=== PATIENT | female | born 1960 | race Caucasian/White ===

== ENCOUNTER 2016-06-27 16:48 | Emergency (ER) | payer MEDICAID ==
[2016-06-27 18:25] VITALS: BP 161/95
--- NOTE | 2016-06-27 20:13 | EDM.PDOC ---
ED HPI Trauma - General Chief Complaint: Lower Extremity Injury/Pain Stated Complaint: ANKLE/FEET EDEMA Time Seen by Provider: 06/27/16 20:03 Source: Reports: Patient History Limitations: Reports: No limitations - History of Present Illness INITIAL COMMENTS - FREE TEXT/NARRATIVE: And this lady comes to the emergency department today complaining of her ankles and feet swelling for one day. She says this has never happened before and she is worried about what's happening. She denies any shortness of breath. There is no history of heart or kidney disease. She says she's taking a lot of medications but no diuretics. She's not complaining of any kind of chest pain or palpitations. She has a local primary care provider Allergies/ADRs: Allergies bupropion HCl [From Wellbutrin] Allergy (Verified 06/27/16 18:11) Tremors cortisone [Cortisone] Allergy (Verified 06/27/16 18:11) Itching duloxetine HCl [From Cymbalta] Allergy (Verified 06/27/16 18:11) Hallucinations escitalopram [From Lexapro] Allergy (Verified 06/27/16 18:11) Cannot Remember CANNOT TAKE GENERIC LEXAPRO, BUT CAN TAKE REAL LEXAPRO fluoxetine HCl [From Prozac] Allergy (Verified 06/27/16 18:11) Cannot Remember Influenza Virus Vaccines Allergy (Verified 06/27/16 18:11) Cannot Remember levofloxacin [From Levaquin] Allergy (Verified 06/27/16 18:11) Cannot Remember Penicillins Allergy (Verified 06/27/16 18:11) Airway Tightness tiotropium bromide [From Spiriva with HandiHaler] Allergy (Verified 06/27/16 18: 11) Cannot Remember aspirin Adverse Reaction (Verified 06/27/16 18:11) Nausea codeine Adverse Reaction (Verified 06/27/16 18:11) Vomiting Home Medications: Ambulatory Orders LORazepam [Ativan] 0.5 mg PO Q6H PRN 01/05/13 [Confirmed 06/27/16] Multivitamin [Multi-Vitamin Daily] 1 each PO DAILY 01/05/13 [Confirmed 06/27/16] SUMAtriptan [Imitrex] 50 mg PO ASDIRECTED PRN 01/05/13 [Confirmed 06/27/16] Prazosin HCl [Prazosin] 3 mg PO BEDTIME PRN 05/01/14 [Confirmed 06/27/16] Acetaminophen [Tylenol Extra Strength] 500 mg PO Q6H PRN 08/01/14 [Confirmed 04/03] Gabapentin [Neurontin] 1,200 mg PO TID 08/01/14 [Confirmed 06/27/16] Lidocaine 5% [Lidoderm 5%] 1 patch TOP DAILY PRN 08/01/14 [Confirmed 06/27/16] cycloSPORINE [Restasis] 1 each OP BEDTIME 08/01/14 [Confirmed 06/27/16] Albuterol Sulfate [Proair Hfa] 1 puff IH Q4H PRN 09/04/14 [Confirmed 06/27/16] Omeprazole [Prilosec] 40 mg PO BID 09/04/14 [Confirmed 06/27/16] Amitriptyline [Elavil] 50 mg PO BEDTIME 04/02/16 [Confirmed 06/27/16] Dicyclomine [Bentyl] 10 mg PO QID PRN 04/02/16 [Confirmed 06/27/16] Promethazine [Phenergan] 25 mg PO Q6H PRN 04/02/16 [Confirmed 06/27/16] Rizatriptan Benzoate [Maxalt] 10 mg PO BID PRN 04/02/16 [Confirmed 06/27/16] Past Medical History HEENT History: Reports: Impaired vision, Other (see below) Other HEENT History: Dry eyes Respiratory History: Reports: COPD, Pneumonia, recurrent Gastrointestinal History: Reports: Cholelithiasis, GERD Genitourinary History: Reports: Pyelonephritis 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: , 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 Musculoskeletal History: Reports: Back pain, chronic Neurological History: Reports: Migraines Psychiatric History: Reports: Depression Dermatologic History: Reports: Other (see below) Other Dermatologic History: scabies - Infectious Disease History Infectious Disease History: Reports: Chicken pox, Measles, Mumps - Past Surgical History HEENT Surgical History: Reports: None Respiratory Surgical History: Reports: None GI Surgical History: Reports: Appendectomy, Cholecystectomy, Colonoscopy, EGD, Hernia repair/other Female Surgical History: Reports: Breast biopsy, Hysterectomy, Salpingo- oophorectomy Neurological Surgical History: Reports: None Musculoskeletal Surgical History: Reports: Arthroscopic procedure Other Musculoskeletal Surgeries/Procedures:: acl repair on both Dermatological Surgical History: Reports: None Social & Family History - Tobacco Use Smoking Status *Q: Current Every Day Smoker Years of Tobacco use: 40 Packs/Tins Daily: 0.2 Used Tobacco, but Quit: No Month Tobacco Last Used: august Second Hand Smoke Exposure: No - Caffeine Use Caffeine Use: Reports: Coffee - Alcohol Use Days Per Week of Alcohol Use: 0 Number of Drinks Per Day: 1 Total Drinks Per Week: 0 - Recreational Drug Use Recreational Drug Use: Yes Drug Use in Last 12 Months: Yes Recreational Drug Type: Reports: Marijuana/Hashish Recreational Drug Use Frequency: Weekly Recreational Drug Last Use: 09/04 Review of Systems - Review of Systems Review Of Systems: ROS reveals no pertinent complaints other than HPI. Trauma Exam - Physical Exam Exam: See Below Exam Limited By: Uncooperative General Appearance: Reports: alert, no apparent distress Head: Reports: atraumatic Eyes: bilateral eye: normal inspection Throat/Mouth: Reports: Normal oropharynx Respiratory Exam: Reports: lungs clear Cardiovascular: Reports: regular rate, rhythm, no murmur GI/Abdominal: Reports: non tender Extremities: Reports: pedal edema (Maximum 1+ pedal edema) Neurologic: Reports: no motor/sensory deficits, normal mood/affect Skin: Reports: Normal color Course - Vital Signs Last Recorded V/S: Last Vital Signs Temp 36.1 C 06/27/16 18:25 Pulse 90 06/27/16 18:25 Resp 20 06/27/16 18:25 BP 161/95 H 06/27/16 18:25 Pulse Ox 98 06/27/16 18:25 - Re-Assessments/Exams Free Text/Narrative Re-Assessment/Exam: 06/27/16 20:11 I explained to this lady that do to the ER being overloaded it would take at least another 3 hours or so if I were to order labs for her. I don't think that 's really needed so I offered to just treat her with a diuretic and she can followup with her primary care provider in a few days and she wanted to do that I think that's is perfectly appropriate in this situation. Departure - Departure Time of Disposition: 20:12 Disposition: Home, Self-Care 01 Condition: fair Clinical Impression: Pedal edema Forms: ED Department Discharge Additional Instructions: Take furosemide 20 mg daily only as needed for excess fluid. See your primary care provider sometime within the next few days. Return to the ER anytime if needed
== END 2016-06-27 20:24 | disposition home or self-care (01) ==
LOC: JP.ED 16:48
DX: R60.0 Localized edema (principal); J44.9 Chronic obstructive pulmonary disease, unspecified; F17.210 Nicotine dependence, cigarettes, uncomplicated; Z88.8 Allergy status to other drugs, medicaments and biological substances; Z79.899 Other long term (current) drug therapy; Z88.0 Allergy status to penicillin
CPT/HCPCS: 99283

== ENCOUNTER 2016-10-31 06:49 | Emergency (ER) | payer MEDICAID ==
[2016-10-31] MEDS ORDERED: HYDROmorphone 1 MG/ML Syringe IM ONE (08:05)
[2016-10-31] MEDS ORDERED: Ondansetron 4 MG Tab.DIS PO ONE (08:06)
[2016-10-31 08:49] VITALS: BP 120/70
--- NOTE | 2016-10-31 09:25 | EDM.PDOC ---
ED HPI GENERAL MEDICAL PROBLEM - General Chief Complaint: Lower Extremity Injury/Pain Stated Complaint: L KNEE PAIN Time Seen by Provider: 10/31/16 07:54 Source of Information: Reports: Patient History Limitations: Reports: No Limitations - History of Present Illness INITIAL COMMENTS - FREE TEXT/NARRATIVE: This lady had a left total knee replacement on October 13. Afterwards she went to a rehabilitation facility until 6 days ago. Now she's back home she has a prescription for oxycodone 5 mg every 4 hours when necessary last night she had a bad night. She was nauseated she was tossing and turning and never could get comfortable. She wasn't able to take her pain medications because she was nauseated this morning she felt a little bit hot clammy and cold. She never had any chest pain or palpitations. She does complain of a lot of pain to her knee and feels like the knee is getting a little bit warm. She can bear weight on it however. She is still able to move it without much difficulty. Left Knee Pain Score (Numeric/FACES): 8 - Related Data Allergies Allergy/AdvReac Type Severity Reaction Status Date / Time bupropion HCl Allergy Tremors Verified 10/31/16 07:16 [From Wellbutrin] cortisone [Cortisone] Allergy Itching Verified 10/31/16 07:16 duloxetine HCl Allergy Hallucinati Verified 10/31/16 07:16 [From Cymbalta] ons escitalopram [From Lexapro] Allergy Cannot Verified 10/31/16 07:16 Remember fluoxetine HCl [From Prozac] Allergy Cannot Verified 10/31/16 07:16 Remember Influenza Virus Vaccines Allergy Cannot Verified 10/31/16 07:16 Remember levofloxacin [From Levaquin] Allergy Cannot Verified 10/31/16 07:16 Remember Penicillins Allergy Airway Verified 10/31/16 07:16 Tightness tiotropium bromide Allergy Cannot Verified 10/31/16 07:16 [From Spiriva with Remember HandiHaler] aspirin AdvReac Nausea Verified 10/31/16 07:16 codeine AdvReac Vomiting Verified 10/31/16 07:16 Home Meds: Home Meds LORazepam [Ativan] 0.5 mg PO Q6H PRN 01/05/13 [History] SUMAtriptan [Imitrex] 50 mg PO ASDIRECTED PRN 01/05/13 [History] Prazosin HCl [Prazosin] 3 mg PO BEDTIME PRN 05/01/14 [History] Acetaminophen [Tylenol Extra Strength] 500 mg PO Q6H PRN 08/01/14 [History] Gabapentin [Neurontin] 900 mg PO TID 08/01/14 [History] Lidocaine 5% [Lidoderm 5%] 1 patch TOP DAILY PRN 08/01/14 [History] cycloSPORINE [Restasis] 1 each OP BEDTIME 08/01/14 [History] Albuterol Sulfate [Proair Hfa] 1 puff IH Q4H PRN 09/04/14 [History] Omeprazole [Prilosec] 40 mg PO BID 09/04/14 [History] Dicyclomine [Bentyl] 10 mg PO QID PRN 04/02/16 [History] Promethazine [Phenergan] 25 mg PO Q6H PRN 04/02/16 [History] Rizatriptan Benzoate [Maxalt] 10 mg PO BID PRN 04/02/16 [History] oxyCODONE 5 mg PO Q4H 10/31/16 [History] Past Medical History HEENT History: Reports: Impaired Vision Other HEENT History: Dry eyes Respiratory History: Reports: COPD, Pneumonia, Recurrent Gastrointestinal History: Reports: Cholelithiasis, GERD Genitourinary History: Reports: Pyelonephritis 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: , 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 Musculoskeletal History: Reports: Back Pain, Chronic Neurological History: Reports: Migraines Psychiatric History: Reports: Anxiety, Depression Dermatologic History: Reports: Other (See Below) Other Dermatologic History: scabies - Infectious Disease History Infectious Disease History: Reports: Chicken Pox, Measles, Mumps, Pertussis ( Whooping Cough) - Past Surgical History GI Surgical History: Reports: Appendectomy, Cholecystectomy, Colonoscopy, EGD, Hernia Repair/Other Female Surgical History: Reports: Breast Biopsy, Hysterectomy, Salpingo- Oophorectomy Neurological Surgical History: Reports: None Musculoskeletal Surgical History: Reports: Arthroscopic Procedure, Knee Replacement Social & Family History - Tobacco Use Smoking Status *Q: Current Every Day Smoker Years of Tobacco use: 40 Packs/Tins Daily: 0.5 Used Tobacco, but Quit: No Month Tobacco Last Used: august Second Hand Smoke Exposure: No - Caffeine Use Caffeine Use: Reports: Coffee, Soda - Alcohol Use Days Per Week of Alcohol Use: 0 Number of Drinks Per Day: 1 Total Drinks Per Week: 0 - Recreational Drug Use Recreational Drug Use: Yes Drug Use in Last 12 Months: Yes Recreational Drug Type: Reports: Marijuana/Hashish Recreational Drug Use Frequency: Weekly Recreational Drug Last Use: 09/04 Review of Systems - Review of Systems Review Of Systems: ROS reveals no pertinent complaints other than HPI. Constitutional: Reports: Other (See history of present illness) Eyes: Reports: No Symptoms, Other Ears: Reports: Previous Injury Mouth/Throat: Reports: No Symptoms Respiratory: Reports: No Symptoms Cardiovascular: Reports: No Symptoms GI/Abdominal: Reports: Other (See history of present illness) Genitourinary: Reports: No Symptoms Musculoskeletal: Reports: Other Skin: Reports: No Symptoms (See history of present illness) ED EXAM, GENERAL - Physical Exam Exam: See Below Exam Limited By: No Limitations General Appearance: Alert, Obese Eye Exam: Bilateral Eye: Normal Inspection Throat/Mouth: Normal Oropharynx Respiratory/Chest: Lungs Clear Cardiovascular: Regular Rate, Rhythm Extremities: Other (There is a midline scar to the left knee. It has some tape on it the incision appears to be intact there is no drainage. There some just slight erythema to the anterior part of the knee it's slightly warm it's nontender she's able to move it about 30-45 without too much pain. There is no swelling of the calf or foot calf and foot are nontender and no discoloration.) Course - Vital Signs Last Recorded V/S: Last Vital Signs Temp 36.4 C 10/31/16 08:48 Pulse 75 10/31/16 08:48 Resp 14 10/31/16 08:48 BP 120/70 10/31/16 08:48 Pulse Ox 100 10/31/16 08:48 - Orders/Labs/Meds Labs: Laboratory Tests 10/31/16 10/31/16 Range/Units 08:10 08:10 WBC 6.2 (4.5-11.0) K/uL RBC 3.89 (3.30-5.50) M/uL Hgb 11.9 L (12.0-15.0) g/dL Hct 36.1 (36.0-48.0) % MCV 93 (80-98) fL MCH 31 (27-31) pg MCHC 33 (32-36) % Plt Count 434 H (150-400) K/uL Neut % (Auto) 68 H (36-66) % Lymph % (Auto) 18 L (24-44) % Branch % (Auto) 8 H (2-6) % Eos % (Auto) 5 H (2-4) % Baso % (Auto) 1 (0-1) % Sodium 141 (140-148) mmol/L Potassium 3.7 (3.6-5.2) mmol/L Chloride 105 (100-108) mmol/L Carbon Dioxide 29 (21-32) mmol/L Anion Gap 7.5 (5.0-14.0) mmol/L BUN 11 (7-18) mg/dL Creatinine 0.8 (0.6-1.0) mg/dL Est Cr Clr Drug Dosing 67.80 mL/min Estimated GFR (MDRD) > 60 (>60) Glucose 111 H (74-106) mg/dL Calcium 9.6 D (8.5-10.1) mg/dL Meds: Medications Discontinued Medications Generic Name Dose Route Start Last Admin Trade Name Rafael PRN Reason Stop Dose Admin Hydromorphone HCl 2 mg 10/31/16 08:05 10/31/16 08:30 Dilaudid IM 10/31/16 08:06 2 mg ONETIME ONE Administration Ondansetron HCl 8 mg 10/31/16 08:06 10/31/16 08:30 Zofran Odt PO 10/31/16 08:07 8 mg ONETIME ONE Administration - Re-Assessments/Exams Free Text/Narrative Re-Assessment/Exam: 10/31/16 09:23 She received Dilaudid 1.5 mg IM and Zofran 8 mg sublingual. This is given her good pain relief. A CBC and chem show no suggestion of any infectious process. Departure - Departure Time of Disposition: 09:24 Disposition: Home, Self-Care 01 Condition: Fair Clinical Impression: Inadequate pain control - Discharge Information Forms: ED Department Discharge Additional Instructions: Continue to use the oxycodone. You may increase it to 2 tablets, that is 10 mg every 4 hours as needed. You may take some Tylenol along with each dose. For nausea take the ondansetron either 4 or 8 mg sublingual every 6-8 hours. If you notice any worsening symptoms with your knee then be sure to see a doctor and have it rechecked.
== END 2016-10-31 09:49 | disposition home or self-care (01) ==
LOC: JP.ED 06:49
DX: M25.562 Pain in left knee (principal); J44.9 Chronic obstructive pulmonary disease, unspecified; K21.9 Gastro-esophageal reflux disease without esophagitis; F41.9 Anxiety disorder, unspecified; F32.9 Major depressive disorder, single episode, unspecified; F17.210 Nicotine dependence, cigarettes, uncomplicated; Z79.899 Other long term (current) drug therapy; Z88.0 Allergy status to penicillin; Z88.1 Allergy status to other antibiotic agents; Z88.5 Allergy status to narcotic agent; Z88.8 Allergy status to other drugs, medicaments and biological substances; Z96.652 Presence of left artificial knee joint; Z90.49 Acquired absence of other specified parts of digestive tract; Z90.710 Acquired absence of both cervix and uterus; Z98.890 Other specified postprocedural states
CPT/HCPCS: 36415; 80048; 85025; 96372; 99284; A9270; J1170

== ENCOUNTER 2016-11-01 03:08 | Emergency (ER) | payer MEDICAID ==
[2016-11-01 03:25] VITALS: BP 131/95
[2016-11-01] MEDS ORDERED: Sodium Chloride 0.9% 10 ML Syringe FLUSH PRN (03:42)
[2016-11-01] MEDS ORDERED: Prochlorperazine 10 MG/2 ML SDV IVPUSH ONE (03:42)
[2016-11-01] MEDS ORDERED: LORazepam 2 MG/ML MDV IVPUSH ONE (03:42)
[2016-11-01] MEDS ORDERED: HYDROmorphone 1 MG/ML Syringe IVPUSH ONE (03:42)
[2016-11-01] MEDS ORDERED: Sodium Chloride 0.9% 1,000 ML IV SCH (03:45)
--- NOTE | 2016-11-01 03:46 | EDM.PDOC ---
ED HPI GENERAL MEDICAL PROBLEM - General Chief Complaint: Lower Extremity Injury/Pain Stated Complaint: MEDICAL VIA [facility] Time Seen by Provider: 11/01/16 03:36 Source of Information: Reports: Patient, RN Notes Reviewed History Limitations: Reports: No Limitations - History of Present Illness INITIAL COMMENTS - FREE TEXT/NARRATIVE: 66-year-old female presents emergency department day complaint of ongoing left knee pain she is postop knee replacement on 13 October she initially tried hydrocodone inadequate pain control she was then switched to oxycodone she continues to have nausea and vomiting unable to keep pain medication down feels her pain is inadequately controlled. Was in the emergency department within the last 24 hours same complaint was given Dilaudid and Zofran. 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(s), Other (see below) Other Treatments CHECKERING MACHINE ADJUSTER: oxycodone, zofran Left Knee Pain Score (Numeric/FACES): 6 Left groin Pain Score (Numeric/FACES): 8 - Related Data Allergies Allergy/AdvReac Type Severity Reaction Status Date / Time bupropion HCl Allergy Tremors Verified 10/31/16 07:16 [From Wellbutrin] cortisone [Cortisone] Allergy Itching Verified 10/31/16 07:16 duloxetine HCl Allergy Hallucinati Verified 10/31/16 07:16 [From Cymbalta] ons escitalopram [From Lexapro] Allergy Cannot Verified 10/31/16 07:16 Remember fluoxetine HCl [From Prozac] Allergy Cannot Verified 10/31/16 07:16 Remember Influenza Virus Vaccines Allergy Cannot Verified 10/31/16 07:16 Remember levofloxacin [From Levaquin] Allergy Cannot Verified 10/31/16 07:16 Remember Penicillins Allergy Airway Verified 10/31/16 07:16 Tightness tiotropium bromide Allergy Cannot Verified 10/31/16 07:16 [From Spiriva with Remember HandiHaler] aspirin AdvReac Nausea Verified 10/31/16 07:16 codeine AdvReac Vomiting Verified 10/31/16 07:16 Home Meds: Home Meds LORazepam [Ativan] 0.5 mg PO Q6H PRN 01/05/13 [History] SUMAtriptan [Imitrex] 50 mg PO ASDIRECTED PRN 01/05/13 [History] Prazosin HCl [Prazosin] 3 mg PO BEDTIME PRN 05/01/14 [History] Acetaminophen [Tylenol Extra Strength] 500 mg PO Q6H PRN 08/01/14 [History] Gabapentin [Neurontin] 900 mg PO TID 08/01/14 [History] Lidocaine 5% [Lidoderm 5%] 1 patch TOP DAILY PRN 08/01/14 [History] cycloSPORINE [Restasis] 1 each OP BEDTIME 08/01/14 [History] Albuterol Sulfate [Proair Hfa] 1 puff IH Q4H PRN 09/04/14 [History] Omeprazole [Prilosec] 40 mg PO BID 09/04/14 [History] Dicyclomine [Bentyl] 10 mg PO QID PRN 04/02/16 [History] Promethazine [Phenergan] 25 mg PO Q6H PRN 04/02/16 [History] Rizatriptan Benzoate [Maxalt] 10 mg PO BID PRN 04/02/16 [History] oxyCODONE 5 mg PO Q4H 10/31/16 [History] Past Medical History HEENT History: Reports: Impaired Vision Other HEENT History: Dry eyes Respiratory History: Reports: COPD, Pneumonia, Recurrent Gastrointestinal History: Reports: Cholelithiasis, GERD Genitourinary History: Reports: Pyelonephritis 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: , 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 Musculoskeletal History: Reports: Back Pain, Chronic Neurological History: Reports: Migraines Psychiatric History: Reports: Anxiety, Depression Dermatologic History: Reports: Other (See Below) Other Dermatologic History: scabies - Infectious Disease History Infectious Disease History: Reports: Chicken Pox - Past Surgical History GI Surgical History: Reports: Appendectomy, Cholecystectomy, Colonoscopy, EGD, Hernia Repair/Other Female Surgical History: Reports: Breast Biopsy, Hysterectomy, Salpingo- Oophorectomy Musculoskeletal Surgical History: Reports: Arthroscopic Procedure, Knee Replacement, Other (See Below) Other Musculoskeletal Surgeries/Procedures:: Left knee replacement 10/13/16 Social & Family History - Family History Family Medical History: Unobtainable - Tobacco Use Smoking Status *Q: Current Status Unknown Years of Tobacco use: 40 Packs/Tins Daily: 0.5 Used Tobacco, but Quit: No Month Tobacco Last Used: august Second Hand Smoke Exposure: No - Caffeine Use Caffeine Use: Reports: Coffee - Alcohol Use Days Per Week of Alcohol Use: 0 Number of Drinks Per Day: 1 Total Drinks Per Week: 0 - Recreational Drug Use Recreational Drug Use: No Drug Use in Last 12 Months: Yes Recreational Drug Type: Reports: Marijuana/Hashish Recreational Drug Use Frequency: Weekly Recreational Drug Last Use: 09/04 Review of Systems - Review of Systems Review Of Systems: See Below Constitutional: Reports: No Symptoms Respiratory: Reports: No Symptoms Cardiovascular: Reports: No Symptoms GI/Abdominal: Reports: Nausea, Vomiting Musculoskeletal: Reports: Joint Pain ED EXAM, GENERAL - Physical Exam Exam: See Below Free Text/Narrative:: Examination at the knee surgical wounds clean dry and intact is mild erythema around the surgical incision but it is not warm to the touch nonspecifically tender to the touch mild amount of edema noted but not out of the ordinary postoperative Exam Limited By: No Limitations General Appearance: Alert, WD/WN, Moderate Distress Respiratory/Chest: No Respiratory Distress, Lungs Clear, Normal Breath Sounds, No Accessory Muscle Use Cardiovascular: Regular Rate, Rhythm, No Murmur GI/Abdominal: Soft, Non-Tender Course - Vital Signs Last Recorded V/S: Last Vital Signs Temp 97.5 F 11/01/16 03:17 Pulse 96 11/01/16 03:17 Resp 14 11/01/16 03:17 BP 131/95 H 11/01/16 03:17 Pulse Ox 98 11/01/16 03:17 - Orders/Labs/Meds Orders: Active Orders 24 hr Category Date Time Status Peripheral IV Care [RC] . DIRECTED Care 11/01/16 03:42 Active Sodium Chloride 0.9% [Normal Saline] 1,000 ml Med 11/01/16 03:45 Active IV ASDIRECTED Sodium Chloride 0.9% [Saline Flush] Med 11/01/16 03:42 Active 10 ml FLUSH ASDIRECTED PRN Peripheral IV Insertion Adult [OM.PC] Urgent Oth 11/01/16 03:41 Ordered Medication Orders Sodium Chloride (Normal Saline) 1,000 mls @ 500 mls/hr IV ASDIRECTED ISABEL Last Admin: 11/01/16 04:01 Dose: 500 mls/hr Sodium Chloride (Saline Flush) 10 ml FLUSH ASDIRECTED PRN PRN Reason: Keep Vein Open Last Admin: 11/01/16 03:55 Dose: 10 ml Meds: Medications Generic Name Dose Route Start Last Admin Trade Name Rafael PRN Reason Stop Dose Admin Sodium Chloride 1,000 mls @ 500 mls/hr 11/01/16 03:45 11/01/16 04:01 Normal Saline IV 500 mls/hr ASDIRECTED ISABEL Administration Sodium Chloride 10 ml 11/01/16 03:42 11/01/16 03:55 Saline Flush FLUSH 10 ml ASDIRECTED PRN Administration Keep Vein Open Discontinued Medications Generic Name Dose Route Start Last Admin Trade Name Rafael PRN Reason Stop Dose Admin Hydromorphone HCl 1 mg 11/01/16 03:42 11/01/16 04:18 Dilaudid IVPUSH 11/01/16 03:43 1 mg ONETIME ONE Administration Lorazepam 1 mg 11/01/16 03:42 11/01/16 04:16 Ativan IVPUSH 11/01/16 03:43 1 mg ONETIME ONE Administration Prochlorperazine Edisylate 5 mg 11/01/16 03:42 11/01/16 04:08 Compazine IVPUSH 11/01/16 03:43 5 mg ONETIME ONE Administration Departure - Departure Time of Disposition: 06:32 Disposition: Home, Self-Care 01 Condition: Fair Clinical Impression: Inadequate pain control - Discharge Information Forms: ED Department Discharge Additional Instructions: Use Toradol as needed for pain control in combination with Tylenol, Please followup with your primary care provider in 3-5 days if not better, please call return to the emergency department with worsening of symptoms. - My Orders Last 24 Hours: My Active Orders 11/01/16 03:41 Peripheral IV Insertion Adult [OM.PC] Urgent 11/01/16 03:42 Peripheral IV Care [RC] . DIRECTED Sodium Chloride 0.9% [Saline Flush] 10 ml FLUSH ASDIRECTED PRN 11/01/16 03:45 Sodium Chloride 0.9% [Normal Saline] 1,000 ml IV ASDIRECTED - Assessment/Plan Last 24 Hours: My Active Orders 11/01/16 03:41 Peripheral IV Insertion Adult [OM.PC] Urgent 11/01/16 03:42 Peripheral IV Care [RC] . DIRECTED Sodium Chloride 0.9% [Saline Flush] 10 ml FLUSH ASDIRECTED PRN 11/01/16 03:45 Sodium Chloride 0.9% [Normal Saline] 1,000 ml IV ASDIRECTED Plan: Assessment Acuity = acute Site and laterality = postoperative pain complicated patient with significant anxiety Etiology = right knee replacement Manifestations = none Location of injury = Home Lab values = none Plan We will to get her pain under control combination Dilaudid Ativan recommended by discontinuing the Percocet try Toradol as needed for pain in combination with Tylenol keep follow-up appointment with the orthopedics Patient was in agreement with the plan all questions were answered, they were instructed to return to the emergency department or call for worsening symptoms. This note was dictated using [email or web address] voice recognition software please call with any questions.
== END 2016-11-01 07:50 | disposition home or self-care (01) ==
LOC: JP.ED 03:08
DX: G89.18 Other acute postprocedural pain (principal); M25.562 Pain in left knee; Z79.899 Other long term (current) drug therapy; H54.7 Unspecified visual loss; J44.9 Chronic obstructive pulmonary disease, unspecified; Z87.01 Personal history of pneumonia (recurrent); K21.9 Gastro-esophageal reflux disease without esophagitis; Z88.8 Allergy status to other drugs, medicaments and biological substances; Z90.49 Acquired absence of other specified parts of digestive tract; Z90.710 Acquired absence of both cervix and uterus; Z96.659 Presence of unspecified artificial knee joint
CPT/HCPCS: 96361; 96374; 96375; 99283; J0780; J1170; J2060; J7040; J7050

== ENCOUNTER 2017-06-10 19:28 | Emergency (ER) | payer MEDICAID ==
[2017-06-10] MEDS ORDERED: Sodium Chloride 0.9% 10 ML Syringe FLUSH PRN (20:09)
[2017-06-10] MEDS ORDERED: Promethazine 25 MG/ML SDV IM ONE (20:14)
[2017-06-10] MEDS ORDERED: Lactated Ringers 1,000 ML IV SCH (20:15)
[2017-06-10] MEDS ORDERED: Ketorolac 30 MG/ML SDV IVPUSH ONE (20:16)
--- NOTE | 2017-06-10 20:16 | EDM.PDOC ---
ED HPI GENERAL MEDICAL PROBLEM - General Chief Complaint: Headache Stated Complaint: [facility] Time Seen by Provider: 06/10/17 19:45 Source of Information: Reports: Patient History Limitations: Reports: No Limitations - History of Present Illness INITIAL COMMENTS - FREE TEXT/NARRATIVE: Maylin presents today per EMS with complaints of nausea, vomiting, muscle aches and migraine since 1300 today. Maylin reports sudden onset while driving. She states she tried to lay down, she tried her maxalt and had more vomiting with photophobia. She also reports influenza exposure in her apartment building. She denies fever, diarrhea or recent injury. 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 ) Other Treatments CLINICAL RESEARCH NURSE: IM zofran Headache Pain Score (Numeric/FACES): 7 - Related Data Allergies Allergy/AdvReac Type Severity Reaction Status Date / Time cortisone [Cortisone] Allergy Itching Verified 06/10/17 19:35 escitalopram [From Lexapro] Allergy Cannot Verified 06/10/17 19:35 Remember fluoxetine HCl [From Prozac] Allergy Cannot Verified 06/10/17 19:35 Remember Influenza Virus Vaccines Allergy Cannot Verified 06/10/17 19:35 Remember levofloxacin [From Levaquin] Allergy Cannot Verified 06/10/17 19:35 Remember Penicillins Allergy Airway Verified 06/10/17 19:35 Tightness tiotropium bromide Allergy Cannot Verified 06/10/17 19:35 [From Spiriva with Remember HandiHaler] aspirin AdvReac Nausea Verified 06/10/17 19:35 bupropion HCl AdvReac Tremors Verified 06/10/17 19:35 [From Wellbutrin] codeine AdvReac Vomiting Verified 06/10/17 19:35 duloxetine HCl AdvReac Hallucinati Verified 06/10/17 19:35 [From Cymbalta] ons Home Meds: Home Meds LORazepam [Ativan] 0.5 mg PO Q6H PRN 01/05/13 [History] Prazosin HCl [Prazosin] 3 mg PO BEDTIME PRN 05/01/14 [History] Acetaminophen [Tylenol Extra Strength] 500 mg PO Q6H PRN 08/01/14 [History] Gabapentin [Neurontin] 900 mg PO TID 08/01/14 [History] Lidocaine 5% [Lidoderm 5%] 1 patch TOP DAILY PRN 08/01/14 [History] cycloSPORINE [Restasis] 1 each OP BEDTIME 08/01/14 [History] Albuterol Sulfate [Proair Hfa] 1 puff IH Q4H PRN 09/04/14 [History] Omeprazole [Prilosec] 40 mg PO BID 09/04/14 [History] Promethazine [Phenergan] 25 mg PO Q6H PRN 04/02/16 [History] Rizatriptan Benzoate [Maxalt] 10 mg PO BID PRN 04/02/16 [History] ARIPiprazole [Aripiprazole] 1 mg PO DAILY 06/10/17 [History] Past Medical History HEENT History: Reports: Impaired Vision Other HEENT History: Dry eyes Respiratory History: Reports: COPD, Pneumonia, Recurrent Gastrointestinal History: Reports: Cholelithiasis, GERD Genitourinary History: Reports: Pyelonephritis 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: , 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 Musculoskeletal History: Reports: Back Pain, Chronic Neurological History: Reports: Migraines Psychiatric History: Reports: Anxiety, Depression Dermatologic History: Reports: Other (See Below) Other Dermatologic History: scabies - Infectious Disease History Infectious Disease History: Reports: Chicken Pox, Measles, Mumps - Past Surgical History GI Surgical History: Reports: Appendectomy, Cholecystectomy, Colonoscopy, EGD, Hernia Repair/Other Female Surgical History: Reports: Breast Biopsy, Hysterectomy, Salpingo- Oophorectomy Musculoskeletal Surgical History: Reports: Arthroscopic Procedure, Knee Replacement, Other (See Below) Other Musculoskeletal Surgeries/Procedures:: Left knee replacement 10/13/16 Social & Family History - Family History Family Medical History: Unobtainable - Tobacco Use Smoking Status *Q: Current Every Day Smoker Years of Tobacco use: 40 Packs/Tins Daily: 0.5 Used Tobacco, but Quit: No Month Tobacco Last Used: august Second Hand Smoke Exposure: No - Caffeine Use Caffeine Use: Reports: Coffee, Soda - Alcohol Use Days Per Week of Alcohol Use: 2 Number of Drinks Per Day: 1 Total Drinks Per Week: 2 - Recreational Drug Use Recreational Drug Use: Yes Drug Use in Last 12 Months: Yes Recreational Drug Type: Reports: Marijuana/Hashish Recreational Drug Use Frequency: Daily Recreational Drug Last Use: 09/04 ED ROS GENERAL - Review of Systems Review Of Systems: See Below Constitutional: Reports: Chills. Denies: Fever, Malaise, Weakness HEENT: Reports: Other (She reports photophobia with her migraine. ). Denies: Ear Pain, Eye Pain, Throat Pain, Vision Change Respiratory: Denies: Shortness of Breath, Wheezing, Cough, Sputum, Hemoptysis Cardiovascular: Denies: Chest Pain, Blood Pressure Problem, Dyspnea on Exertion , Edema, Lightheadedness, Palpitations, PND, Syncope Endocrine: Reports: No Symptoms GI/Abdominal: Reports: Nausea, Vomiting. Denies: Black Stool, Bloody Stool, Constipation, Diarrhea, Difficulty Swallowing, Distension, Hematemesis, Hematochezia : Reports: No Symptoms Musculoskeletal: Reports: Other (generalized body aches, muscle aches) Skin: Denies: Cyanosis, Dryness, Pruritis, Rash, Erythema Neurological: Reports: Headache. Denies: Dizziness, Numbness, Syncope, Tingling , Trouble Speaking Psychiatric: Reports: No Symptoms Hematologic/Lymphatic: Reports: No Symptoms Immunologic: Reports: No Symptoms - Physical Exam Exam: See Below Text/Narrative:: Maylin is an alert and oriented 56 year old female presenting with sudden onset migraine without aura, nausea and vomiting. She tried resting, a dark room and use of maxalt without much relief. She reports her nausea and vomiting became worse since onset and she called 911. Exam Limited By: No Limitations General Appearance: Alert, Mild Distress Eye Exam: Bilateral Eye: EOMI, Normal Inspection, PERRL Ears: Normal External Exam, Normal Canal, Hearing Grossly Normal, Normal TMs Nose: Normal Inspection, Normal Mucosa, No Blood Throat/Mouth: Normal Inspection, Normal Lips, Normal Oropharynx, Normal Voice, No Airway Compromise Head Exam: Atraumatic, Normocephalic Neck: Normal Inspection, Supple, Non-Tender, Full Range of Motion. No: Lymphadenopathy (R), Lymphadenopathy (L) Respiratory/Chest: No Respiratory Distress, Lungs Clear, Normal Breath Sounds, No Accessory Muscle Use, Chest Non-Tender Cardiovascular: Normal Peripheral Pulses, Regular Rate, Rhythm, No Edema, No Gallop, No Murmur, No Rub GI/Abdominal: Normal Bowel Sounds, Soft, Non-Tender, No Organomegaly, No Distention, Other (obese) Neuro Exam (Abbreviated): Alert, Oriented, CN II-XII Intact, Normal Cognition, Normal Gait, No Motor/Sensory Deficits DTR: 2+: Patella (R), Patella (L), Achilles (R), Achilles (L) Back Exam: Normal Inspection, Full Range of Motion. No: CVA Tenderness (R), CVA Tenderness (L) Extremities: Normal Inspection, Normal Range of Motion, Non-Tender, No Pedal Edema, Normal Capillary Refill Psychiatric: Normal Affect, Normal Mood Skin Exam: Warm, Dry, Intact, Normal Color, No Rash Course - Vital Signs Last Recorded V/S: Last Vital Signs Temp 35.9 C 06/10/17 21:56 Pulse 80 06/10/17 21:56 Resp 16 06/10/17 21:56 BP 139/86 06/10/17 21:56 Pulse Ox 98 06/10/17 21:56 - Orders/Labs/Meds Orders: Active Orders 24 hr Category Date Time Status Lactated Ringers [Ringers, Lactated] 1,000 ml Med 06/10/17 20:15 Active IV ASDIRECTED Sodium Chloride 0.9% [Saline Flush] Med 06/10/17 20:09 Active 10 ml FLUSH ASDIRECTED PRN Saline Lock Insert [OM.PC] Routine Oth 06/10/17 20:09 Ordered Medication Orders Lactated Ringer's (Ringers, Lactated) 1,000 mls @ 1,000 mls/hr IV ASDIRECTED ISABEL Last Admin: 06/10/17 20:25 Dose: 1,000 mls/hr Sodium Chloride (Saline Flush) 10 ml FLUSH ASDIRECTED PRN PRN Reason: Keep Vein Open Last Admin: 06/10/17 20:25 Dose: 10 ml Meds: Medications Generic Name Dose Route Start Last Admin Trade Name Freq PRN Reason Stop Dose Admin Lactated Ringer's 1,000 mls @ 1,000 mls/hr 06/10/17 20:15 06/10/17 20:25 Ringers, Lactated IV 1,000 mls/hr ASDIRECTED ISABEL Administration Sodium Chloride 10 ml 06/10/17 20:09 06/10/17 20:25 Saline Flush FLUSH 10 ml ASDIRECTED PRN Administration Keep Vein Open Discontinued Medications Generic Name Dose Route Start Last Admin Trade Name Freq PRN Reason Stop Dose Admin Dexamethasone 8 mg 06/10/17 21:35 06/10/17 21:50 Dexamethasone IVPUSH 06/10/17 21:36 8 mg ONETIME ONE Administration Diphenhydramine HCl 50 mg 06/10/17 20:17 06/10/17 20:38 Benadryl IVPUSH 06/10/17 20:18 50 mg ONETIME ONE Administration Haloperidol Lactate 5 mg 06/10/17 21:34 06/10/17 21:47 Haldol IVPUSH 06/10/17 21:35 5 mg ONETIME ONE Administration Lactated Ringer's 1,000 mls @ 1,000 mls/hr 06/10/17 21:37 06/10/17 21:45 Ringers, Lactated IV 06/10/17 22:36 1,000 mls/hr BOLUS ONE Administration Ketorolac Tromethamine 30 mg 06/10/17 20:16 06/10/17 20:42 Toradol IVPUSH 06/10/17 20:17 30 mg ONETIME ONE Administration Pantoprazole Sodium 40 mg 06/10/17 22:01 06/10/17 22:08 Protonix Iv IVPUSH 06/10/17 22:02 40 mg ONETIME ONE Administration Promethazine HCl 25 mg 06/10/17 20:14 06/10/17 20:46 Phenergan IM 06/10/17 20:15 25 mg ONETIME ONE Administration - Re-Assessments/Exams Free Text/Narrative Re-Assessment/Exam: 06/10/17 21:36 Patient reports her nausea has improved, however her headaches has not. We will try haldol and dexamethasone. 06/10/17 22:36 Maylin reports she feels much better, her nausea and burning in her stomach has resolved. She denies headache at this time. She will be discharged after completion of 2 liter lactated ringers. She is in agreement with plan. Departure - Departure Time of Disposition: 22:38 Disposition: Home, Self-Care 01 Condition: Good Clinical Impression: Nausea, Acid reflux, Migraine without aura - Discharge Information Referrals: PCP,None [Primary Care Provider] - Forms: ED Department Discharge Additional Instructions: You have been evaluated and treated for migraine with nausea and acid reflux tonight. Your influenza screen as negative. You were given IV fluids and medications for nausea, pain and acid reflux. It would be best for you to go home and sleep. Drink gatorade and water to keep yourself hydrated. Use acetaminophen and ibuprofen as needed for pain. Follow up with your primary provider in 7 to 10 days for recheck. Return for worsening, issues or concerns. - My Orders Last 24 Hours: My Active Orders 06/10/17 20:09 Sodium Chloride 0.9% [Saline Flush] 10 ml FLUSH ASDIRECTED PRN Saline Lock Insert [OM.PC] Routine 06/10/17 20:15 Lactated Ringers [Ringers, Lactated] 1,000 ml IV ASDIRECTED - Assessment/Plan Last 24 Hours: My Active Orders 06/10/17 20:09 Sodium Chloride 0.9% [Saline Flush] 10 ml FLUSH ASDIRECTED PRN Saline Lock Insert [OM.PC] Routine 06/10/17 20:15 Lactated Ringers [Ringers, Lactated] 1,000 ml IV ASDIRECTED Assessment:: Migraine without aura Nausea Acid reflux Plan: Patient evaluated and treated for migraine with nausea and acid reflux tonight. Influenza screen as negative. She was given IV fluids and medications for nausea, pain and acid reflux. It would be best for her to go home and sleep. Drink gatorade and water to keep herself hydrated. Use acetaminophen and ibuprofen as needed for pain. Follow up with primary provider in 7 to 10 days for recheck. Return for worsening, issues or concerns.
[2017-06-10] MEDS ORDERED: diphenhydrAMINE 50 MG/ML SDV IVPUSH ONE (20:17)
[2017-06-10] MEDS ORDERED: Haloperidol Lactate 5 MG/ML SDV IVPUSH ONE (21:34)
[2017-06-10] MEDS ORDERED: Dexamethasone 4 MG/ML SDV IVPUSH ONE (21:35)
[2017-06-10] MEDS ORDERED: Lactated Ringers 1,000 ML IV ONE (21:37)
[2017-06-10 21:58] VITALS: BP 139/86
[2017-06-10] MEDS ORDERED: Pantoprazole 40 MG Vial IVPUSH ONE (22:01)
== END 2017-06-10 22:50 | disposition home or self-care (01) ==
LOC: JP.ED 19:28
DX: G43.009 Migraine without aura, not intractable, without status migrainosus (principal); K21.9 Gastro-esophageal reflux disease without esophagitis; F17.210 Nicotine dependence, cigarettes, uncomplicated; Z88.1 Allergy status to other antibiotic agents; Z88.7 Allergy status to serum and vaccine; Z88.8 Allergy status to other drugs, medicaments and biological substances; Z88.0 Allergy status to penicillin; Z88.6 Allergy status to analgesic agent; Z88.5 Allergy status to narcotic agent; Z79.899 Other long term (current) drug therapy
CPT/HCPCS: 87804; 96361; 96372; 96374; 96375; 99284; C9113; J1100; J1200; J1630; J1885; J2550; J7050; J7120

== ENCOUNTER 2018-12-19 08:03 | Emergency (ER) | payer MEDICAID ==
[2018-12-19 08:24] VITALS: BP 120/76
--- NOTE | 2018-12-19 08:59 | EDM.PDOC ---
ED HPI GENERAL MEDICAL PROBLEM - General Chief Complaint: ENT Problem Stated Complaint: POSSIBLE TOOTH ABCESS, FEVER Time Seen by Provider: 12/19/18 08:52 Source of Information: Reports: Patient, Family, RN Notes Reviewed History Limitations: Reports: No Limitations - History of Present Illness INITIAL COMMENTS - FREE TEXT/NARRATIVE: 58-year-old female presents emergency department today complaint of dental pain she has fractured tooth and now she developed swelling over jaw has had fevers for the last 3 days Right Lower Tooth/Teeth Pain Score (Numeric/FACES): 10 - Related Data Allergies Allergy/AdvReac Type Severity Reaction Status Date / Time Penicillins Allergy Intermediate Airway Verified 12/19/18 08:24 Tightness cortisone [Cortisone] Allergy Itching Verified 12/19/18 08:24 fluoxetine HCl [From Prozac] Allergy Cannot Verified 12/19/18 08:24 Remember Influenza Virus Vaccines Allergy Cannot Verified 12/19/18 08:24 Remember levofloxacin [From Levaquin] Allergy Cannot Verified 12/19/18 08:24 Remember tiotropium bromide Allergy Cannot Verified 12/19/18 08:24 [From Spiriva with Remember HandiHaler] aspirin AdvReac Nausea Verified 12/19/18 08:24 bupropion HCl AdvReac Tremors Verified 12/19/18 08:24 [From Wellbutrin] codeine AdvReac Vomiting Verified 12/19/18 08:24 duloxetine HCl AdvReac Hallucinati Verified 12/19/18 08:24 [From Cymbalta] ons escitalopram [From Lexapro] AdvReac Cannot Verified 12/19/18 08:24 Remember Home Meds: Home Meds LORazepam [Ativan] 0.5 mg PO Q6H PRN 01/05/13 [History] Prazosin HCl [Prazosin] 3 mg PO BEDTIME PRN 05/01/14 [History] Acetaminophen [Tylenol Extra Strength] 500 mg PO Q6H PRN 08/01/14 [History] Gabapentin [Neurontin] 900 mg PO TID 08/01/14 [History] Lidocaine 5% [Lidoderm 5%] 1 patch TOP DAILY PRN 08/01/14 [History] Albuterol Sulfate [Proair Hfa] 1 puff IH Q4H PRN 09/04/14 [History] Omeprazole [Prilosec] 40 mg PO BID 09/04/14 [History] Promethazine [Phenergan] 25 mg PO Q6H PRN 04/02/16 [History] ARIPiprazole [Aripiprazole] 1 mg PO DAILY 06/10/17 [History] Escitalopram [Lexapro] 20 mg PO DAILY 12/19/18 [History] Mirtazapine 45 mg PO DAILY 12/19/18 [History] Past Medical History HEENT History: Reports: Impaired Vision Other HEENT History: Dry eyes Respiratory History: Reports: COPD, Pneumonia, Recurrent Gastrointestinal History: Reports: Cholelithiasis, GERD Genitourinary History: Reports: Pyelonephritis 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: , 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 Musculoskeletal History: Reports: Back Pain, Chronic, Fibromyalgia Neurological History: Reports: Migraines Psychiatric History: Reports: Anxiety, Depression, Suicide Attempt Dermatologic History: Reports: Other (See Below) Other Dermatologic History: scabies - Infectious Disease History Infectious Disease History: Reports: Chicken Pox, Measles, Mumps - Past Surgical History GI Surgical History: Reports: Appendectomy, Cholecystectomy, Colonoscopy, EGD, Hernia Repair/Other Female Surgical History: Reports: Breast Biopsy, Hysterectomy, Salpingo- Oophorectomy Musculoskeletal Surgical History: Reports: Arthroscopic Procedure, Knee Replacement, Other (See Below) Other Musculoskeletal Surgeries/Procedures:: Left knee replacement 10/13/16 Social & Family History - Family History Family Medical History: Unobtainable - Tobacco Use Smoking Status *Q: Current Every Day Smoker Years of Tobacco use: 43 Packs/Tins Daily: 1 - Caffeine Use Caffeine Use: Reports: Coffee - Recreational Drug Use Recreational Drug Use: No Recreational Drug Type: Reports: Marijuana/Hashish ED ROS ENT - Review of Systems Review Of Systems: See Below Constitutional: Reports: Fever HEENT: Reports: Dental Pain Respiratory: Reports: No Symptoms Cardiovascular: Reports: No Symptoms ED EXAM, ENT - Physical Exam Exam: See Below Text/Narrative:: Tooth #30 to his fractured it is tender to palpation Exam Limited By: No Limitations General Appearance: Alert, Mild Distress Ears: Normal External Exam, Normal Canal, Hearing Grossly Normal, Normal TMs Mouth/Throat: Normal Inspection, Normal Gums, Normal Lips, Normal Oropharynx Course - Vital Signs Last Recorded V/S: Last Vital Signs Temp 97.3 F 12/19/18 08:23 Pulse 89 12/19/18 08:23 Resp 16 12/19/18 08:23 BP 120/76 12/19/18 08:23 Pulse Ox 97 12/19/18 08:23 - Orders/Labs/Meds Meds: Medications Discontinued Medications Generic Name Dose Route Start Last Admin Trade Name Rafael PRN Reason Stop Dose Admin Ketorolac Tromethamine 60 mg 12/19/18 09:15 Toradol IM 12/19/18 09:16 ONETIME ONE Departure - Departure Time of Disposition: 09:18 Disposition: Home, Self-Care 01 Condition: Fair Clinical Impression: Dental abscess, Dental caries - Discharge Information Referrals: Jose Maria Mitchell MD [Primary Care Provider] - Forms: ED Department Discharge Additional Instructions: Take full course of antibiotics, please report to the dental clinic tomorrow morning at 8:15 - Assessment/Plan Plan: Assessment Acuity = acute Site and laterality = dental abscess tooth #32 Etiology = probable dental caries and bacteria Manifestations = fever Location of injury = Home Lab values = none Plan she is placed on clindamycin 300 mg by mouth 4 times a day 10 days, provided Toradol injection 60 mg 1, called discussed case with dental clinic they will be able to get her in tomorrow morning 8:15 at which time she will be assessed for further evaluation, she will continue to use ibuprofen or Tylenol as needed for pain controll This note was dictated using [employer] voice recognition software please call with any questions on syntax or grammar.
[2018-12-19] MEDS ORDERED: Ketorolac 60 MG/2 ML SDV IM ONE (09:15)
== END 2018-12-19 09:32 | disposition home or self-care (01) ==
LOC: JP.ED 08:03
DX: K04.7 Periapical abscess without sinus (principal); K02.9 Dental caries, unspecified; J44.9 Chronic obstructive pulmonary disease, unspecified; K21.9 Gastro-esophageal reflux disease without esophagitis; F41.9 Anxiety disorder, unspecified; F32.9 Major depressive disorder, single episode, unspecified; F17.210 Nicotine dependence, cigarettes, uncomplicated; Z88.0 Allergy status to penicillin; Z88.1 Allergy status to other antibiotic agents; Z88.7 Allergy status to serum and vaccine; Z88.8 Allergy status to other drugs, medicaments and biological substances; Z79.899 Other long term (current) drug therapy
CPT/HCPCS: 96372; 99282; J1885

== ENCOUNTER 2019-02-09 15:33 | Emergency (ER) | payer MEDICAID ==
[2019-02-09] MEDS ORDERED: Sodium Chloride 0.9% 10 ML Syringe FLUSH PRN (16:10)
[2019-02-09] MEDS ORDERED: Aspirin 81 MG Tab.Chew PO ONE (16:21)
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
--- NOTE | 2019-02-09 16:48 | CRLCR ---
INDICATION: Chest pain TECHNIQUE: Chest 2 views COMPARISON: April 15, 2018 FINDINGS: Cardiovascular and mediastinum: Heart size and vasculature are normal in caliber and appearance. Lungs and pleural spaces: Stable calcified granulomas in the right upper lobe. Remainder of the lungs and pleural spaces are clear. Bones and soft tissues: No significant findings. IMPRESSION: No acute findings and no significant changes from the prior exam. Dictated by Alberto Norman MD @ Feb 09 2019 4:45PM Signed by Dr. Alberto Norman @ Feb 09 2019 4:46PM
[2019-02-09 18:35] VITALS: BP 139/79; PULSE 80
== END 2019-02-09 19:04 | disposition home or self-care (01) ==
LOC: JP.ED 15:33
DX: M94.0 Chondrocostal junction syndrome [Tietze] (principal); J44.9 Chronic obstructive pulmonary disease, unspecified; F41.9 Anxiety disorder, unspecified; F32.9 Major depressive disorder, single episode, unspecified; K21.9 Gastro-esophageal reflux disease without esophagitis; F17.210 Nicotine dependence, cigarettes, uncomplicated; Z79.899 Other long term (current) drug therapy; Z88.0 Allergy status to penicillin; Z88.7 Allergy status to serum and vaccine; Z88.8 Allergy status to other drugs, medicaments and biological substances; Z88.5 Allergy status to narcotic agent; Z88.6 Allergy status to analgesic agent
CPT/HCPCS: 36415; 71046; 80053; 84484; 85025; 93005; 99285; A9270

== ENCOUNTER 2019-03-12 08:13 | Inpatient (IN) | payer MEDICAID ==
[~2019-03-12 08:13] MED LIST: Bupivacaine 0.5%/EPINEPHrine 1:200,000 50 ML MDV ONE; Meropenem 500 MG SDV ONE
[2019-03-12] MEDS ORDERED: Gabapentin 300 MG Cap PO ONE (08:30)
[2019-03-12] MEDS ORDERED: Dextrose 5%-Lactated Ringers 1,000 ML IV SCH (08:45)
[2019-03-12] MEDS ORDERED: Ketamine 50 MG in Sodium Chloride 0.9% 49.5 ML IV SCH (09:00)
[2019-03-12] MEDS ORDERED: Ketamine 500 MG/5 ML MDV IV SCH (09:00)
[2019-03-12] MEDS ORDERED: Midazolam 1 MG/ML 2 ML SDV ONE (09:24)
[2019-03-12] MEDS ORDERED: fentaNYL 250 MCG/5 ML SDV ONE (09:24)
[2019-03-12] MEDS ORDERED: Neostigmine Methylsulfate 1 MG/ML 5 ML Syringe ONE (09:26)
[2019-03-12] MEDS ORDERED: Glycopyrrolate 0.2 MG/ML 5 ML MDV ONE (09:26)
[2019-03-12] MEDS ORDERED: Dexamethasone 4 MG/ML SDV ONE (09:26)
[2019-03-12] MEDS ORDERED: Propofol 200 MG/20 ML SDV ONE (09:26)
[2019-03-12] MEDS ORDERED: Rocuronium 50 MG/5 ML Vial ONE (09:26)
[2019-03-12] MEDS ORDERED: Ondansetron 4 MG/2 ML SDV ONE (09:26)
[2019-03-12] MEDS: Albuterol/Ipratropium 3.0-0.5 MG/3 ML Neb Soln NEB ONE (09:37)
[2019-03-12] MEDS ORDERED: Clindamycin Phosphate 900 MG in Sodium Chloride 0.9% 100 ML IV ONE (09:45)
[2019-03-12] MEDS ORDERED: fentaNYL 100 MCG/2 ML SDV ONE ×2 (11:10→11:55)
[2019-03-12] MEDS ORDERED: hydrOXYzine HCl 100 MG/2 ML SDV IM ONE (12:07)
[2019-03-12] MEDS ORDERED: HYDROmorphone 0.5 MG/0.5 ML Syringe IVPUSH PRN (13:48)
[2019-03-12] MEDS: HYDROmorphone 1 MG/ML Syringe IV PRN (14:03)
[2019-03-12] MEDS ORDERED: hydrOXYzine HCl 100 MG/2 ML SDV IM PRN (14:06)
[2019-03-12] MEDS ORDERED: Ondansetron 4 MG/2 ML SDV IVPUSH PRN (14:06)
[2019-03-12] MEDS ORDERED: Albuterol 0.083% 2.5 MG/3 ML Neb Soln INH PRN (14:07)
[2019-03-12] MEDS ORDERED: LORazepam 0.5 MG Tab PO PRN (14:13)
[2019-03-12] MEDS ORDERED: Promethazine 25 MG Tab PO PRN (14:13)
[2019-03-12] MEDS ORDERED: Cyclobenzaprine 10 MG Tab PO PRN (14:24)
[2019-03-12] MEDS: Albuterol 0.083% 2.5 MG/3 ML Neb Soln INH SCH ×2 (15:14→21:41)
[2019-03-12] MEDS ORDERED: Pantoprazole 40 MG Vial IV SCH (16:00)
[2019-03-12] MEDS: Dextrose 5%-Lactated Ringers 1,000 ML IV SCH (17:27)
[2019-03-12] MEDS: Clindamycin Phosphate 900 MG in Sodium Chloride 0.9% 100 ML IV SCH (18:08)
[2019-03-12] MEDS ORDERED: Prazosin 1 MG Cap PO SCH (21:00)
[2019-03-12] MEDS: cycloSPORINE Ophth Drops U/D Box of 30 EYEBOTH SCH (21:40)
[2019-03-12] MEDS: Gabapentin 300 MG Cap PO SCH (21:41)
[2019-03-12] MEDS: Ibuprofen 800 MG Tab PO SCH (21:44)
[2019-03-12] MEDS ORDERED: SUMAtriptan 50 MG Tab PO PRN (22:17)
[2019-03-13] MEDS: Clindamycin Phosphate 900 MG in Sodium Chloride 0.9% 100 ML IV SCH (01:40)
[2019-03-13] MEDS: Dextrose 5%-Lactated Ringers 1,000 ML IV SCH ×2 (01:40→05:39)
[2019-03-13] MEDS: HYDROmorphone 1 MG/ML Syringe IV PRN (01:46)
[2019-03-13] MEDS: Ibuprofen 800 MG Tab PO SCH ×3 (05:48→21:31)
[2019-03-13] MEDS: Albuterol 0.083% 2.5 MG/3 ML Neb Soln INH SCH ×4 (07:05→21:38)
[2019-03-13] MEDS ORDERED: Cyclobenzaprine 10 MG Tab PO PRN (07:48)
[2019-03-13] MEDS ORDERED: Albuterol 8 GM Inhaler INH PRN (07:48)
[2019-03-13] MEDS ORDERED: LORazepam 0.5 MG Tab PO PRN (07:48)
[2019-03-13] MEDS ORDERED: Lidocaine 5% 700 MG Patch TOP PRN (07:48)
[2019-03-13] MEDS ORDERED: Ibuprofen 600 MG Tab PO PRN (07:48)
[2019-03-13] MEDS ORDERED: Promethazine 25 MG Tab PO PRN (07:48)
[2019-03-13] MEDS ORDERED: SUMATRIPTAN 25 MG PO PRN (07:48)
[2019-03-13] MEDS ORDERED: Prazosin 1 MG Cap PO PRN (07:48)
[2019-03-13] MEDS: HYDROmorphone 2 MG Tab PO PRN ×3 (08:27→17:33)
[2019-03-13] MEDS: Escitalopram 20 MG Tab PO SCH (08:28)
[2019-03-13] MEDS: Gabapentin 300 MG Cap PO SCH ×3 (08:28→21:29)
[2019-03-13] MEDS: cycloSPORINE Ophth Drops U/D Box of 30 EYEBOTH SCH ×2 (08:30→21:28)
[2019-03-13] MEDS: Docusate Sodium 100 MG Cap PO SCH ×2 (08:33→21:29)
[2019-03-13] MEDS: Acetaminophen 325 MG Tab PO SCH ×3 (08:34→21:30)
[2019-03-13] MEDS: Pantoprazole 40 MG Tab.CR PO SCH (08:34)
[2019-03-13] MEDS ORDERED: Gabapentin 100 MG Cap PO SCH (09:00)
[2019-03-13] MEDS ORDERED: cycloSPORINE Ophth Drops U/D Box of 30 EYEBOTH SCH (09:00)
[2019-03-13] MEDS ORDERED: Magnesium Hydroxide 400 MG/5 ML Susp 30 ML Cup PO ONE (09:00)
[2019-03-13] MEDS ORDERED: Escitalopram 20 MG Tab PO SCH (09:00)
[2019-03-13] MEDS ORDERED: Bisacodyl 5 MG Tab PO ONE (10:00)
--- NOTE | 2019-03-13 10:43 | PN ---
DATE OF SERVICE: 03/13/2019 SUBJECTIVE: Maylin is postoperative day 1. She is sitting up in the chair. She states her pain is controlled. Temperature max 99.6. Oral intake 1360. Urine output is 1935. She did have a headache last evening and has improved today. REVIEW OF SYSTEMS: Remainder of review of systems negative for any pertinent positives and negatives. OBJECTIVE: GENERAL: Maylin Rodarte is a pleasant 58-year-old female. VITAL SIGNS: TPR is 99.6, 102, 18. Blood pressure 105/50. HEENT: Negative. NECK: Supple. HEART: Regular rate and rhythm. LUNGS: Clear. ABDOMEN: Dressings dry and intact. Abdominal binder is on. EXTREMITIES: Without peripheral edema. ASSESSMENT: Laparoscopic incarcerated incisional hernia repair with mesh, open repair of left inguinal hernia with mesh, and inguinal hernia repair for incisional hernia and left inguinal hernia. Date of surgery, 03/12/2019. Surgeon, Lisandro Villarreal MD. PLAN: 1. Change the patient's status to inpatient. 2. Restart home medications. 3. Discontinue Espitia. 4. Dilaudid 2 mg, 2-4 every 4 hours p.r.n. pain. 5. Acetaminophen 650 mg q.6 hours. 6. Milk of Magnesia 30 mL now and give Dulcolax 2 tabs 1 hour later. 7. Colace 100 mg b.i.d. 8. We will evaluate p.r.n. or in a.m. 9. Plan discharge in a.m. Piper Montoya PA-C /[id number]
[2019-03-13] MEDS: Albuterol/Ipratropium 3.0-0.5 MG/3 ML Neb Soln NEB ONE (14:31)
[2019-03-14] MEDS: HYDROmorphone 2 MG Tab PO PRN ×3 (00:35→19:42)
[2019-03-14] MEDS: Acetaminophen 325 MG Tab PO SCH ×5 (02:59→21:25)
[2019-03-14] MEDS: Ibuprofen 800 MG Tab PO SCH ×3 (05:27→21:29)
[2019-03-14] MEDS: Albuterol 0.083% 2.5 MG/3 ML Neb Soln INH SCH ×4 (07:06→21:29)
[2019-03-14] MEDS: Pantoprazole 40 MG Tab.CR PO SCH (07:32)
[2019-03-14] MEDS ORDERED: Magnesium Hydroxide 400 MG/5 ML Susp 30 ML Cup PO ONE (09:00)
[2019-03-14] MEDS: cycloSPORINE Ophth Drops U/D Box of 30 EYEBOTH SCH ×2 (09:10→21:25)
[2019-03-14] MEDS: Docusate Sodium 100 MG Cap PO SCH ×2 (09:11→21:24)
[2019-03-14] MEDS: Escitalopram 20 MG Tab PO SCH (09:11)
[2019-03-14] MEDS: Gabapentin 300 MG Cap PO SCH ×3 (09:11→21:24)
[2019-03-14] MEDS ORDERED: Bisacodyl 5 MG Tab PO ONE (10:00)
--- NOTE | 2019-03-14 10:41 | PN ---
DATE OF SERVICE: 03/14/2019 SUBJECTIVE: Maylin has had a small bowel movement, does not feel like it was adequate. Pain is 6-10, taking Dilaudid, Tylenol, and Motrin. Afebrile. Oral intake 1960, urine output 1450. OBJECTIVE: GENERAL: Maylin Rodarte is a 58-year-old female, alert and orientated. VITAL SIGNS: TPR is 98.6, 95, 16, blood pressure 114/54. O2 is 86 on room air. She was restarted on 2 L, and her oxygen was 92%. HEENT: Negative. NECK: Supple. HEART: Regular rate and rhythm. LUNGS: Clear. ABDOMEN: Dressing dry and intact. Abdominal binder is on. EXTREMITIES: Without peripheral edema. ASSESSMENT: Diagnostic laparoscopy with lysis of adhesions and repair of recurrent incarcerated incisional hernia with mesh and placement of Vicryl mesh and left inguinal exploration and repair of incarcerated left inguinal hernia with mesh and excision of portion of the left ilioinguinal nerve for incarcerated incisional hernia, extensive intraabdominal adhesions, and incarcerated left inguinal hernia, both direct and indirect. Date of surgery, 03/12/2019. Surgeon, Lisandro Villarreal MD. PLAN: Milk of Magnesia 30 mL 1 time; in 1 hour, give Dulcolax 2 tabs. Dressing off, may shower. Saline lock IV. We will evaluate p.r.n. or in a.m. Piper Montoya PA-C /[id number]
[2019-03-14] MEDS ORDERED: Bisacodyl 10 MG Supp RECTAL PRN (20:10)
[2019-03-15] MEDS: Acetaminophen 325 MG Tab PO SCH ×2 (03:41→08:03)
[2019-03-15] MEDS: Ibuprofen 800 MG Tab PO SCH (06:07)
[2019-03-15] MEDS: Albuterol 0.083% 2.5 MG/3 ML Neb Soln INH SCH (07:19)
[2019-03-15] MEDS ORDERED: Ondansetron 4 MG Tab.DIS PO PRN (07:20)
[2019-03-15] MEDS: HYDROmorphone 2 MG Tab PO PRN (08:01)
[2019-03-15] MEDS: Escitalopram 20 MG Tab PO SCH (08:02)
[2019-03-15] MEDS: Pantoprazole 40 MG Tab.CR PO SCH (08:02)
[2019-03-15] MEDS: Docusate Sodium 100 MG Cap PO SCH (08:02)
[2019-03-15] MEDS: cycloSPORINE Ophth Drops U/D Box of 30 EYEBOTH SCH (08:03)
[2019-03-15] MEDS: Gabapentin 300 MG Cap PO SCH (08:03)
[2019-03-15 08:42] VITALS: BP 122/63; PULSE 97
--- NOTE | 2019-03-15 10:39 | DISCH ---
ADMISSION DIAGNOSES: 1. Abdominal hernia. 2. Left inguinal hernia. 3. Fibromyalgia. 4. Tobacco dependence. 5. Chronic obstructive pulmonary disease. 6. Chronic pancreatitis and enlarged liver. DISCHARGE DIAGNOSES: Diagnostic laparoscopy with lysis of adhesions and repair of recurrent incarcerated incisional hernia with mesh and placement of Vicryl mesh and left inguinal exploration and repair of incarcerated left inguinal hernia with mesh and excision of portion of the left ilioinguinal nerve for incarcerated incisional hernia, extensive intraabdominal adhesions and incarcerated left inguinal hernia, both direct and indirect. Date of surgery 03/12/2019. Surgeon, Lisandro Villarreal MD. HISTORY: Maylin Rodarte is a 58-year-old female with recurrent incarcerated incisional hernia and left inguinal hernia. After preoperative evaluation and discussion of possible risks and possible complications, she wished to proceed with surgical procedure. HOSPITAL COURSE: Maylin had her surgery on 03/12/2019. She had no operative complications. On postoperative day #1, some difficulty with pain management and she was changed to oral pain medication, which improved on postoperative day #2. She had not had a bowel movement. She was given bowel stimulation, and on postop day #3, she was able to be discharged to home. Vital signs were stable. She had 3 bowel movements. Pain was managed and activity was good. Oral intake and output were adequate. OBJECTIVE: GENERAL: Maylin is a 58-year-old female. Height 5 feet 5.5 inches, weight is 204 pounds. VITAL SIGNS: TPR is 97.7, 86, 20, blood pressure 104/69. HEENT: Negative. NECK: Supple. HEART: Regular rate and rhythm. LUNGS: Clear. ABDOMEN: Incisions look good. Steri-Strips intact on the left inguinal area. Abdominal binder has been on. EXTREMITIES: Without peripheral edema. DISPOSITION: Discharged to home. CONDITION: Stable and improving. FOLLOWUP: Followup appointment with Lisandro Villarreal MD, on 03/21/2019, at 11 a.m. DISCHARGE MEDICATIONS: Home prescriptions: Dilaudid 2 mg every 6 hours p.r.n. pain #28. She is to resume home medications: Tylenol 500 mg every 6 hours p.r.n. pain, albuterol sulfate one puff every 4 hours p.r.n. shortness of breath, Elavil 50 mg at bedtime, Cleocin 600 mg as directed 1 hour prior to dental procedures, Flexeril 10 mg 3 times a day, vitamin D2 50,000 units use as directed, Lexapro 20 mg oral daily, gabapentin 900 mg 3 times a day, ibuprofen 600 mg every 8 hours, Ativan 0.5 oral every 6 hours, lidocaine 5% one patch daily, omeprazole 20 oral twice daily, prazosin 1 mg at bedtime p.r.n. insomnia, promethazine 25 mg oral every 6 hours p.r.n. nausea, Imitrex 25 mg as directed p.r.n. migraine headaches, Senokot-S 1 tablet daily p.r.n. constipation, Restasis one drop in each eye twice daily. DIET: Usual diet as tolerated, drink 8 to 10 glasses of water a day. ACTIVITY: No lifting greater than 10 pounds for 6 weeks. Other activity: Walk at least 6 times inside your house a day. Driving: Do not drive for 1 week and while on narcotic pain medication. Shower/bathing: May shower. DISCHARGE INSTRUCTIONS: Notify provider if any fever, increased pain, nausea, or vomiting. Keep site clean and dry. Wear abdominal binder over the pressure dressing for 4 weeks and just wear abdominal binder for about 6 weeks. Use incentive spirometer 10 times every hour while awake.
--- NOTE | 2019-03-19 09:40 | OR ---
DATE OF PROCEDURE: 03/12/2019 SURGEON: Lisandro Villarreal MD PREOPERATIVE DIAGNOSES: 1. Incisional hernia. 2. Incarcerated left inguinal hernia. POSTOPERATIVE DIAGNOSES: 1. Incarcerated incisional hernia. 2. Extensive intraabdominal adhesions. 3. Incarcerated left inguinal hernia. OPERATIVE PROCEDURE: 1. Diagnostic laparoscopy with extensive lysis of adhesions and: a. Repair of recurrent incarcerated incisional hernia with mesh (90956). b. Placement of Vicryl mesh to displace pelvic and abdominal wall from underlying viscera to limit recurrent adhesion formation ([id number]). 2. Left inguinal exploration with: a. Repair of combined indirect and direct left inguinal hernia with mesh ([id number]). b. Excision of portion of left ilioinguinal nerve ([id number]). ANESTHESIA: General. DEFECT REPAIRER GLASSWARE: Piper Montoya PA-C. INDICATIONS FOR PROCEDURE: The patient presents with 2 hernias, 1 is an area of recurrent incisional hernia located in the right upper quadrant adjacent to previous mesh repair. The patient also has a left inguinal hernia, which is quite painful and not entirely reducible at this point. Plan is to proceed with a diagnostic laparoscopy with a laparoscopic or if necessary open repair of the incisional hernia and then an open repair of left inguinal hernia with mesh plug technique. Potential risks of the procedure including bleeding, infection, recurrence of the hernias, problems with chronic pain or mesh infection following the hernias were all reviewed, along with the remote possibility of cardiopulmonary, septic, or hemorrhagic complications leading to were gone over, and the patient wishes to proceed. DETAILS OF PROCEDURE: The patient was taken to the operating room and placed in a supine position. After general endotracheal anesthesia was induced, a Espitia catheter was inserted and the abdomen and groin areas prepped and draped. Additionally, in the left lateral abdomen, a transverse incision was made and peritoneal cavity entered under direct vision with an Optiview trocar. Following this, the peritoneal cavity was inflated to 15 mmHg pressure with CO2, and the laparoscope was reinserted. No underlying trocar insertion site injuries were seen. The patient had some previous mesh placed in the central abdomen and was noted to have extensive omental adhesions to this. Initially, a 5-mm trocar was placed in the left upper quadrant and these adhesions were then taken down with Harmonic scalpel. There was no bowel adherence to the underlying mesh. Once all these adhesions were taken down, the area was inspected and the patient was noted to have a vague concavity-type hernia in the right upper quadrant more or less adjacent to the previous mesh repair. This included some incarcerated component with some omentum adherent into that area of herniation as well, which had been at that point taken down. At this point with the area being satisfactorily cleared, a Ventralight hernia mesh with a circular configuration and a diameter of 20.3 cm was soaked in antibiotic-containing saline solution. A stab wound over the skin centered over the area of the herniation in the right upper quadrant was then made and the mesh was placed in intraperitoneal location. The mesh was then oriented such that the polypropylene side of the mesh faced the abdominal wall and the inflation catheter pulled up through the stab wound in the abdominal wall and the balloon inflated, thus pulling the mesh up against the abdominal wall. Mesh was then affixed circumferentially with 2 layers of absorbable tacking screws. The balloon was then deflated and withdrawn, and good fixation of the mesh circumferentially was noted. Of note, an additional 5-mm trocar at that point had been placed, and at this point to limit recurrent adhesion formation, a 12-cm area of mesh was then placed underneath both the old mesh and the new mesh and from there down toward the pelvis to limit recurrent adhesion formation between those surfaces and the underlying viscera. The peritoneal cavity was then deflated. The fascia at the 12-mm site was closed with 0 Vicryl stitch and skin with 4-0 Vicryl skin stitch. Attention was then taken to the inguinal hernia, and a standard left inguinal hernia incision was made and carried down through the skin and subcutaneous tissue. The external oblique aponeurosis in line with the external ring was then divided. Subaponeurotic flaps were then raised superiorly and inferiorly. A portion of the left ilioinguinal nerve was then excised out to the far lateral aspect of the incision to limit recurrent neuropathic pain, and the inguinal floor and surrounding areas were examined. The patient was noted to have a fairly large indirect hernia, which contained some incarcerated omentum, and a somewhat smaller direct hernia, which also contained some incarcerated preperitoneal fat. Additionally, the transversalis fascia over the direct hernia site was incised, and dissection continued on the conjoint tendon circumferentially down to the pubic tubercle. An extra large mesh plug was then placed into that defect and then this was affixed to the Sachin's ligament initially with some titanium tacking screws, to the underside of the conjoint tendon medially, superiorly, and laterally with horizontal mattress sutures of 0 Vicryl stitch. The indirect hernia was then also dissected free and satisfactorily reduced and the mesh plug was placed into that defect and this was affixed medially to the edge of the previously placed mesh with sutures going underneath the inferior epigastric vessels and the overlying conjoint tendon, and then some additional sutures placed between the conjoint tendon superiorly and laterally, and then some stitches placed carefully very superficially to the shelving portion of the inguinal ligament to the mesh. The sutures were placed very superficially to avoid entrapment of any nerves underlying that area, all of this with 0 Vicryl horizontal mattress sutures. Following this, the flat portion of the mesh-plug system was affixed to the pubic tubercle medially and then the inguinal floor as well with titanium tacking screws. External oblique aponeurosis was then approximated with some 0 Vicryl stitch and the subcutaneous tissue approximated with 2 layers of 3-0 and 4-0 Vicryl stitch deep and the skin with a 4-0 Vicryl subcuticular stitch. The inguinal floor of the left inguinal hernia site was anesthetized with 0.5% Marcaine mixed with lidocaine and the trocar sites used for laparoscopic phase were also incised with the same solution. Prior to closure of the laparoscopic phase, bilateral transversus abdominis plane blocks had also been placed. The patient was taken to the recovery room in satisfactory condition. Physician child life assistant, Piper Montoya played an essential role in assisting in this case, helping to position the patient, retract structures as needed, as well as suturing and cutting sutures when indicated. Her presence improved patient safety and decreased the operative time. Lisandro Villarreal MD Job #: [id number]
== END 2019-03-15 09:23 | disposition home or self-care (01) | DRG 336 ==
LOC: JP.SDS 08:13 → JP.MS 11:45 → JP.SDS 03-13 07:52 → JP.MS 03-13 12:50
PROVIDERS: ADMIT Surgery; ATTEND Surgery
PROC: 0DNU4ZZ Release Omentum, Percutaneous Endoscopic Approach (ICD-10-PCS; principal; 2019-03-13)
PROC: 0WUF4JZ Supplement Abdominal Wall with Synthetic Substitute, Percutaneous Endoscopic Approach (ICD-10-PCS; 2019-03-13)
PROC: 0YU60JZ Supplement Left Inguinal Region with Synthetic Substitute, Open Approach (ICD-10-PCS; 2019-03-13)
PROC: 01BB0ZZ Excision of Lumbar Nerve, Open Approach (ICD-10-PCS; 2019-03-13)
PROC: 3E0M45Z Introduction of Adhesion Barrier into Peritoneal Cavity, Percutaneous Endoscopic Approach (ICD-10-PCS; 2019-03-13)
DX: K40.30 Unilateral inguinal hernia, with obstruction, without gangrene, not specified as recurrent (principal); K43.0 Incisional hernia with obstruction, without gangrene; K86.1 Other chronic pancreatitis; M79.7 Fibromyalgia; J44.9 Chronic obstructive pulmonary disease, unspecified; K66.0 Peritoneal adhesions (postprocedural) (postinfection); R16.0 Hepatomegaly, not elsewhere classified; E66.9 Obesity, unspecified; G60.9 Hereditary and idiopathic neuropathy, unspecified; G43.909 Migraine, unspecified, not intractable, without status migrainosus; F32.9 Major depressive disorder, single episode, unspecified; M17.11 Unilateral primary osteoarthritis, right knee; G47.00 Insomnia, unspecified; F17.210 Nicotine dependence, cigarettes, uncomplicated; G45.4 Transient global amnesia; K21.9 Gastro-esophageal reflux disease without esophagitis; M70.62 Trochanteric bursitis, left hip; Z79.899 Other long term (current) drug therapy; Z79.51 Long term (current) use of inhaled steroids; Z96.652 Presence of left artificial knee joint; Z90.49 Acquired absence of other specified parts of digestive tract; Z88.6 Allergy status to analgesic agent; Z88.8 Allergy status to other drugs, medicaments and biological substances; Z88.1 Allergy status to other antibiotic agents; Z88.7 Allergy status to serum and vaccine; Z88.0 Allergy status to penicillin; Z68.33 Body mass index [BMI] 33.0-33.9, adult
CPT/HCPCS: 88302; 88304; 93005; 94640; 94762; A9270-GY; C1713; C1781; C9113; J0171; J1100; J1170; J2020; J2185; J2250; J2405; J2704; J2710; J2795; J3010; J3410; J3490; J7030; J7042; J7050; J7620-GY

== ENCOUNTER 2019-03-23 09:58 | Inpatient (IN) | payer MEDICAID ==
[2019-03-23] MEDS ORDERED: Ondansetron 4 MG/2 ML SDV IVPUSH ONE (10:50)
[2019-03-23] MEDS ORDERED: fentaNYL 100 MCG/2 ML SDV IVPUSH ONE ×2 (10:50→14:03)
--- NOTE | 2019-03-23 10:54 | EDM.PDOC ---
ED HPI GENERAL MEDICAL PROBLEM - General Chief Complaint: Back Pain or Injury Stated Complaint: POST-OP BACK PAIN Time Seen by Provider: 03/23/19 10:33 Source of Information: Reports: Patient, Family, RN Notes Reviewed History Limitations: Reports: No Limitations - History of Present Illness INITIAL COMMENTS - FREE TEXT/NARRATIVE: 58-year-old female presents emergency department with a complaint of abdominal pain and distention, she is postop day 10 hernia repair states she is doing well last use pain medication 5 days ago however over the last 12 hours had increasing pain and distention with back pain predominantly on the right side right flank area. She does feel nauseated bowel movements have been limited no fever Right Abdomen Pain Score (Numeric/FACES): 10 - Related Data Allergies Allergy/AdvReac Type Severity Reaction Status Date / Time Penicillins Allergy Intermediate Airway Verified 02/09/19 15:43 Tightness cortisone [Cortisone] Allergy Itching Verified 02/09/19 15:43 fluoxetine HCl [From Prozac] Allergy Excitabilit Verified 03/12/19 08:54 y Influenza Virus Vaccines Allergy Cannot Verified 02/09/19 15:43 Remember levofloxacin [From Levaquin] Allergy Cannot Verified 02/09/19 15:43 Remember tiotropium bromide Allergy Difficulty Verified 03/12/19 08:54 [From Spiriva with Breathing HandiHaler] aspirin AdvReac Nausea Verified 02/09/19 15:43 bupropion HCl AdvReac Tremors Verified 02/09/19 15:43 [From Wellbutrin] codeine AdvReac Vomiting Verified 02/09/19 15:43 duloxetine HCl AdvReac Hallucinati Verified 02/09/19 15:43 [From Cymbalta] ons Home Meds: Home Meds LORazepam [Ativan] 0.5 mg PO Q6H PRN 01/05/13 [History] Prazosin HCl [Prazosin] 1 mg PO BEDTIME PRN 05/01/14 [History] Acetaminophen [Tylenol Extra Strength] 500 mg PO Q6H PRN 08/01/14 [History] Gabapentin [Neurontin] 900 mg PO TID 08/01/14 [History] Lidocaine 5% [Lidoderm 5%] 1 patch TOP DAILY PRN 08/01/14 [History] Albuterol Sulfate [Proair Hfa] 1 puff IH Q4H PRN 09/04/14 [History] Omeprazole [Prilosec] 20 mg PO BID 09/04/14 [History] Escitalopram [Lexapro] 20 mg PO DAILY 12/19/18 [History] Cyclobenzaprine [Flexeril] 10 mg PO TID PRN 02/09/19 [History] Amitriptyline [Elavil] 50 mg PO BEDTIME 03/08/19 [History] Ergocalciferol (Vitamin D2) [Vitamin D2] 50,000 unit PO .WEEKLY 03/08/19 [ History] Ibuprofen 600 mg PO Q8HR PRN 03/08/19 [History] Promethazine [Phenergan] 25 mg PO Q6H PRN 03/08/19 [History] SUMAtriptan [Imitrex] 25 mg PO ASDIRECTED PRN 03/08/19 [History] Sennosides/Docusate Sodium [Senna-Docusate Sodium Tablet] 1 each PO DAILY PRN [History] cycloSPORINE [Restasis] 1 each EYEBOTH BID 03/08/19 [History] Clindamycin HCl [Cleocin] 600 mg PO ASDIRECTED PRN 03/12/19 [History] Past Medical History HEENT History: Reports: Impaired Vision Other HEENT History: Dry eyes Respiratory History: Reports: COPD, Pneumonia, Recurrent Gastrointestinal History: Reports: Cholelithiasis, GERD Genitourinary History: Reports: Pyelonephritis [employer] 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 autoimmune disease as child Dermatologic History: Reports: Other (See Below) Other Dermatologic History: scabies - Infectious Disease History Infectious Disease History: Reports: Chicken Pox - Past Surgical History GI Surgical History: Reports: Appendectomy, Cholecystectomy, Colonoscopy, EGD, Hernia Repair/Other, Other (See Below) Other GI Surgeries/Procedures: fatty tumor removed Female Surgical History: Reports: Breast Biopsy, Hysterectomy, Salpingo- Oophorectomy Musculoskeletal Surgical History: Reports: Arthroscopic Procedure, Knee Replacement, Shoulder Surgery, Other (See Below) Other Musculoskeletal Surgeries/Procedures:: Left knee replacement 10/13/16, hand surgery (tumor removed) Social & Family History - Family History Family Medical History: Unobtainable - Tobacco Use Second Hand Smoke Exposure: Yes - Caffeine Use Caffeine Use: Reports: Coffee - Recreational Drug Use Recreational Drug Use: Yes Recreational Drug Type: Reports: Marijuana/Hashish Other Recreational Drug Type: last use prior to surgery ED ROS GENERAL - Review of Systems Review Of Systems: See Below Constitutional: Reports: No Symptoms HEENT: Reports: No Symptoms Respiratory: Reports: No Symptoms Cardiovascular: Reports: No Symptoms GI/Abdominal: Reports: Abdominal Pain, Constipation, Nausea. Denies: Vomiting : Reports: No Symptoms Musculoskeletal: Reports: Back Pain Skin: Reports: No Symptoms ED EXAM, GI/ABD - Physical Exam Exam: See Below Exam Limited By: No Limitations General Appearance: Alert, WD/WN, No Apparent Distress Respiratory/Chest: No Respiratory Distress, Lungs Clear, Normal Breath Sounds, No Accessory Muscle Use, Chest Non-Tender Cardiovascular: Regular Rate, Rhythm, No Murmur GI/Abdominal Exam: Soft, Distended, Guarding, Tender (Generalized) Back Exam: Normal Inspection, CVA Tenderness (R). No: Muscle Spasm, Paraspinal Tenderness Course - Vital Signs Last Recorded V/S: Last Vital Signs Temp 96.7 F 03/23/19 10:14 Pulse 72 03/23/19 10:14 Resp 16 03/23/19 10:14 BP 153/80 H 03/23/19 10:14 Pulse Ox 98 03/23/19 10:14 - Orders/Labs/Meds Orders: Active Orders 24 hr Category Date Time Status Peripheral IV Care [RC] . DIRECTED Care 03/23/19 10:49 Active Iopamidol [Isovue-300 (61%)] Med 03/23/19 11:30 Active 136 ml IV . DIRECTED Lactated Ringers [Ringers, Lactated] 1,000 ml Med 03/23/19 11:00 Active IV ASDIRECTED Lactated Ringers [Ringers, Lactated] 1,000 ml Med 03/23/19 12:48 Active IV BOLUS Sodium Chloride 0.9% [Normal Saline] 81 ml Med 03/23/19 11:30 Active IV ASDIRECTED Sodium Chloride 0.9% [Saline Flush] Med 03/23/19 10:49 Active 10 ml FLUSH ASDIRECTED PRN cefTAZidime Pentahydrate [Fortaz] 1 gm Med 03/23/19 13:44 Active Sodium Chloride 0.9% [Normal Saline] 50 ml IV ONETIME Peripheral IV Insertion Adult [OM.PC] Urgent Oth 03/23/19 10:49 Ordered Medication Orders Lactated Ringer's (Ringers, Lactated) 1,000 mls @ 999 mls/hr IV ASDIRECTED ISABEL Last Admin: 03/23/19 11:33 Dose: 999 mls/hr Sodium Chloride (Normal Saline) 81 mls @ 3 mls/sec IV ASDIRECTED ISABEL Stop: 03/23/19 14:00 Last Admin: 03/23/19 11:55 Dose: 3 mls/sec Lactated Ringer's (Ringers, Lactated) 1,000 mls @ 250 mls/hr IV BOLUS ONE Stop: 03/23/19 16:47 Last Admin: 03/23/19 12:53 Dose: 250 mls/hr Ceftazidime 1 gm/ Sodium (Chloride) 50 mls @ 100 mls/hr IV ONETIME ONE Stop: 03/23/19 14:13 Iopamidol (Isovue-300 (61%)) 136 ml IV . DIRECTED ISABEL Stop: 03/23/19 14:00 Last Admin: 03/23/19 11:55 Dose: 123 ml Sodium Chloride (Saline Flush) 10 ml FLUSH ASDIRECTED PRN PRN Reason: Keep Vein Open Last Admin: 03/23/19 11:57 Dose: 10 ml Labs: Laboratory Tests 03/23/19 03/23/19 03/23/19 Range/Units 11:10 11:10 11:10 WBC 9.2 (4.5-11.0) K/uL RBC 3.91 (3.30-5.50) M/uL Hgb 12.2 (12.0-15.0) g/dL Hct 36.2 (36.0-48.0) % MCV 93 (80-98) fL MCH 31 (27-31) pg MCHC 34 (32-36) % Plt Count 528 H (150-400) K/uL Neut % (Auto) 71 H (36-66) % Lymph % (Auto) 18 L (24-44) % Camp % (Auto) 5 (2-6) % Eos % (Auto) 5 H (2-4) % Baso % (Auto) 1 (0-1) % Sodium 138 L (140-148) mmol/L Potassium 3.8 (3.6-5.2) mmol/L Chloride 100 (100-108) mmol/L Carbon Dioxide 24 (21-32) mmol/L Anion Gap 17.8 H (5.0-14.0) mmol/L BUN 7 D (7-18) mg/dL Creatinine 0.8 (0.6-1.0) mg/dL Est Cr Clr Drug Dosing 68.97 mL/min Estimated GFR (MDRD) > 60 (>60) Glucose 98 (74-106) mg/dL Lactic Acid 2.2 H (0.4-2.0) mmol/L Calcium 9.5 (8.5-10.1) mg/dL Total Bilirubin 0.2 (0.2-1.0) mg/dL AST 14 L (15-37) U/L ALT 21 (12-78) U/L Alkaline Phosphatase 227 H (46-116) U/L Total Protein 8.5 H (6.4-8.2) g/dL Albumin 3.1 L (3.4-5.0) g/dL Globulin 5.4 H (2.3-3.5) g/dL Albumin/Globulin Ratio 0.6 L (1.2-2.2) Lipase 42 L (73-393) U/L Urine Color (YELLOW) Urine Appearance (CLEAR) Urine pH (5.0-8.0) Ur Specific [place] (1.008-1.030) Urine Protein (NEGATIVE) mg/dL Urine Glucose (UA) (NEGATIVE) mg/dL Urine Ketones (NEGATIVE) mg/dL Urine Occult Blood (NEGATIVE) Urine Nitrite (NEGATIVE) Urine Bilirubin (NEGATIVE) Urine Urobilinogen (0.2-1.0) EU/dL Ur Leukocyte Esterase (NEGATIVE) Urine RBC (0-5) Urine WBC (0-5) Ur Epithelial Cells Amorphous Sediment Urine Bacteria Urine Mucus 03/23/19 Range/Units 13:06 WBC (4.5-11.0) K/uL RBC (3.30-5.50) M/uL Hgb (12.0-15.0) g/dL Hct (36.0-48.0) % MCV (80-98) fL MCH (27-31) pg MCHC (32-36) % Plt Count (150-400) K/uL Neut % (Auto) (36-66) % Lymph % (Auto) (24-44) % Camp % (Auto) (2-6) % Eos % (Auto) (2-4) % Baso % (Auto) (0-1) % Sodium (140-148) mmol/L Potassium (3.6-5.2) mmol/L Chloride (100-108) mmol/L Carbon Dioxide (21-32) mmol/L Anion Gap (5.0-14.0) mmol/L BUN (7-18) mg/dL Creatinine (0.6-1.0) mg/dL Est Cr Clr Drug Dosing mL/min Estimated GFR (MDRD) (>60) Glucose (74-106) mg/dL Lactic Acid (0.4-2.0) mmol/L Calcium (8.5-10.1) mg/dL Total Bilirubin (0.2-1.0) mg/dL AST (15-37) U/L ALT (12-78) U/L Alkaline Phosphatase (46-116) U/L Total Protein (6.4-8.2) g/dL Albumin (3.4-5.0) g/dL Globulin (2.3-3.5) g/dL Albumin/Globulin Ratio (1.2-2.2) Lipase (73-393) U/L Urine Color Yellow (YELLOW) Urine Appearance Slightly cloudy A (CLEAR) Urine pH 8.5 H (5.0-8.0) Ur Specific [place] 1.015 (1.008-1.030) Urine Protein Negative (NEGATIVE) mg/dL Urine Glucose (UA) Negative (NEGATIVE) mg/dL Urine Ketones Trace H (NEGATIVE) mg/dL Urine Occult Blood Negative (NEGATIVE) Urine Nitrite Negative (NEGATIVE) Urine Bilirubin Negative (NEGATIVE) Urine Urobilinogen 0.2 (0.2-1.0) EU/dL Ur Leukocyte Esterase Negative (NEGATIVE) Urine RBC 0-5 (0-5) Urine WBC Not seen (0-5) Ur Epithelial Cells Rare Amorphous Sediment Rare Urine Bacteria Not seen Urine Mucus Not seen Meds: Medications Generic Name Dose Route Start Last Admin Trade Name Rafael PRN Reason Stop Dose Admin Lactated Ringer's 1,000 mls @ 999 mls/hr 03/23/19 11:00 03/23/19 11:33 Ringers, Lactated IV 999 mls/hr ASDIRECTED ISABEL Administration Sodium Chloride 81 mls @ 3 mls/sec 03/23/19 11:30 03/23/19 11:55 Normal Saline IV 03/23/19 14:00 3 mls/sec ASDIRECTED ISABEL Administration Lactated Ringer's 1,000 mls @ 250 mls/hr 03/23/19 12:48 03/23/19 12:53 Ringers, Lactated IV 03/23/19 16:47 250 mls/hr BOLUS ONE Administration Ceftazidime 1 gm/ Sodium 50 mls @ 100 mls/hr 03/23/19 13:44 Chloride IV 03/23/19 14:13 ONETIME ONE Iopamidol 136 ml 03/23/19 11:30 03/23/19 11:55 Isovue-300 (61%) IV 03/23/19 14:00 123 ml . DIRECTED ISABEL Administration Sodium Chloride 10 ml 03/23/19 10:49 03/23/19 11:57 Saline Flush FLUSH 10 ml ASDIRECTED PRN Administration Keep Vein Open Discontinued Medications Generic Name Dose Route Start Last Admin Trade Name Rafael PRN Reason Stop Dose Admin Fentanyl 50 mcg 03/23/19 10:50 03/23/19 11:33 Sublimaze IVPUSH 03/23/19 10:51 50 mcg ONETIME ONE Administration Ondansetron HCl 4 mg 03/23/19 10:50 03/23/19 11:33 Zofran IVPUSH 03/23/19 10:51 4 mg ONETIME ONE Administration Sodium Chloride 10 ml 03/23/19 11:16 03/23/19 11:33 Saline Flush FLUSH 03/23/19 11:17 10 ml ONETIME ONE Administration Departure - Departure Time of Disposition: 13:54 Disposition: Admitted As Inpatient 66 Condition: Fair Clinical Impression: Intra-abdominal infection - Discharge Information Referrals: Jose Maria Mitchell MD [Primary Care Provider] - Forms: ED Department Discharge - My Orders Last 24 Hours: My Active Orders 03/23/19 10:49 Peripheral IV Care [RC] . DIRECTED Sodium Chloride 0.9% [Saline Flush] 10 ml FLUSH ASDIRECTED PRN Peripheral IV Insertion Adult [OM.PC] Urgent 03/23/19 11:00 Lactated Ringers [Ringers, Lactated] 1,000 ml IV ASDIRECTED 03/23/19 11:30 Iopamidol [Isovue-300 (61%)] 136 ml IV . DIRECTED Sodium Chloride 0.9% [Normal Saline] 81 ml IV ASDIRECTED 03/23/19 12:48 Lactated Ringers [Ringers, Lactated] 1,000 ml IV BOLUS 03/23/19 13:44 cefTAZidime Pentahydrate [Fortaz] 1 gm Sodium Chloride 0.9% [Normal Saline] 50 ml IV ONETIME - Assessment/Plan Last 24 Hours: My Active Orders 03/23/19 10:49 Peripheral IV Care [RC] . DIRECTED Sodium Chloride 0.9% [Saline Flush] 10 ml FLUSH ASDIRECTED PRN Peripheral IV Insertion Adult [OM.PC] Urgent 03/23/19 11:00 Lactated Ringers [Ringers, Lactated] 1,000 ml IV ASDIRECTED 03/23/19 11:30 Iopamidol [Isovue-300 (61%)] 136 ml IV . DIRECTED Sodium Chloride 0.9% [Normal Saline] 81 ml IV ASDIRECTED 03/23/19 12:48 Lactated Ringers [Ringers, Lactated] 1,000 ml IV BOLUS 03/23/19 13:44 cefTAZidime Pentahydrate [Fortaz] 1 gm Sodium Chloride 0.9% [Normal Saline] 50 ml IV ONETIME Plan: Assessment Acuity = acute Site and laterality = intra-abdominal infection Etiology = unknown Manifestations = pain Location of injury = Home Lab values = CBC, CMP, lipase, urinalysis unremarkable CT scan describes postsurgical changes there is a 6.4 irregular structure low attenuation with gas concern for abscess also the possibility of early sigmoid diverticulitis Plan Discussed case Dr. Villarreal at 1345 recommend admission by hospitalist service discussed case with Dr. Gonzalez at 1400 he kindly agreed to come and evaluate the patient emergency department for admission antibiotics of ceftazdine. This note was dictated using [employer] voice recognition software please call with any questions on syntax or grammar.
[2019-03-23] MEDS ORDERED: Lactated Ringers 1,000 ML IV SCH (11:00)
[2019-03-23] MEDS ORDERED: Sodium Chloride 0.9% 10 ML Syringe FLUSH ONE (11:16)
[2019-03-23] MEDS ORDERED: Iopamidol 612 MG/ML 150 ML Bottle IV SCH (11:30)
[2019-03-23] MEDS: Sodium Chloride 0.9% 10 ML Syringe FLUSH PRN (11:57)
[2019-03-23] MEDS ORDERED: Lactated Ringers 1,000 ML IV ONE (12:48)
--- NOTE | 2019-03-23 13:24 | CRLCT ---
INDICATION: Abdominal pain TECHNIQUE: CT abdomen and pelvis acquired with IV contrast. 136 mL of Isovue 300 administered. COMPARISON: 03/30/2018 FINDINGS: Lower chest: Mild subsegmental atelectasis. Calcified right lower lobe granuloma. Liver: A small low density focus in the lateral segment of the left hepatic lobe on image 55 which is too small to characterize and may be related to volume-averaging. Spleen: Unremarkable. Pancreas: Unremarkable. Gallbladder and bile ducts: Cholecystectomy. Adrenal glands: Unremarkable. Kidneys: Mild right renal pelviectasis without hydroureter. A subcentimeter left renal lower pole low-density lesion, too small to characterize, statistically a cyst.. GI tract: Mild gastric antral wall prominence versus underdistention. No mechanical bowel obstruction. The appendix is not seen with probable post appendectomy changes. Wall thickening of a segment of the distal ascending colon and hepatic flexure, with mild adjacent stranding, consistent with nonspecific segmental colitis. Mild wall thickening in portions of the transverse and descending colon are at least partially related to under distention. Few colonic diverticula with mild focal stranding adjacent to a posterior diverticulum consistent with mild, early or resolving diverticulitis. Vascular structures: Atherosclerotic changes Lymph nodes: Unremarkable. Miscellaneous: A surgical mesh underlying the anterior right abdominal wall with small adjacent fluid and edema and mild focal stranding in the underlying right abdominal omental fat. An additional mesh like curvilinear density underlying the lower abdominal wall was seen on the prior study. Postsurgical changes in the left inguinal region with an irregular lobulated structure/collection of low attenuation and gas in the anterior left pelvis near the left inguinal canal orifice, measuring up to 6.4 x 3.8 x 5.4 cm. Fluid and edema in the overlying left lower pelvic subcutaneous fat. Small fluid in the posterior pelvis. Pelvic Organs: Post partial hysterectomy changes again seen. Mild anterior bladder wall thickening could be related to incomplete distention. Bones: Unremarkable for age. IMPRESSION: Postsurgical changes in the abdomen and left inguinal region. A 6.4 cm irregular structure/collection of low attenuation and gas in the anterior left pelvis near the left inguinal canal orifice compatible with an abscess, somewhat atypical in configuration. Correlate clinically and with the surgical history to exclude the possibility of retained surgical material. A surgical mesh underlying the anterior right abdominal wall with adjacent edema and small fluid. Segmental colitis involving the distal ascending colon and hepatic flexure. Mild colitis involving segments of the transverse and descending colon is not excluded. Mild, early or resolving sigmoid diverticulitis. The findings were discussed with Dr. Officer, by phone, on 03/23/2019 at 1:20 p.m.. Dictated by Skyler Sevilla MD @ 03/23/2019 1:23:50 PM Please note that all CT scans at this facility use dose modulation, iterative reconstruction, and/or weight-based dosing when appropriate to reduce radiation dose to as low as reasonably achievable. Dictated by: Skyler Sevilla MD @ 03/23/2019 13:23:57 (Electronically Signed)
--- NOTE | 2019-03-23 15:02 | PCM.HP.2 ---
H&P History of Present Illness - General Date of Service: 03/23/19 Admit Problem/Dx: Admission Diagnosis/Problem Admission Diagnosis/Problem Abscess of pelvis Source of Information: Patient, Provider History Limitations: Reports: No Limitations - History of Present Illness Initial Comments - Free Text/Narative: CC: My side hurts HPI: Maylin presents to the emergency room today with 2 days of progressive abdominal pain which is mostly right upper quadrant and right flank in nature. She describes onset of initially mild to moderate achy pain in her back that radiated to the right flank in front of her right abdomen. This has progressed over the past 12+ hours to be moderately severe in nature. No obvious triggers to make the pain worse and it seems to come and go in waves. She has tried acetaminophen as well as a pain pill without much relief in the pain. Pain has been steadily getting worse. She has some nausea but no vomiting. She is had subjective fevers and chills but when she took her temperature it was normal. Bowel movements have been small and hard. She has not had any diarrhea. She felt short of breath this morning because her pain was so bad but has not had any chest pain and does not feel short of breath now. No change in bladder habits. She had a hernia repair about a week and a half ago but that pain had been steadily improving. Appetite has been decreased the past 2 days and she has had very little to eat or drink. No sick contacts or travel. Work-up in the emergency room included fairly normal laboratory studies. CT scan of the abdomen and pelvis showed a 6 cm fluid collection with gas consistent with an abscess in the left pelvis area near the inguinal canal opening. CT scan also showed possible colitis around the splenic flexure with bowel wall thickening. There was also one very small area around a diverticulum that had some stranding. No obvious perforations or microperforations. Antibiotics have been initiated she will be admitted for management of a left pelvic abscess plus or minus very mild diverticulitis. Right Abdomen Pain Score (Numeric/FACES): 10 - Related Data Allergies/Adverse Reactions: Allergies Allergy/AdvReac Type Severity Reaction Status Date / Time Penicillins Allergy Intermediate Airway Verified 02/09/19 15:43 Tightness cortisone [Cortisone] Allergy Itching Verified 02/09/19 15:43 fluoxetine HCl [From Prozac] Allergy Excitabilit Verified 03/12/19 08:54 y Influenza Virus Vaccines Allergy Cannot Verified 02/09/19 15:43 Remember levofloxacin [From Levaquin] Allergy Cannot Verified 02/09/19 15:43 Remember tiotropium bromide Allergy Difficulty Verified 03/12/19 08:54 [From Spiriva with Breathing HandiHaler] aspirin AdvReac Nausea Verified 02/09/19 15:43 bupropion HCl AdvReac Tremors Verified 02/09/19 15:43 [From Wellbutrin] codeine AdvReac Vomiting Verified 02/09/19 15:43 duloxetine HCl AdvReac Hallucinati Verified 02/09/19 15:43 [From Cymbalta] ons Home Medications: Home Meds LORazepam [Ativan] 0.5 mg PO Q6H PRN 01/05/13 [History] Prazosin HCl [Prazosin] 1 mg PO BEDTIME PRN 05/01/14 [History] Acetaminophen [Tylenol Extra Strength] 500 mg PO Q6H PRN 08/01/14 [History] Gabapentin [Neurontin] 900 mg PO TID 08/01/14 [History] Lidocaine 5% [Lidoderm 5%] 1 patch TOP DAILY PRN 08/01/14 [History] Albuterol Sulfate [Proair Hfa] 1 puff IH Q4H PRN 09/04/14 [History] Omeprazole [Prilosec] 20 mg PO BID 09/04/14 [History] Escitalopram [Lexapro] 20 mg PO DAILY 12/19/18 [History] Cyclobenzaprine [Flexeril] 10 mg PO TID PRN 02/09/19 [History] Amitriptyline [Elavil] 50 mg PO BEDTIME 03/08/19 [History] Ergocalciferol (Vitamin D2) [Vitamin D2] 50,000 unit PO .WEEKLY 03/08/19 [ History] Ibuprofen 600 mg PO Q8HR PRN 03/08/19 [History] Promethazine [Phenergan] 25 mg PO Q6H PRN 03/08/19 [History] SUMAtriptan [Imitrex] 25 mg PO ASDIRECTED PRN 03/08/19 [History] Sennosides/Docusate Sodium [Senna-Docusate Sodium Tablet] 1 each PO DAILY PRN [History] cycloSPORINE [Restasis] 1 each EYEBOTH BID 03/08/19 [History] Clindamycin HCl [Cleocin] 600 mg PO ASDIRECTED PRN 03/12/19 [History] Past Medical History HEENT History: Reports: Impaired Vision Other HEENT History: Dry eyes Respiratory History: Reports: COPD, Pneumonia, Recurrent Gastrointestinal History: Reports: Cholelithiasis, GERD Genitourinary History: Reports: Pyelonephritis 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 autoimmune disease as child Dermatologic History: Reports: Other (See Below) Other Dermatologic History: scabies - Infectious Disease History Infectious Disease History: Reports: Chicken Pox - Past Surgical History GI Surgical History: Reports: Appendectomy, Cholecystectomy, Colonoscopy, EGD, Hernia Repair/Other, Other (See Below) Other GI Surgeries/Procedures: fatty tumor removed Female Surgical History: Reports: Breast Biopsy, Hysterectomy, Salpingo- Oophorectomy Musculoskeletal Surgical History: Reports: Arthroscopic Procedure, Knee Replacement, Shoulder Surgery, Other (See Below) Other Musculoskeletal Surgeries/Procedures:: Left knee replacement 10/13/16, hand surgery (tumor removed) Social & Family History - Family History Family Medical History: Unobtainable - Tobacco Use Second Hand Smoke Exposure: Yes - Caffeine Use Caffeine Use: Reports: Coffee - Alcohol Use Alcohol Use History: No - Recreational Drug Use Recreational Drug Use: Yes Recreational Drug Type: Reports: Marijuana/Hashish Other Recreational Drug Type: last use prior to surgery H&P Review of Systems - Review of Systems: Review Of Systems: See Below Free Text/Narrative: A complete 12 point review of systems was obtained. Pertinent positives and negatives are noted in the history of present illness. All other systems were reviewed and were negative except as noted. Exam - Exam Exam: See Below - Vital Signs Vital Signs: Last Vital Signs Temp 35.9 C 03/23/19 10:14 Pulse 72 03/23/19 10:14 Resp 16 03/23/19 10:14 BP 153/80 H 03/23/19 10:14 Pulse Ox 98 03/23/19 10:14 Weight: 91.5 kg - Exam Quality Assessment: No: Supplemental Oxygen General: Alert, Oriented, Cooperative, Mild Distress HEENT: Conjunctiva Clear. No: Mucosa Moist & [place] (dry), Scleral Icterus Neck: Supple, Trachea Midline Lungs: Clear to Auscultation, Normal Respiratory Effort Cardiovascular: Regular Rate, Regular Rhythm, Systolic Murmur GI/Abdominal Exam: Normal Bowel Sounds, Soft, No Distention, Tender, Other ( healing surgical scar with steri-strip LLQ. no erythema) Extremities: No Pedal Edema. No: Increased Warmth Skin: Warm, Dry Neuro Extensive - Mental Status: Alert, Oriented x3, Nl Response to Commands Neuro Extensive - Motor, Sensory, Reflexes: No: Dysarthria, Abnormal Motor, Tremor Psychiatric: Alert, Normal Affect - Patient Data Lab Results Last 24 hrs: Laboratory Results - last 24 hr 03/23/19 03/23/19 03/23/19 Range/Units 11:10 11:10 11:10 WBC 9.2 (4.5-11.0) K/uL RBC 3.91 (3.30-5.50) M/uL Hgb 12.2 (12.0-15.0) g/dL Hct 36.2 (36.0-48.0) % MCV 93 (80-98) fL MCH 31 (27-31) pg MCHC 34 (32-36) % Plt Count 528 H (150-400) K/uL Neut % (Auto) 71 H (36-66) % Lymph % (Auto) 18 L (24-44) % Dixon % (Auto) 5 (2-6) % Eos % (Auto) 5 H (2-4) % Baso % (Auto) 1 (0-1) % Sodium 138 L (140-148) mmol/L Potassium 3.8 (3.6-5.2) mmol/L Chloride 100 (100-108) mmol/L Carbon Dioxide 24 (21-32) mmol/L Anion Gap 17.8 H (5.0-14.0) mmol/L BUN 7 D (7-18) mg/dL Creatinine 0.8 (0.6-1.0) mg/dL Est Cr Clr Drug Dosing 68.97 mL/min Estimated GFR (MDRD) > 60 (>60) Glucose 98 (74-106) mg/dL Lactic Acid 2.2 H (0.4-2.0) mmol/L Calcium 9.5 (8.5-10.1) mg/dL Total Bilirubin 0.2 (0.2-1.0) mg/dL AST 14 L (15-37) U/L ALT 21 (12-78) U/L Alkaline Phosphatase 227 H (46-116) U/L Total Protein 8.5 H (6.4-8.2) g/dL Albumin 3.1 L (3.4-5.0) g/dL Globulin 5.4 H (2.3-3.5) g/dL Albumin/Globulin Ratio 0.6 L (1.2-2.2) Lipase 42 L (73-393) U/L Urine Color (YELLOW) Urine Appearance (CLEAR) Urine pH (5.0-8.0) Ur Specific [place] (1.008-1.030) Urine Protein (NEGATIVE) mg/dL Urine Glucose (UA) (NEGATIVE) mg/dL Urine Ketones (NEGATIVE) mg/dL Urine Occult Blood (NEGATIVE) Urine Nitrite (NEGATIVE) Urine Bilirubin (NEGATIVE) Urine Urobilinogen (0.2-1.0) EU/dL Ur Leukocyte Esterase (NEGATIVE) Urine RBC (0-5) Urine WBC (0-5) Ur Epithelial Cells Amorphous Sediment Urine Bacteria Urine Mucus 03/23/19 Range/Units 13:06 WBC (4.5-11.0) K/uL RBC (3.30-5.50) M/uL Hgb (12.0-15.0) g/dL Hct (36.0-48.0) % MCV (80-98) fL MCH (27-31) pg MCHC (32-36) % Plt Count (150-400) K/uL Neut % (Auto) (36-66) % Lymph % (Auto) (24-44) % Dixon % (Auto) (2-6) % Eos % (Auto) (2-4) % Baso % (Auto) (0-1) % Sodium (140-148) mmol/L Potassium (3.6-5.2) mmol/L Chloride (100-108) mmol/L Carbon Dioxide (21-32) mmol/L Anion Gap (5.0-14.0) mmol/L BUN (7-18) mg/dL Creatinine (0.6-1.0) mg/dL Est Cr Clr Drug Dosing mL/min Estimated GFR (MDRD) (>60) Glucose (74-106) mg/dL Lactic Acid (0.4-2.0) mmol/L Calcium (8.5-10.1) mg/dL Total Bilirubin (0.2-1.0) mg/dL AST (15-37) U/L ALT (12-78) U/L Alkaline Phosphatase (46-116) U/L Total Protein (6.4-8.2) g/dL Albumin (3.4-5.0) g/dL Globulin (2.3-3.5) g/dL Albumin/Globulin Ratio (1.2-2.2) Lipase (73-393) U/L Urine Color Yellow (YELLOW) Urine Appearance Slightly cloudy A (CLEAR) Urine pH 8.5 H (5.0-8.0) Ur Specific [place] 1.015 (1.008-1.030) Urine Protein Negative (NEGATIVE) mg/dL Urine Glucose (UA) Negative (NEGATIVE) mg/dL Urine Ketones Trace H (NEGATIVE) mg/dL Urine Occult Blood Negative (NEGATIVE) Urine Nitrite Negative (NEGATIVE) Urine Bilirubin Negative (NEGATIVE) Urine Urobilinogen 0.2 (0.2-1.0) EU/dL Ur Leukocyte Esterase Negative (NEGATIVE) Urine RBC 0-5 (0-5) Urine WBC Not seen (0-5) Ur Epithelial Cells Rare Amorphous Sediment Rare Urine Bacteria Not seen Urine Mucus Not seen Result Diagrams: 03/23/19 11:10 03/23/19 11:10 Imaging Impressions Last 24 hrs: CT abd/pelvis - images personally reviewed - 6 cm abscess left pelvis at the opening of the left inguinal canal. Possible colitis of transverse and descending at the splenic flexure. There is a very small amount of stranding around one posterior diverticulum that the radiologist felt was consistent with either mild early diverticulitis or healing diverticulitis. S/P left lower abdominal hernia repair. No obstruction. *Q Meaningful Use (ADM) - VTE Risk Assess *Q Each Risk Factor Represents 1 Point: Age 41 - 59 years, Obesity ( BMI > 25 kg/m2 ) Total Score 1 Point Risk Factors: 2 Each Risk Factor Represents 2 Points: None Total Score 2 Point Risk Factors: 0 Each Risk Factor Represents 3 Points: None Total Score 3 Point Risk Factors: 0 Each Risk Factor Represents 5 Points: None Total Score 5 Point Risk Factors: 0 Venous Thromboembolism Risk Factor Score *Q: 2 - Problem List (1) Abscess of pelvis SNOMED Code(s): 922855587 ICD Code: [id number] - Status: Acute Current Visit: Yes (2) Status post left inguinal hernia repair SNOMED Code(s): 103327031, 610606958 ICD Code: Z98.890 - OTHER SPECIFIED POSTPROCEDURAL STATES; Z87.19 - PERSONAL HISTORY OF OTHER DISEASES OF THE DIGESTIVE SYSTEM Status: Acute Current Visit: No Problem Details: With mesh (3) Fibromyalgia SNOMED Code(s): 345866131 ICD Code: M79.7 - FIBROMYALGIA Status: Chronic Current Visit: No Problem List Initiated/Reviewed/Updated: Yes Orders Last 24hrs: Active Orders 24 hr Category Date Time Status Patient Status Manage Transfer [TRANSFER] Routine ADT 03/23/19 14:50 Ordered Peripheral IV Care [RC] . DIRECTED Care 03/23/19 10:49 Active Lactated Ringers [Ringers, Lactated] 1,000 ml Med 03/23/19 11:00 Active IV ASDIRECTED Lactated Ringers [Ringers, Lactated] 1,000 ml Med 03/23/19 12:48 Active IV BOLUS Sodium Chloride 0.9% [Saline Flush] Med 03/23/19 10:49 Active 10 ml FLUSH ASDIRECTED PRN Peripheral IV Insertion Adult [OM.PC] Urgent Oth 03/23/19 10:49 Ordered Resuscitation Status Routine Resus Stat 03/23/19 14:52 Ordered Medication Orders Lactated Ringer's (Ringers, Lactated) 1,000 mls @ 999 mls/hr IV ASDIRECTED ISABEL Last Admin: 03/23/19 11:33 Dose: 999 mls/hr Lactated Ringer's (Ringers, Lactated) 1,000 mls @ 250 mls/hr IV BOLUS ONE Stop: 03/23/19 16:47 Last Admin: 03/23/19 12:53 Dose: 250 mls/hr Sodium Chloride (Saline Flush) 10 ml FLUSH ASDIRECTED PRN PRN Reason: Keep Vein Open Last Admin: 03/23/19 11:57 Dose: 10 ml Assessment/Plan Comment:: ASSESSMENT AND PLAN - Left pelvic abscess-6 cm fluid collection with gas in the left lower pelvis concerning for abscess. She did have a recent surgery. She does not have a significant pain in this area of her abdomen. No evidence for sepsis. -Antibiotic coverage with ceftazidime and aztreonam -Blood cultures if she has a fever -Pain control -Surgical consultation with Dr. Villarreal Possible mild diverticulitis plus or minus colitis-CT scan identified 1 very small area with stranding around a diverticulum that could suggest either early diverticulitis or healing diverticulitis. Colon appeared thickened around the splenic flexure but patient does not have any diarrhea so I doubt that she has colitis at this time. -Antibiotic coverage as above -Symptom management Chronic pain-stable at this time. -Continue usual medications Depression with anxiety-stable at this time. -Continue home medications Maintenance issues - - DVT prophylaxis - mechanical in case she needs a procedure - GI prophylaxis -PPI - Nutrition -clear liquids today, nothing by mouth after midnight - Espitia catheter -not indicated CODE STATUS -full code Admission justification -this patient will be admitted for inpatient services and is medically appropriate meeting medical necessity for inpatient admission as outlined in my documentation. I reasonably expect the patient will require inpatient services that span a period time over 2 midnights. I reasonably expect this patient to be discharged or transferred within 96 hours [facility]. Disposition -I would anticipate discharge home after the hospital stay Primary care physician -Dr Jose Maria Gonzalez M.D. - Mortality Measure Prognosis:: Good
[2019-03-23] MEDS ORDERED: HYDROmorphone 1 MG/ML Syringe IVPUSH ONE (16:33)
[2019-03-23] MEDS ORDERED: LORazepam 0.5 MG Tab PO PRN (16:57)
[2019-03-23] MEDS ORDERED: LORazepam 2 MG/ML SDV IVPUSH PRN (16:57)
[2019-03-23] MEDS ORDERED: Ondansetron 4 MG Tab.DIS PO PRN (16:57)
[2019-03-23] MEDS ORDERED: Albuterol 0.083% 2.5 MG/3 ML Neb Soln NEB PRN (16:57)
[2019-03-23] MEDS ORDERED: Ondansetron 4 MG/2 ML SDV IV PRN (16:57)
[2019-03-23] MEDS ORDERED: Magnesium Hydroxide 400 MG/5 ML Susp 30 ML Cup PO PRN (16:57)
[2019-03-23] MEDS: HYDROmorphone 2 MG Tab PO PRN ×2 (17:54→21:12)
[2019-03-23] MEDS: NS + KCl 20mEq/L 1,000 ML IV SCH (17:56)
[2019-03-23] MEDS: Pantoprazole 40 MG Tab.CR PO SCH (18:02)
[2019-03-23] MEDS: Acetaminophen 325 MG Tab PO PRN (20:17)
[2019-03-23] MEDS: Lactobacillus Rhamnosus GG (Probiotic) Cap PO SCH (21:11)
[2019-03-23] MEDS: cycloSPORINE Ophth Drops U/D Box of 30 EYEBOTH SCH (21:12)
[2019-03-23] MEDS: Prazosin 1 MG Cap PO PRN (21:12)
[2019-03-23] MEDS: Gabapentin 300 MG Cap PO SCH (21:12)
[2019-03-24] MEDS: HYDROmorphone 2 MG Tab PO PRN ×3 (00:17→11:31)
[2019-03-24] MEDS: NS + KCl 20mEq/L 1,000 ML IV SCH (02:05)
[2019-03-24] MEDS: HYDROmorphone 1 MG/ML Syringe IVPUSH PRN ×3 (05:06→21:27)
--- NOTE | 2019-03-24 05:48 | CRLCR ---
Indication: Abdominal pain Technique: KUB 2 view Comparison: Abdominal CT March 23, 2019 Findings/Impression: : Soft tissues: No suspicious calcifications to suggest kidney or ureteral stones. No sign of free air. No sign of soft tissue mass. Surgical clips in the right upper quadrant. Residual intravenous contrast in the urinary bladder. Herniorrhaphy fabio noted over the left groin. Bowel: Air-filled loops of nondilated colon. Bones: Unremarkable for age. Dictated by Venice Quispe MD @ Mar 24 2019 5:43AM Signed by Dr. Venice Quispe @ Mar 24 2019 5:45AM
[2019-03-24] MEDS: Pantoprazole 40 MG Tab.CR PO SCH ×2 (07:35→15:34)
[2019-03-24] MEDS: Escitalopram 20 MG Tab PO SCH (08:32)
[2019-03-24] MEDS: Lactobacillus Rhamnosus GG (Probiotic) Cap PO SCH ×2 (08:32→21:19)
[2019-03-24] MEDS: Gabapentin 300 MG Cap PO SCH ×3 (08:32→21:19)
[2019-03-24] MEDS: cycloSPORINE Ophth Drops U/D Box of 30 EYEBOTH SCH ×2 (08:35→21:18)
[2019-03-24] MEDS ORDERED: Bisacodyl 5 MG Tab PO ONE ×2 (10:00→20:00)
--- NOTE | 2019-03-24 10:06 | PCM.PN ---
- General Info Date of Service: 03/24/19 Subjective Update: No acute events overnight. Abdominal pain is better but has not resolved. No fevers overnight. She did have some loose stools this morning but did receive bowel stimulation yesterday evening. No nausea or vomiting. Tolerating clear liquids. No shortness of breath. Repeat x-ray this morning shows nonobstructive bowel gas pattern. Functional Status: Reports: Pain Controlled, Tolerating Diet - Review of Systems General: Denies: Fever Gastrointestinal: Reports: Abdominal Pain - Patient Data Vitals - Most Recent: Last Vital Signs Temp 36.3 C 03/24/19 07:23 Pulse 72 03/24/19 07:23 Resp 16 03/24/19 07:23 BP 118/70 03/24/19 07:23 Pulse Ox 99 03/24/19 07:23 Weight - Most Recent: 91.852 kg I&O - Last 24 Hours: Intake & Output 03/23/19 03/24/19 03/24/19 22:59 06:59 14:59 Intake Total 145 2006 Output Total 200 500 Balance -55 1506 Lab Results Last 24 Hours: Laboratory Results - last 24 hr 03/23/19 03/23/19 03/23/19 Range/Units 11:10 11:10 11:10 WBC 9.2 (4.5-11.0) K/uL RBC 3.91 (3.30-5.50) M/uL Hgb 12.2 (12.0-15.0) g/dL Hct 36.2 (36.0-48.0) % MCV 93 (80-98) fL MCH 31 (27-31) pg MCHC 34 (32-36) % Plt Count 528 H (150-400) K/uL Neut % (Auto) 71 H (36-66) % Lymph % (Auto) 18 L (24-44) % [place] % (Auto) 5 (2-6) % Eos % (Auto) 5 H (2-4) % Baso % (Auto) 1 (0-1) % Sodium 138 L (140-148) mmol/L Potassium 3.8 (3.6-5.2) mmol/L Chloride 100 (100-108) mmol/L Carbon Dioxide 24 (21-32) mmol/L Anion Gap 17.8 H (5.0-14.0) mmol/L BUN 7 D (7-18) mg/dL Creatinine 0.8 (0.6-1.0) mg/dL Est Cr Clr Drug Dosing 68.97 mL/min Estimated GFR (MDRD) > 60 (>60) Glucose 98 (74-106) mg/dL Lactic Acid 2.2 H (0.4-2.0) mmol/L Calcium 9.5 (8.5-10.1) mg/dL Total Bilirubin 0.2 (0.2-1.0) mg/dL AST 14 L (15-37) U/L ALT 21 (12-78) U/L Alkaline Phosphatase 227 H (46-116) U/L Total Protein 8.5 H (6.4-8.2) g/dL Albumin 3.1 L (3.4-5.0) g/dL Globulin 5.4 H (2.3-3.5) g/dL Albumin/Globulin Ratio 0.6 L (1.2-2.2) Lipase 42 L (73-393) U/L Urine Color (YELLOW) Urine Appearance (CLEAR) Urine pH (5.0-8.0) Ur Specific [place] (1.008-1.030) Urine Protein (NEGATIVE) mg/dL Urine Glucose (UA) (NEGATIVE) mg/dL Urine Ketones (NEGATIVE) mg/dL Urine Occult Blood (NEGATIVE) Urine Nitrite (NEGATIVE) Urine Bilirubin (NEGATIVE) Urine Urobilinogen (0.2-1.0) EU/dL Ur Leukocyte Esterase (NEGATIVE) Urine RBC (0-5) Urine WBC (0-5) Ur Epithelial Cells Amorphous Sediment Urine Bacteria Urine Mucus 03/23/19 03/24/19 03/24/19 Range/Units 13:06 04:30 04:30 WBC 5.6 (4.5-11.0) K/uL RBC 3.35 (3.30-5.50) M/uL Hgb 10.1 L D (12.0-15.0) g/dL Hct 32.1 L (36.0-48.0) % MCV 96 (80-98) fL MCH 30 (27-31) pg MCHC 32 (32-36) % Plt Count 453 H (150-400) K/uL Neut % (Auto) (36-66) % Lymph % (Auto) (24-44) % [place] % (Auto) (2-6) % Eos % (Auto) (2-4) % Baso % (Auto) (0-1) % Sodium 138 L (140-148) mmol/L Potassium 4.4 (3.6-5.2) mmol/L Chloride 106 (100-108) mmol/L Carbon Dioxide 24 (21-32) mmol/L Anion Gap 12.4 (5.0-14.0) mmol/L BUN 7 (7-18) mg/dL Creatinine 0.8 (0.6-1.0) mg/dL Est Cr Clr Drug Dosing 68.97 mL/min Estimated GFR (MDRD) > 60 (>60) Glucose 91 (74-106) mg/dL Lactic Acid (0.4-2.0) mmol/L Calcium 8.3 L (8.5-10.1) mg/dL Total Bilirubin (0.2-1.0) mg/dL AST (15-37) U/L ALT (12-78) U/L Alkaline Phosphatase (46-116) U/L Total Protein (6.4-8.2) g/dL Albumin (3.4-5.0) g/dL Globulin (2.3-3.5) g/dL Albumin/Globulin Ratio (1.2-2.2) Lipase (73-393) U/L Urine Color Yellow (YELLOW) Urine Appearance Slightly cloudy A (CLEAR) Urine pH 8.5 H (5.0-8.0) Ur Specific [place] 1.015 (1.008-1.030) Urine Protein Negative (NEGATIVE) mg/dL Urine Glucose (UA) Negative (NEGATIVE) mg/dL Urine Ketones Trace H (NEGATIVE) mg/dL Urine Occult Blood Negative (NEGATIVE) Urine Nitrite Negative (NEGATIVE) Urine Bilirubin Negative (NEGATIVE) Urine Urobilinogen 0.2 (0.2-1.0) EU/dL Ur Leukocyte Esterase Negative (NEGATIVE) Urine RBC 0-5 (0-5) Urine WBC Not seen (0-5) Ur Epithelial Cells Rare Amorphous Sediment Rare Urine Bacteria Not seen Urine Mucus Not seen Med Orders - Current: Current Medications Acetaminophen (Tylenol) 650 mg PO Q4H PRN PRN Reason: Pain (Mild 1-3)/fever Last Admin: 03/23/19 20:17 Dose: 650 mg Albuterol (Proventil Neb Soln) 2.5 mg NEB Q4H PRN PRN Reason: Shortness Of Breath/wheezing Amitriptyline HCl (Elavil) 50 mg PO BEDTIME [facility] Last Admin: 03/23/19 21:12 Dose: 50 mg Bisacodyl (Dulcolax) 10 mg PO ONETIME ONE Stop: 03/24/19 20:01 Cyclobenzaprine HCl (Flexeril) 10 mg PO TID PRN PRN Reason: Muscle Spasm Cyclosporine (Restasis) 1 each EYEBOTH BID [facility] Last Admin: 03/24/19 08:35 Dose: 1 drop Escitalopram Oxalate (Lexapro) 20 mg PO DAILY [facility] Last Admin: 03/24/19 08:32 Dose: 20 mg Gabapentin (Neurontin) 900 mg PO TID [facility] Last Admin: 03/24/19 08:32 Dose: 900 mg Hydromorphone HCl (Dilaudid) 1 mg IVPUSH Q2H PRN PRN Reason: Pain (severe 7-10) Last Admin: 03/24/19 05:06 Dose: 1 mg Hydromorphone HCl (Dilaudid) 2 mg PO Q3H PRN PRN Reason: Pain (moderate 4-6) Last Admin: 03/24/19 07:40 Dose: 2 mg Ceftazidime 1 gm/ Sodium (Chloride) 50 mls @ 100 mls/hr IV Q8H [facility] Last Admin: 03/24/19 05:07 Dose: 100 mls/hr Dextrose/Lactated Ringer's (Dextrose 5%-Lactated Ringers) 1,000 mls @ 100 mls/ hr IV ASDIRECTED [facility] Lactobacillus Rhamnosus (Culturelle) 1 cap PO BID [facility] Last Admin: 03/24/19 08:32 Dose: 1 cap Lorazepam (Ativan) 0.5 mg PO Q6H PRN PRN Reason: Anxiety Lorazepam (Ativan) 0.5 mg IVPUSH Q4H PRN PRN Reason: Nausea/Vomiting Magnesium Hydroxide (Milk Of Magnesia) 30 ml PO Q12H PRN PRN Reason: Constipation Last Admin: 03/23/19 17:54 Dose: 30 ml Ondansetron HCl (Zofran Odt) 4 mg PO Q6H PRN PRN Reason: Nausea able to take PO Last Admin: 03/23/19 21:19 Dose: 4 mg Ondansetron HCl (Zofran) 4 mg IV Q6H PRN PRN Reason: Nausea/Vomiting Pantoprazole Sodium (Protonix) 40 mg PO BIDAC [facility] Last Admin: 03/24/19 07:35 Dose: 40 mg Polyethylene Glycol (Miralax) 238 gm PO ONETIME ONE Stop: 03/24/19 17:01 Prazosin HCl (Minpress) 1 mg PO BEDTIME PRN PRN Reason: Insomnia Last Admin: 03/23/19 21:12 Dose: 1 mg Senna/Docusate Sodium (Senna Plus) 1 tab PO BID PRN PRN Reason: Constipation Sodium Chloride (Saline Flush) 10 ml FLUSH ASDIRECTED PRN PRN Reason: Keep Vein Open Last Admin: 03/23/19 11:57 Dose: 10 ml Discontinued Medications Bisacodyl (Dulcolax) 10 mg PO ONETIME ONE Stop: 03/24/19 10:01 Fentanyl (Sublimaze) 50 mcg IVPUSH ONETIME ONE Stop: 03/23/19 10:51 Last Admin: 03/23/19 11:33 Dose: 50 mcg Fentanyl (Sublimaze) 50 mcg IVPUSH ONETIME ONE Stop: 03/23/19 14:04 Last Admin: 03/23/19 14:16 Dose: 50 mcg Hydromorphone HCl (Dilaudid) 1 mg IVPUSH ONETIME ONE Stop: 03/23/19 16:34 Last Admin: 03/23/19 16:42 Dose: 1 mg Lactated Ringer's (Ringers, Lactated) 1,000 mls @ 999 mls/hr IV ASDIRECTED [facility] Last Admin: 03/23/19 11:33 Dose: 999 mls/hr Sodium Chloride (Normal Saline) 81 mls @ 3 mls/sec IV ASDIRECTED [facility] Stop: 03/23/19 14:00 Last Admin: 03/23/19 11:55 Dose: 3 mls/sec Lactated Ringer's (Ringers, Lactated) 1,000 mls @ 250 mls/hr IV BOLUS ONE Stop: 03/23/19 16:47 Last Admin: 03/23/19 12:53 Dose: 250 mls/hr Ceftazidime 1 gm/ Sodium (Chloride) 50 mls @ 100 mls/hr IV ONETIME ONE Stop: 03/23/19 14:13 Last Admin: 03/23/19 14:09 Dose: 100 mls/hr Potassium Chloride/Sodium Chloride (Normal Saline With 20 Meq Kcl) 1,000 mls @ 125 mls/hr IV ASDIRECTED [facility] Last Admin: 03/24/19 02:05 Dose: 125 mls/hr Iopamidol (Isovue-300 (61%)) 136 ml IV . DIRECTED [facility] Stop: 03/23/19 14:00 Last Admin: 03/23/19 11:55 Dose: 123 ml Ondansetron HCl (Zofran) 4 mg IVPUSH ONETIME ONE Stop: 03/23/19 10:51 Last Admin: 03/23/19 11:33 Dose: 4 mg Sodium Chloride (Saline Flush) 10 ml FLUSH ONETIME ONE Stop: 03/23/19 11:17 Last Admin: 03/23/19 11:33 Dose: 10 ml - Exam Quality Assessment: No: Supplemental Oxygen General: Alert, Oriented, Cooperative, No Acute Distress Lungs: Normal Respiratory Effort GI/Abdominal Exam: Soft, No Distention, Tender (RUQ and left side, mild to moderate ) Extremities: No Pedal Edema Psy/Mental Status: Alert, Normal Affect - Problem List & Annotations (1) Abscess of pelvis SNOMED Code(s): 792935690 Code(s): LGJ5534 - Status: Acute Current Visit: Yes (2) Status post left inguinal hernia repair SNOMED Code(s): 060139998, 948328215 Code(s): Z98.890 - OTHER SPECIFIED POSTPROCEDURAL STATES; Z87.19 - PERSONAL HISTORY OF OTHER DISEASES OF THE DIGESTIVE SYSTEM Status: Acute Current Visit: No Annotation/Comment:: With mesh (3) Fibromyalgia SNOMED Code(s): 500382245 Code(s): M79.7 - FIBROMYALGIA Status: Chronic Current Visit: No - Problem List Review Problem List Initiated/Reviewed/Updated: Yes - My Orders Last 24 Hours: My Active Orders 03/23/19 14:52 Resuscitation Status Routine 03/23/19 16:57 Patient Status [ADT] Routine Antiembolic Devices [RC] .Routine Intake and Output [RC] QSHIFT Notify Provider Consults [RC] ASDIRECTED Notify Provider Vital Signs [RC] ASDIRECTED Oxygen Therapy [RC] PRN RT Aerosol Therapy [RC] ASDIRECTED Up ad Wendi [RC] ASDIRECTED VTE/DVT Education [RC] Per Unit Routine Vital Signs [RC] Q4H Consult to Physician [CONS] Routine Acetaminophen [Tylenol] 650 mg PO Q4H PRN Albuterol [Proventil Neb Soln] 2.5 mg NEB Q4H PRN Cyclobenzaprine [Flexeril] 10 mg PO TID PRN Docusate Sodium/Sennosides [Senna Plus] 1 tab PO BID PRN HYDROmorphone [Dilaudid] 1 mg IVPUSH Q2H PRN HYDROmorphone [Dilaudid] 2 mg PO Q3H PRN LORazepam [Ativan] 0.5 mg IVPUSH Q4H PRN LORazepam [Ativan] 0.5 mg PO Q6H PRN Magnesium Hydroxide [Milk of Magnesia] 30 ml PO Q12H PRN Ondansetron [Zofran ODT] 4 mg PO Q6H PRN Ondansetron [Zofran] 4 mg IV Q6H PRN Prazosin [Minpress] 1 mg PO BEDTIME PRN Sequential Compression Device [OM.PC] Routine 03/23/19 17:30 Pantoprazole [ProTONIX] 40 mg PO BIDAC 03/23/19 21:00 Amitriptyline [Elavil] 50 mg PO BEDTIME Gabapentin [Neurontin] 900 mg PO TID Lactobacillus Rhamnosus GG [Culturelle] 1 cap PO BID cycloSPORINE [Restasis] 1 each EYEBOTH BID 03/23/19 22:00 cefTAZidime Pentahydrate [Fortaz] 1 gm Sodium Chloride 0.9% [Normal Saline] 50 ml IV Q8H 03/23/19 Dinner Nothing per Oral After Midnight Diet [DIET] 03/24/19 09:00 Escitalopram [Lexapro] 20 mg PO DAILY 03/25/19 05:00 CBC W/O DIFF,HEMOGRAM [HEME] Timed (1) - Plan Plan:: ASSESSMENT AND PLAN - Left pelvic abscess-6 cm fluid collection with gas in the left lower pelvis concerning for abscess. She did have a recent surgery. She does have some pain in the left lower quadrant. -Antibiotic coverage with ceftazidime -Blood cultures if she has a fever -Pain control -Surgical consultation with Dr. Villarreal Possible mild diverticulitis plus or minus colitis-CT scan identified 1 very small area with stranding around a diverticulum that could suggest either early diverticulitis or healing diverticulitis. I doubt she has colitis without any diarrhea. She did have some loose stools but did have bowel stimulation last night. Colonoscopy is planned for tomorrow but I suspect this will be low yield. -Bowel prep planned by Dr. Villarreal with colonoscopy in the morning -Antibiotic coverage as above -Symptom management Chronic pain-stable at this time. -Continue usual medications Depression with anxiety-stable at this time. -Continue home medications Maintenance issues - - DVT prophylaxis - mechanical in case she needs a procedure - GI prophylaxis -PPI - Nutrition -clear liquids today, nothing by mouth after midnight Disposition -I would anticipate discharge home after the hospital stay Keyur Gonzalez M.D.
[2019-03-24] MEDS: Acetaminophen 325 MG Tab PO PRN (10:32)
[2019-03-24] MEDS: Dextrose 5%-Lactated Ringers 1,000 ML IV SCH ×2 (10:41→21:15)
[2019-03-24] MEDS ORDERED: Polyethylene Glycol 3350 Powder 238 GM Bot PO ONE (17:00)
[2019-03-24] MEDS: Prazosin 1 MG Cap PO PRN (21:31)
[2019-03-25] MEDS: HYDROmorphone 1 MG/ML Syringe IVPUSH PRN (03:35)
[2019-03-25] MEDS ORDERED: Propofol 200 MG/20 ML SDV ONE ×2 (07:22→07:46)
[2019-03-25] MEDS ORDERED: Midazolam 1 MG/ML 2 ML SDV ONE (07:23)
[2019-03-25] MEDS ORDERED: fentaNYL 100 MCG/2 ML SDV ONE (07:23)
[2019-03-25] MEDS ORDERED: Meropenem 500 MG SDV ONE (07:42)
[2019-03-25] MEDS: cycloSPORINE Ophth Drops U/D Box of 30 EYEBOTH SCH ×2 (08:45→21:01)
[2019-03-25] MEDS: Lactobacillus Rhamnosus GG (Probiotic) Cap PO SCH ×2 (08:45→21:01)
[2019-03-25] MEDS: Gabapentin 300 MG Cap PO SCH ×3 (08:45→21:01)
[2019-03-25] MEDS: Escitalopram 20 MG Tab PO SCH (08:45)
[2019-03-25] MEDS: Pantoprazole 40 MG Tab.CR PO SCH ×2 (08:51→15:52)
[2019-03-25] MEDS: HYDROmorphone 2 MG Tab PO PRN ×4 (10:23→21:11)
[2019-03-25] MEDS: Meropenem 500 MG in Sodium Chloride 0.9% 50 ML IV SCH ×3 (10:24→21:01)
--- NOTE | 2019-03-25 10:31 | PCM.PN ---
- General Info Date of Service: 03/25/19 Subjective Update: No acute events overnight. Patient completed her bowel prep last night and had a colonoscopy this morning. This did show some right-sided patchy and localized colitis with purulent discharge from a diverticulum. She reports moderate pain at this time, mostly on the left side. She is passing gas. No blood in her stool. No fevers. Tolerating clear liquids as of yesterday. Stool studies for fecal leukocytes and C. difficile were negative. Functional Status: Reports: Pain Controlled, Tolerating Diet - Review of Systems Gastrointestinal: Reports: Abdominal Pain, Flatus - Patient Data Vitals - Most Recent: Last Vital Signs Temp 37.3 C 03/25/19 09:15 Pulse 86 03/25/19 10:30 Resp 16 03/25/19 10:30 BP 114/57 L 03/25/19 10:30 Pulse Ox 96 03/25/19 10:30 Weight - Most Recent: 91.852 kg I&O - Last 24 Hours: Intake & Output 03/24/19 03/25/19 03/25/19 22:59 06:59 14:59 Intake Total 3335 1230 470 Output Total 500 Balance 3335 730 470 Lab Results Last 24 Hours: Laboratory Results - last 24 hr 03/25/19 03/25/19 Range/Units 04:00 04:00 WBC 6.7 (4.5-11.0) K/uL RBC 3.27 L (3.30-5.50) M/uL Hgb 9.6 L (12.0-15.0) g/dL Hct 31.2 L (36.0-48.0) % MCV 95 (80-98) fL MCH 29 (27-31) pg MCHC 31 L (32-36) % Plt Count 447 H (150-400) K/uL Neut % (Auto) 54 (36-66) % Lymph % (Auto) 28 (24-44) % [place] % (Auto) 7 H (2-6) % Eos % (Auto) 10 H (2-4) % Baso % (Auto) 1 (0-1) % Sodium 140 (140-148) mmol/L Potassium 3.6 (3.6-5.2) mmol/L Chloride 105 (100-108) mmol/L Carbon Dioxide 24 (21-32) mmol/L Anion Gap 10.7 (5.0-14.0) mmol/L BUN 2 L D (7-18) mg/dL Creatinine 0.7 (0.6-1.0) mg/dL Est Cr Clr Drug Dosing 78.83 mL/min Estimated GFR (MDRD) > 60 (>60) Glucose 103 (74-106) mg/dL Calcium 8.4 L (8.5-10.1) mg/dL Phosphorus 4.1 (2.5-4.9) mg/dL Magnesium 1.9 (1.8-2.4) mg/dL Total Bilirubin 0.2 (0.2-1.0) mg/dL AST 40 H D (15-37) U/L ALT 52 D (12-78) U/L Alkaline Phosphatase 305 H (46-116) U/L Total Protein 6.4 (6.4-8.2) g/dL Albumin 2.4 L (3.4-5.0) g/dL Globulin 4.0 H (2.3-3.5) g/dL Albumin/Globulin Ratio 0.6 L (1.2-2.2) [place] Results Last 24 Hours: Microbiology 03/25/19 08:36 Clostridioides difficile (PCR) - Final Stool / Feces - Stool, Liquid 03/25/19 08:36 Stool for WBCs - Final Stool / Feces - Stool, Liquid NO WBC SEEN REFERENCE RANGE: NO WBC SEEN Med Orders - Current: Current Medications Acetaminophen (Tylenol) 650 mg PO Q4H PRN PRN Reason: Pain (Mild 1-3)/fever Last Admin: 03/24/19 10:32 Dose: 650 mg Albuterol (Proventil Neb Soln) 2.5 mg NEB Q4H PRN PRN Reason: Shortness Of Breath/wheezing Amitriptyline HCl (Elavil) 50 mg PO BEDTIME [facility] Last Admin: 03/24/19 21:19 Dose: 50 mg Cyclobenzaprine HCl (Flexeril) 10 mg PO TID PRN PRN Reason: Muscle Spasm Cyclosporine (Restasis) 1 each EYEBOTH BID [facility] Last Admin: 03/25/19 08:45 Dose: 1 drop Escitalopram Oxalate (Lexapro) 20 mg PO DAILY [facility] Last Admin: 03/25/19 08:45 Dose: 20 mg Gabapentin (Neurontin) 900 mg PO TID [facility] Last Admin: 03/25/19 08:45 Dose: 900 mg Hydromorphone HCl (Dilaudid) 1 mg IVPUSH Q2H PRN PRN Reason: Pain (severe 7-10) Last Admin: 03/25/19 03:35 Dose: 1 mg Hydromorphone HCl (Dilaudid) 2 mg PO Q3H PRN PRN Reason: Pain (moderate 4-6) Last Admin: 03/25/19 10:23 Dose: 2 mg Dextrose/Lactated Ringer's (Dextrose 5%-Lactated Ringers) 1,000 mls @ 100 mls/ hr IV ASDIRECTED [facility] Last Admin: 03/24/19 21:15 Dose: 100 mls/hr Meropenem 500 mg/ Sodium (Chloride) 50 mls @ 100 mls/hr IV Q6H [facility] Last Admin: 03/25/19 10:24 Dose: 100 mls/hr Lactobacillus Rhamnosus (Culturelle) 1 cap PO BID [facility] Last Admin: 03/25/19 08:45 Dose: 1 cap Lorazepam (Ativan) 0.5 mg PO Q6H PRN PRN Reason: Anxiety Lorazepam (Ativan) 0.5 mg IVPUSH Q4H PRN PRN Reason: Nausea/Vomiting Magnesium Hydroxide (Milk Of Magnesia) 30 ml PO Q12H PRN PRN Reason: Constipation Last Admin: 03/23/19 17:54 Dose: 30 ml Ondansetron HCl (Zofran Odt) 4 mg PO Q6H PRN PRN Reason: Nausea able to take PO Last Admin: 03/23/19 21:19 Dose: 4 mg Ondansetron HCl (Zofran) 4 mg IV Q6H PRN PRN Reason: Nausea/Vomiting Last Admin: 03/24/19 12:13 Dose: 4 mg Pantoprazole Sodium (Protonix) 40 mg PO BIDAC [facility] Last Admin: 03/25/19 08:51 Dose: 40 mg Prazosin HCl (Minpress) 1 mg PO BEDTIME PRN PRN Reason: Insomnia Last Admin: 03/24/19 21:31 Dose: 1 mg Senna/Docusate Sodium (Senna Plus) 1 tab PO BID PRN PRN Reason: Constipation Sodium Chloride (Saline Flush) 10 ml FLUSH ASDIRECTED PRN PRN Reason: Keep Vein Open Last Admin: 03/23/19 11:57 Dose: 10 ml Discontinued Medications Bisacodyl (Dulcolax) 10 mg PO ONETIME ONE Stop: 03/24/19 10:01 Last Admin: 03/24/19 10:31 Dose: 10 mg Bisacodyl (Dulcolax) 10 mg PO ONETIME ONE Stop: 03/24/19 20:01 Last Admin: 03/24/19 19:48 Dose: Not Given Fentanyl (Sublimaze) 50 mcg IVPUSH ONETIME ONE Stop: 03/23/19 10:51 Last Admin: 03/23/19 11:33 Dose: 50 mcg Fentanyl (Sublimaze) 50 mcg IVPUSH ONETIME ONE Stop: 03/23/19 14:04 Last Admin: 03/23/19 14:16 Dose: 50 mcg Fentanyl (Sublimaze) Confirm Administered Dose 100 mcg .ROUTE .STK-MED ONE Stop: 03/25/19 07:24 Hydromorphone HCl (Dilaudid) 1 mg IVPUSH ONETIME ONE Stop: 03/23/19 16:34 Last Admin: 03/23/19 16:42 Dose: 1 mg Lactated Ringer's (Ringers, Lactated) 1,000 mls @ 999 mls/hr IV ASDIRECTED [facility] Last Admin: 03/23/19 11:33 Dose: 999 mls/hr Sodium Chloride (Normal Saline) 81 mls @ 3 mls/sec IV ASDIRECTED [facility] Stop: 03/23/19 14:00 Last Admin: 03/23/19 11:55 Dose: 3 mls/sec Lactated Ringer's (Ringers, Lactated) 1,000 mls @ 250 mls/hr IV BOLUS ONE Stop: 03/23/19 16:47 Last Admin: 03/23/19 12:53 Dose: 250 mls/hr Ceftazidime 1 gm/ Sodium (Chloride) 50 mls @ 100 mls/hr IV ONETIME ONE Stop: 03/23/19 14:13 Last Admin: 03/23/19 14:09 Dose: 100 mls/hr Ceftazidime 1 gm/ Sodium (Chloride) 50 mls @ 100 mls/hr IV Q8H [facility] Last Admin: 03/25/19 05:21 Dose: 100 mls/hr Potassium Chloride/Sodium Chloride (Normal Saline With 20 Meq Kcl) 1,000 mls @ 125 mls/hr IV ASDIRECTED [facility] Last Admin: 03/24/19 02:05 Dose: 125 mls/hr Iopamidol (Isovue-300 (61%)) 136 ml IV . DIRECTED [facility] Stop: 03/23/19 14:00 Last Admin: 03/23/19 11:55 Dose: 123 ml Meropenem (Merrem) Confirm Administered Dose 500 mg .ROUTE .STK-MED ONE Stop: 03/25/19 07:43 Midazolam HCl (Versed 1 Mg/Ml) Confirm Administered Dose 2 mg .ROUTE .STK-MED ONE Stop: 03/25/19 07:24 Ondansetron HCl (Zofran) 4 mg IVPUSH ONETIME ONE Stop: 03/23/19 10:51 Last Admin: 03/23/19 11:33 Dose: 4 mg Polyethylene Glycol (Miralax) 238 gm PO ONETIME ONE Stop: 03/24/19 17:01 Last Admin: 03/24/19 16:58 Dose: 238 gm Propofol (Diprivan 20 Ml) Confirm Administered Dose 200 mg .ROUTE .STK-MED ONE Stop: 03/25/19 07:23 Propofol (Diprivan 20 Ml) Confirm Administered Dose 200 mg .ROUTE .STK-MED ONE Stop: 03/25/19 07:47 Sodium Chloride (Saline Flush) 10 ml FLUSH ONETIME ONE Stop: 03/23/19 11:17 Last Admin: 03/23/19 11:33 Dose: 10 ml - Exam Quality Assessment: No: Supplemental Oxygen General: Alert, Oriented, Cooperative, No Acute Distress Lungs: Normal Respiratory Effort GI/Abdominal Exam: Soft, No Distention Extremities: No Pedal Edema Psy/Mental Status: Alert, Normal Affect - Problem List & Annotations (1) Abscess of pelvis SNOMED Code(s): 550068547 Code(s): FFB7558 - Status: Acute Current Visit: Yes (2) Status post left inguinal hernia repair SNOMED Code(s): 727837155, 635491246 Code(s): Z98.890 - OTHER SPECIFIED POSTPROCEDURAL STATES; Z87.19 - PERSONAL HISTORY OF OTHER DISEASES OF THE DIGESTIVE SYSTEM Status: Acute Current Visit: No Annotation/Comment:: With mesh (3) Fibromyalgia SNOMED Code(s): 757254246 Code(s): M79.7 - FIBROMYALGIA Status: Chronic Current Visit: No (4) Diverticulitis large intestine SNOMED Code(s): 0892896 Code(s): K57.32 - DVTRCLI OF LG INT W/O PERFORATION OR ABSCESS W/O BLEEDING Status: Acute Current Visit: Yes Qualifiers: Diverticulitis bleeding: without bleeding Diverticulitis complication: without perforation or abscess Qualified Code(s): K57.32 - Diverticulitis of large intestine without perforation or abscess without bleeding - Problem List Review Problem List Initiated/Reviewed/Updated: Yes - My Orders Last 24 Hours: My Active Orders 03/25/19 08:48 CULTURE STOOL + SHIGATOX [RM] Routine - Plan Plan:: ASSESSMENT AND PLAN - Left pelvic abscess-6 cm fluid collection with gas in the left lower pelvis concerning for abscess. She did have a recent surgery. She does have some pain in the left lower quadrant. -Meropenem initiated this morning by Dr. Villarreal -Blood cultures if she has a fever -Pain control -Surgical consultation with Dr. Villarreal Mild right sided diverticulitis/colitis -colonoscopy identified 1 very small area of diverticulitis/patchy colitis on the right side of the colon. C. difficile testing was negative. -Follow-up stool culture -Antibiotic coverage as above -Symptom management Chronic pain-stable at this time. -Continue usual medications Depression with anxiety-stable at this time. -Continue home medications Maintenance issues - - DVT prophylaxis - mechanical in case she needs a procedure - GI prophylaxis -PPI - Nutrition -full liquids Disposition -I would anticipate discharge home after the hospital stay Keyur Gonzalez M.D.
--- NOTE | 2019-03-25 12:17 | CONS ---
DATE OF SERVICE: 03/24/2019 REFERRING PHYSICIAN: CONSULTING PHYSICIAN: Lisandro Villarreal MD HISTORY OF PRESENT ILLNESS: This is a 58-year-old female admitted with abdominal pain and abdominal distention. This began over the last 48 hours. It is felt since the recent surgery on 03/15/2019, she has had more pencil sized type stools and some degree of constipation. The pain is in the right mid and upper abdomen and a CT scan, which showed a picture of colitis involving the ascending colon and transverse colon. There was also some report of foreign body and some fluid in the left inguinal area status post patient having had mesh plug repair of inguinal hernia on 03/15/2019. Otherwise, overnight she has not had any nausea or vomiting per se. PHYSICAL EXAMINATION: VITAL SIGNS: Afebrile with stable vital signs. ABDOMEN: Somewhat distended. She has some mild discomfort in the right mid and upper abdomen. The left inguinal area was examined, this was soft and nontender with no signs of any inflammation, so I think what we are seeing in the bladder are simply postoperative changes as far as the CT scan goes. LABORATORY DATA: A normal white count, otherwise unremarkable. IMPRESSION: The patient had probable colitis involving ascending colon and hepatic flexure of colon. PLAN: The plan will be to proceed with a colonoscopy prep today. We will get some stool for C and S, WBC, O and P today. She has not had any loose stools so C difficile enterotoxin would not be indicated. Recheck some labs in the morning and proceed with a colonoscopy with biopsies as indicated tomorrow. The potential risks of that procedure including bleeding and perforation were reviewed, and the patient wishes to proceed. Lisandro Villarreal MD /[id number]
--- NOTE | 2019-03-25 12:44 | PN ---
DATE OF SERVICE: 03/25/2019 The patient underwent a colonoscopy this morning, which showed 2 separate findings. In the sigmoid colon roughly 20 cm in from the dentate line, the patient had a focal diverticulitis with purulence, was noted to be coming out of the diverticula with some surrounding redness and edema of the colon wall. More proximally beginning in the hepatic flexure and extending into the ascending colon, there was quite a patchy colitis. This was covered with fibrinous exudate. No blood or bleeding was seen at this time. The biopsies of this were obtained and cultures of the stool were also obtained intraoperatively and are pending. We did give the patient a dose of meropenem after identification of the diverticulitis as further manipulation of the colon across that area will likely result in some bacteremia, and she did not have any reaction to that given the penicillin that she was noted to have. At this point, we will have her on full liquid diet and start meropenem q.6 hours in addition to the ceftazidime that Dr. Gonzalez started and then Dr. Gonzalez will be treating the patient from that point forward specifically for the colitis. Lisandro Villarreal MD /[id number]
[2019-03-25] MEDS: Cyclobenzaprine 10 MG Tab PO PRN (15:56)
[2019-03-25] MEDS: Dextrose 5%-Lactated Ringers 1,000 ML IV SCH (15:56)
[2019-03-26] MEDS: HYDROmorphone 2 MG Tab PO PRN ×5 (02:38→22:04)
[2019-03-26] MEDS: Dextrose 5%-Lactated Ringers 1,000 ML IV SCH (02:39)
[2019-03-26] MEDS: Meropenem 500 MG in Sodium Chloride 0.9% 50 ML IV SCH ×4 (04:39→21:18)
[2019-03-26] MEDS: Pantoprazole 40 MG Tab.CR PO SCH ×2 (08:04→16:00)
[2019-03-26] MEDS: Escitalopram 20 MG Tab PO SCH (08:04)
[2019-03-26] MEDS: Gabapentin 300 MG Cap PO SCH ×3 (08:04→21:17)
[2019-03-26] MEDS: Lactobacillus Rhamnosus GG (Probiotic) Cap PO SCH ×2 (08:04→21:17)
[2019-03-26] MEDS: cycloSPORINE Ophth Drops U/D Box of 30 EYEBOTH SCH ×2 (08:05→21:18)
--- NOTE | 2019-03-26 08:12 | PN ---
DATE OF SERVICE: 03/26/2019 SUBJECTIVE: Maylin continues to have a little bit of abdominal pain. The right side is worse than the left. She was started on a full liquid diet yesterday and meropenem, and had one BM. REVIEW OF SYSTEMS: Remainder of review of systems negative for any pertinent positives and negatives. OBJECTIVE: GENERAL: Maylin Rodarte is a pleasant 58-year-old female. VITAL SIGNS: TPR is 98.8, 70, 18, blood pressure 152/74. HEENT: Negative. NECK: Supple. HEART: Regular rate and rhythm. LUNGS: Clear. ABDOMEN: Laparoscopic incisions for hernia look good, left inguinal hernia. Steri-Strip was removed and healing well. She remains to have a little bit of right lower quadrant abdominal pain. EXTREMITIES: Without peripheral edema. SKIN: Clear. ASSESSMENT: 1. Right colitis. 2. Left diverticulitis. PLAN: 1. Dr. Castro to discuss case with Lisandro Villarreal MD. Advance diet to GI low-fiber soft diet. 2. We will evaluate p.r.n. or in a.m. 3. Discharge per Clinton Castro MD. Piper Montoya PA-C /[id number]
[2019-03-26] MEDS: HYDROmorphone 1 MG/ML Syringe IVPUSH PRN ×3 (09:30→23:40)
[2019-03-26] MEDS: Cyclobenzaprine 10 MG Tab PO PRN ×2 (13:44→19:40)
--- NOTE | 2019-03-26 14:23 | PCM.PN ---
- General Info Date of Service: 03/26/19 Subjective Update: Ms. Rodarte has been stable over the last 24 hours. White blood cell count is normal and she has remained afebrile with good vital signs. Tolerating current diet and has been able to ambulate in the hallways. Continues to experience left lower quadrant abdominal pain which she describes as moderate. - Review of Systems General: Denies: Fever, Weakness, Chills Pulmonary: Reports: No Symptoms Cardiovascular: Reports: No Symptoms Gastrointestinal: Reports: Abdominal Pain. Denies: Constipation, Diarrhea, Hematochezia, Melena, Nausea, Vomiting - Patient Data Vitals - Most Recent: Last Vital Signs Temp 98.6 F 03/26/19 11:20 Pulse 72 03/26/19 11:20 Resp 16 03/26/19 11:20 BP 99/74 03/26/19 11:20 Pulse Ox 93 L 03/26/19 11:20 Weight - Most Recent: 202 lb I&O - Last 24 Hours: Intake & Output 03/25/19 03/26/19 03/26/19 22:59 06:59 14:59 Intake Total 1498 1222 1220 Output Total 1200 1000 700 Balance 298 222 520 Castro Results Last 24 Hours: Microbiology 03/25/19 08:48 Stool Culture - Preliminary Stool / Feces - Stool, Liquid NORMAL ENTERIC BALDOMERO 1 DAY 03/25/19 08:36 Clostridioides difficile (PCR) - Final Stool / Feces - Stool, Liquid 03/25/19 08:36 Stool for WBCs - Final Stool / Feces - Stool, Liquid NO WBC SEEN REFERENCE RANGE: NO WBC SEEN Med Orders - Current: Current Medications Acetaminophen (Tylenol) 650 mg PO Q4H PRN PRN Reason: Pain (Mild 1-3)/fever Last Admin: 03/24/19 10:32 Dose: 650 mg Albuterol (Proventil Neb Soln) 2.5 mg NEB Q4H PRN PRN Reason: Shortness Of Breath/wheezing Amitriptyline HCl (Elavil) 50 mg PO BEDTIME [facility] Last Admin: 03/25/19 21:01 Dose: 50 mg Cyclobenzaprine HCl (Flexeril) 10 mg PO TID PRN PRN Reason: Muscle Spasm Last Admin: 03/26/19 13:44 Dose: 10 mg Cyclosporine (Restasis) 1 each EYEBOTH BID [facility] Last Admin: 03/26/19 08:05 Dose: 1 drop Escitalopram Oxalate (Lexapro) 20 mg PO DAILY [facility] Last Admin: 03/26/19 08:04 Dose: 20 mg Gabapentin (Neurontin) 900 mg PO TID [facility] Last Admin: 03/26/19 13:44 Dose: 900 mg Hydromorphone HCl (Dilaudid) 1 mg IVPUSH Q2H PRN PRN Reason: Pain (severe 7-10) Last Admin: 03/26/19 09:30 Dose: 1 mg Hydromorphone HCl (Dilaudid) 2 mg PO Q3H PRN PRN Reason: Pain (moderate 4-6) Last Admin: 03/26/19 13:44 Dose: 2 mg Meropenem 500 mg/ Sodium (Chloride) 50 mls @ 100 mls/hr IV Q6H [facility] Last Admin: 03/26/19 10:16 Dose: 100 mls/hr Lactobacillus Rhamnosus (Culturelle) 1 cap PO BID [facility] Last Admin: 03/26/19 08:04 Dose: 1 cap Lorazepam (Ativan) 0.5 mg PO Q6H PRN PRN Reason: Anxiety Lorazepam (Ativan) 0.5 mg IVPUSH Q4H PRN PRN Reason: Nausea/Vomiting Magnesium Hydroxide (Milk Of Magnesia) 30 ml PO Q12H PRN PRN Reason: Constipation Last Admin: 03/23/19 17:54 Dose: 30 ml Ondansetron HCl (Zofran Odt) 4 mg PO Q6H PRN PRN Reason: Nausea able to take PO Last Admin: 03/23/19 21:19 Dose: 4 mg Ondansetron HCl (Zofran) 4 mg IV Q6H PRN PRN Reason: Nausea/Vomiting Last Admin: 03/24/19 12:13 Dose: 4 mg Pantoprazole Sodium (Protonix) 40 mg PO BIDAC [facility] Last Admin: 03/26/19 08:04 Dose: 40 mg Prazosin HCl (Minpress) 1 mg PO BEDTIME PRN PRN Reason: Insomnia Last Admin: 03/24/19 21:31 Dose: 1 mg Senna/Docusate Sodium (Senna Plus) 1 tab PO BID PRN PRN Reason: Constipation Sodium Chloride (Saline Flush) 10 ml FLUSH ASDIRECTED PRN PRN Reason: Keep Vein Open Last Admin: 03/23/19 11:57 Dose: 10 ml Discontinued Medications Bisacodyl (Dulcolax) 10 mg PO ONETIME ONE Stop: 03/24/19 10:01 Last Admin: 03/24/19 10:31 Dose: 10 mg Bisacodyl (Dulcolax) 10 mg PO ONETIME ONE Stop: 03/24/19 20:01 Last Admin: 03/24/19 19:48 Dose: Not Given Fentanyl (Sublimaze) 50 mcg IVPUSH ONETIME ONE Stop: 03/23/19 10:51 Last Admin: 03/23/19 11:33 Dose: 50 mcg Fentanyl (Sublimaze) 50 mcg IVPUSH ONETIME ONE Stop: 03/23/19 14:04 Last Admin: 03/23/19 14:16 Dose: 50 mcg Fentanyl (Sublimaze) Confirm Administered Dose 100 mcg .ROUTE .STK-MED ONE Stop: 03/25/19 07:24 Hydromorphone HCl (Dilaudid) 1 mg IVPUSH ONETIME ONE Stop: 03/23/19 16:34 Last Admin: 03/23/19 16:42 Dose: 1 mg Lactated Ringer's (Ringers, Lactated) 1,000 mls @ 999 mls/hr IV ASDIRECTED [facility] Last Admin: 03/23/19 11:33 Dose: 999 mls/hr Sodium Chloride (Normal Saline) 81 mls @ 3 mls/sec IV ASDIRECTED [facility] Stop: 03/23/19 14:00 Last Admin: 03/23/19 11:55 Dose: 3 mls/sec Lactated Ringer's (Ringers, Lactated) 1,000 mls @ 250 mls/hr IV BOLUS ONE Stop: 03/23/19 16:47 Last Admin: 03/23/19 12:53 Dose: 250 mls/hr Ceftazidime 1 gm/ Sodium (Chloride) 50 mls @ 100 mls/hr IV ONETIME ONE Stop: 03/23/19 14:13 Last Admin: 03/23/19 14:09 Dose: 100 mls/hr Ceftazidime 1 gm/ Sodium (Chloride) 50 mls @ 100 mls/hr IV Q8H [facility] Last Admin: 03/25/19 05:21 Dose: 100 mls/hr Potassium Chloride/Sodium Chloride (Normal Saline With 20 Meq Kcl) 1,000 mls @ 125 mls/hr IV ASDIRECTED [facility] Last Admin: 03/24/19 02:05 Dose: 125 mls/hr Dextrose/Lactated Ringer's (Dextrose 5%-Lactated Ringers) 1,000 mls @ 100 mls/ hr IV ASDIRECTED [facility] Last Admin: 03/26/19 02:39 Dose: 100 mls/hr Iopamidol (Isovue-300 (61%)) 136 ml IV . DIRECTED ISABEL Stop: 03/23/19 14:00 Last Admin: 03/23/19 11:55 Dose: 123 ml Meropenem (Merrem) Confirm Administered Dose 500 mg .ROUTE .STK-MED ONE Stop: 03/25/19 07:43 Midazolam HCl (Versed 1 Mg/Ml) Confirm Administered Dose 2 mg .ROUTE .STK-MED ONE Stop: 03/25/19 07:24 Ondansetron HCl (Zofran) 4 mg IVPUSH ONETIME ONE Stop: 03/23/19 10:51 Last Admin: 03/23/19 11:33 Dose: 4 mg Polyethylene Glycol (Miralax) 238 gm PO ONETIME ONE Stop: 03/24/19 17:01 Last Admin: 03/24/19 16:58 Dose: 238 gm Propofol (Diprivan 20 Ml) Confirm Administered Dose 200 mg .ROUTE .STK-MED ONE Stop: 03/25/19 07:23 Propofol (Diprivan 20 Ml) Confirm Administered Dose 200 mg .ROUTE .STK-MED ONE Stop: 03/25/19 07:47 Sodium Chloride (Saline Flush) 10 ml FLUSH ONETIME ONE Stop: 03/23/19 11:17 Last Admin: 03/23/19 11:33 Dose: 10 ml - Exam Quality Assessment: DVT Prophylaxis General: Alert, Oriented, Cooperative, Moderate Distress Lungs: Clear to Auscultation, Normal Respiratory Effort Cardiovascular: Regular Rate, Regular Rhythm GI/Abdominal Exam: Soft, No Organomegaly, Tender. No: Distended, Guarding, Rigid, Rebound Extremities: Non-Tender, No Pedal Edema - Problem List Review Problem List Initiated/Reviewed/Updated: Yes - My Orders Last 24 Hours: My Active Orders 03/26/19 12:59 Convert IV to Saline Lock [OM.PC] Routine - Plan Plan:: ASSESSMENT AND PLAN - Diverticulitis-felt to represent most likely cause of her ongoing symptoms and pain. He is feeling better but continues to experience left lower quadrant abdominal pain area -Meropenem -Pain control -Surgical follow-up Dr. Villarreal -Consider repeat CT scan if she continues to experience left lower quadrant abdominal pain -Continue probiotic therapy Chronic pain-stable at this time. -Continue usual medications Depression with anxiety-stable at this time. -Continue home medications Maintenance issues - - DVT prophylaxis - mechanical in case she needs a procedure - GI prophylaxis -PPI - Nutrition -full liquids Disposition -I would anticipate discharge home after the hospital stay
[2019-03-26] MEDS: Acetaminophen 325 MG Tab PO PRN (17:40)
[2019-03-27] MEDS: Meropenem 500 MG in Sodium Chloride 0.9% 50 ML IV SCH ×4 (04:15→21:45)
[2019-03-27] MEDS: HYDROmorphone 2 MG Tab PO PRN ×5 (04:21→23:17)
[2019-03-27] MEDS ORDERED: Iohexol 647 MG/ML 10 ML SDV PO SCH (08:30)
[2019-03-27] MEDS ORDERED: Iohexol 300 MG/ML 30 ML Bottle PO SCH (09:15)
[2019-03-27] MEDS: cycloSPORINE Ophth Drops U/D Box of 30 EYEBOTH SCH ×2 (09:24→21:45)
[2019-03-27] MEDS ORDERED: Sodium Chloride 0.9% 10 ML SDV FLUSH ONE (10:23)
[2019-03-27] MEDS ORDERED: Iopamidol 612 MG/ML 30 ML SDV PO ONE (10:23)
[2019-03-27] MEDS ORDERED: Sodium Chloride 0.9% 80 ML IV ONE (10:23)
[2019-03-27] MEDS ORDERED: Iopamidol 612 MG/ML 150 ML Bottle IV SCH (10:30)
[2019-03-27] MEDS: Sodium Chloride 0.9% 10 ML Syringe FLUSH PRN (11:24)
[2019-03-27] MEDS: Escitalopram 20 MG Tab PO SCH (11:32)
[2019-03-27] MEDS: Lactobacillus Rhamnosus GG (Probiotic) Cap PO SCH ×2 (11:32→21:44)
[2019-03-27] MEDS: Gabapentin 300 MG Cap PO SCH ×4 (11:32→21:44)
[2019-03-27] MEDS: Pantoprazole 40 MG Tab.CR PO SCH ×2 (11:32→17:14)
[2019-03-27] MEDS: HYDROmorphone 1 MG/ML Syringe IVPUSH PRN ×2 (11:33→19:38)
--- NOTE | 2019-03-27 12:16 | CRLCT ---
INDICATION: Abdominal pain. Left lower quadrant diverticulitis. Colitis. TECHNIQUE: CT abdomen and pelvis acquired with 138 cc Isovue-300 IV and oral contrast. COMPARISON: March 23, 2019. FINDINGS: Lower chest: Unremarkable. Liver: Normal in caliber and attenuation. No masses. Gallbladder and bile ducts: Post cholecystectomy. Pancreas: Unremarkable. Spleen: Normal in caliber. No masses. Adrenal glands: Unremarkable. No masses. Kidneys: Normal in caliber. No masses. GI tract: Previously seen colitis in the proximal colon has resolved. Minimal wall thickening is present in the splenic flexure, descending and sigmoid colon. Small bowel is normal in caliber and appearance. Post appendectomy. Vasculature: Unremarkable. Mesenteric arteries are patent. Lymph nodes: No lymphadenopathy. Abdominal wall/Omentum/Peritoneum: Again demonstrated are postoperative changes from a left inguinal hernia repair. 5 x 3 x 3 cm fluid collection with internal gas at the orifice of the left inguinal canal is not significantly changed. Edema in the subcutaneous tissues near the hernia repair is also unchanged. Pelvic organs: Unremarkable. Bones: No suspicious bone lesions. IMPRESSION: 1. Stable postoperative changes in the left inguinal region including a 5 x 3 x 3 cm fluid collection with air internal to the inguinal canal orifice. 2. Improved colitis. 3. No new abnormality. Dictated by Alberto Norman MD @ 03/27/2019 12:13:45 PM Dictated by: Alberto Norman MD @ 03/27/2019 12:13:54 (Electronically Signed)
--- NOTE | 2019-03-27 13:24 | PN ---
DATE OF SERVICE: 03/27/2019 SUBJECTIVE: Maylin remains to report left abdominal pain. She is using Dilaudid every 4 hours for pain. BM last was on 03/26/2019. Temperature max in the past 24 hours was 99. Oral intake 2520, urine output 2800. REVIEW OF SYSTEMS: Remainder of review of systems negative for any pertinent positives and negatives. OBJECTIVE: GENERAL: Maylin Rodarte is a 58-year-old female. She is alert and orientated. VITAL SIGNS: TPR is 97.4, 74, 18. Blood pressure 136/69. HEENT: Negative. NECK: Supple. HEART: Regular rate and rhythm. LUNGS: Clear. ABDOMEN: Slightly distended. Tenderness is noted in the left lower quadrant. ASSESSMENT: 1. Right colitis. 2. Left diverticulitis. PLAN: Check CT of abdomen and pelvis with oral and IV contrast and use 100 mL of water- soluble contrast in rectum to view the lower colon. To notify Lisandro Villarreal MD, after CT is completed and to have the radiologist read CT scan stat. We will evaluate p.r.n. or in a.m. Piper Montoya PA-C /[id number]
[2019-03-27] MEDS: Acetaminophen 325 MG Tab PO PRN ×3 (13:41→23:16)
--- NOTE | 2019-03-27 16:41 | PCM.PN ---
- General Info Date of Service: 03/27/19 Subjective Update: Ms. Rodarte continues to experience left lower quadrant abdominal pain. Vital signs have remained stable and she has been afebrile. CT scan of the abdomen and pelvis was repeated today, fluid collection left lower quadrant is stable in size from previous CT scan. Functional Status: Reports: Tolerating Diet, Ambulating, Urinating - Review of Systems General: Denies: Fever, Chills Pulmonary: Reports: No Symptoms Cardiovascular: Reports: No Symptoms Gastrointestinal: Reports: Abdominal Pain. Denies: Constipation, Diarrhea, Difficulty Swallowing, Nausea, Vomiting - Patient Data Vitals - Most Recent: Last Vital Signs Temp 98.6 F 03/27/19 14:59 Pulse 74 03/27/19 14:59 Resp 16 03/27/19 14:59 BP 137/59 L 03/27/19 14:59 Pulse Ox 95 03/27/19 11:35 Weight - Most Recent: 202 lb I&O - Last 24 Hours: Intake & Output 03/27/19 03/27/19 03/27/19 06:59 14:59 22:59 Intake Total 350 Output Total 500 1600 Balance -150 -1600 Castro Results Last 24 Hours: Microbiology 03/25/19 08:48 Stool Culture - Preliminary Stool / Feces - Stool, Liquid NORMAL ENTERIC BALDOMERO 1 DAY Shiga Toxin I - Final NEGATIVE FOR SHIGA TOXIN 1 Shiga Toxin II - Final NEGATIVE FOR SHIGA TOXIN 2 REFERENCE RANGE: NEGATIVE Med Orders - Current: Current Medications Acetaminophen (Tylenol) 650 mg PO Q4H PRN PRN Reason: Pain (Mild 1-3)/fever Last Admin: 03/27/19 13:41 Dose: 650 mg Albuterol (Proventil Neb Soln) 2.5 mg NEB Q4H PRN PRN Reason: Shortness Of Breath/wheezing Amitriptyline HCl (Elavil) 50 mg PO BEDTIME [facility] Last Admin: 03/26/19 21:18 Dose: 50 mg Cyclobenzaprine HCl (Flexeril) 10 mg PO TID PRN PRN Reason: Muscle Spasm Last Admin: 03/26/19 19:40 Dose: 10 mg Cyclosporine (Restasis) 1 each EYEBOTH BID [facility] Last Admin: 03/27/19 09:24 Dose: 1 drop Escitalopram Oxalate (Lexapro) 20 mg PO DAILY [facility] Last Admin: 03/27/19 11:32 Dose: 20 mg Gabapentin (Neurontin) 900 mg PO TID [facility] Last Admin: 03/27/19 13:36 Dose: 900 mg Hydromorphone HCl (Dilaudid) 1 mg IVPUSH Q2H PRN PRN Reason: Pain (severe 7-10) Last Admin: 03/27/19 11:33 Dose: 1 mg Hydromorphone HCl (Dilaudid) 2 mg PO Q3H PRN PRN Reason: Pain (moderate 4-6) Last Admin: 03/27/19 13:41 Dose: 2 mg Meropenem 500 mg/ Sodium (Chloride) 50 mls @ 100 mls/hr IV Q6H [facility] Last Admin: 03/27/19 10:03 Dose: 100 mls/hr Lactobacillus Rhamnosus (Culturelle) 1 cap PO BID [facility] Last Admin: 03/27/19 11:32 Dose: 1 cap Lorazepam (Ativan) 0.5 mg PO Q6H PRN PRN Reason: Anxiety Lorazepam (Ativan) 0.5 mg IVPUSH Q4H PRN PRN Reason: Nausea/Vomiting Magnesium Hydroxide (Milk Of Magnesia) 30 ml PO Q12H PRN PRN Reason: Constipation Last Admin: 03/23/19 17:54 Dose: 30 ml Ondansetron HCl (Zofran Odt) 4 mg PO Q6H PRN PRN Reason: Nausea able to take PO Last Admin: 03/23/19 21:19 Dose: 4 mg Ondansetron HCl (Zofran) 4 mg IV Q6H PRN PRN Reason: Nausea/Vomiting Last Admin: 03/24/19 12:13 Dose: 4 mg Pantoprazole Sodium (Protonix) 40 mg [facility] Last Admin: 03/27/19 11:32 Dose: 40 mg Prazosin HCl (Minpress) 1 mg PO BEDTIME PRN PRN Reason: Insomnia Last Admin: 03/24/19 21:31 Dose: 1 mg Senna/Docusate Sodium (Senna Plus) 1 tab PO BID PRN PRN Reason: Constipation Sodium Chloride (Saline Flush) 10 ml FLUSH ASDIRECTED PRN PRN Reason: Keep Vein Open Last Admin: 03/27/19 11:24 Dose: 10 ml Discontinued Medications Bisacodyl (Dulcolax) 10 mg PO ONETIME ONE Stop: 03/24/19 10:01 Last Admin: 03/24/19 10:31 Dose: 10 mg Bisacodyl (Dulcolax) 10 mg PO ONETIME ONE Stop: 03/24/19 20:01 Last Admin: 03/24/19 19:48 Dose: Not Given Fentanyl (Sublimaze) 50 mcg IVPUSH ONETIME ONE Stop: 03/23/19 10:51 Last Admin: 03/23/19 11:33 Dose: 50 mcg Fentanyl (Sublimaze) 50 mcg IVPUSH ONETIME ONE Stop: 03/23/19 14:04 Last Admin: 03/23/19 14:16 Dose: 50 mcg Fentanyl (Sublimaze) Confirm Administered Dose 100 mcg .ROUTE .STK-MED ONE Stop: 03/25/19 07:24 Hydromorphone HCl (Dilaudid) 1 mg IVPUSH ONETIME ONE Stop: 03/23/19 16:34 Last Admin: 03/23/19 16:42 Dose: 1 mg Lactated Ringer's (Ringers, Lactated) 1,000 mls @ 999 mls/hr IV ASDIRECTED [facility] Last Admin: 03/23/19 11:33 Dose: 999 mls/hr Sodium Chloride (Normal Saline) 81 mls @ 3 mls/sec IV ASDIRECTED [facility] Stop: 03/23/19 14:00 Last Admin: 03/23/19 11:55 Dose: 3 mls/sec Lactated Ringer's (Ringers, Lactated) 1,000 mls @ 250 mls/hr IV BOLUS ONE Stop: 03/23/19 16:47 Last Admin: 03/23/19 12:53 Dose: 250 mls/hr Ceftazidime 1 gm/ Sodium (Chloride) 50 mls @ 100 mls/hr IV ONETIME ONE Stop: 03/23/19 14:13 Last Admin: 03/23/19 14:09 Dose: 100 mls/hr Ceftazidime 1 gm/ Sodium (Chloride) 50 mls @ 100 mls/hr IV Q8H [facility] Last Admin: 03/25/19 05:21 Dose: 100 mls/hr Potassium Chloride/Sodium Chloride (Normal Saline With 20 Meq Kcl) 1,000 mls @ 125 mls/hr IV ASDIRECTED [facility] Last Admin: 03/24/19 02:05 Dose: 125 mls/hr Dextrose/Lactated Ringer's (Dextrose 5%-Lactated Ringers) 1,000 mls @ 100 mls/ hr IV ASDIRECTED [facility] Last Admin: 03/26/19 02:39 Dose: 100 mls/hr Sodium Chloride (Normal Saline) 80 mls @ 3 mls/sec IV ONETIME ONE Stop: 03/27/19 10:24 Last Admin: 03/27/19 11:24 Dose: 3 mls/sec Iohexol (Omnipaque) 30 ml PO . DIRECTED ISABEL Stop: 03/27/19 09:16 Last Admin: 03/27/19 09:14 Dose: 30 ml Iopamidol (Isovue-300 (61%)) 136 ml IV . DIRECTED ISABEL Stop: 03/23/19 14:00 Last Admin: 03/23/19 11:55 Dose: 123 ml Iopamidol (Isovue-300 (61%)) 30 ml PO ASDIRECTED ONE Stop: 03/27/19 10:24 Last Admin: 03/27/19 11:25 Dose: 30 ml Iopamidol (Isovue-300 (61%)) 138 ml IV . DIRECTED ISABEL Stop: 03/27/19 10:31 Last Admin: 03/27/19 11:24 Dose: 138 ml Meropenem (Merrem) Confirm Administered Dose 500 mg .ROUTE .STK-MED ONE Stop: 03/25/19 07:43 Midazolam HCl (Versed 1 Mg/Ml) Confirm Administered Dose 2 mg .ROUTE .STK-MED ONE Stop: 03/25/19 07:24 Ondansetron HCl (Zofran) 4 mg IVPUSH ONETIME ONE Stop: 03/23/19 10:51 Last Admin: 03/23/19 11:33 Dose: 4 mg Polyethylene Glycol (Miralax) 238 gm PO ONETIME ONE Stop: 03/24/19 17:01 Last Admin: 03/24/19 16:58 Dose: 238 gm Propofol (Diprivan 20 Ml) Confirm Administered Dose 200 mg .ROUTE .STK-MED ONE Stop: 03/25/19 07:23 Propofol (Diprivan 20 Ml) Confirm Administered Dose 200 mg .ROUTE .STK-MED ONE Stop: 03/25/19 07:47 Sodium Chloride (Saline Flush) 10 ml FLUSH ONETIME ONE Stop: 03/23/19 11:17 Last Admin: 03/23/19 11:33 Dose: 10 ml Sodium Chloride (Normal Saline) 10 ml FLUSH ONETIME ONE Stop: 03/27/19 10:24 Last Admin: 03/27/19 12:20 Dose: Not Given - Exam Quality Assessment: DVT Prophylaxis General: Alert, Oriented, Cooperative, Moderate Distress Lungs: Clear to Auscultation, Normal Respiratory Effort Cardiovascular: Regular Rate, Regular Rhythm, No Murmurs GI/Abdominal Exam: Soft, No Organomegaly, Tender. No: Distended, Guarding, Rigid, Rebound Extremities: Non-Tender, No Pedal Edema Sepsis Event Note - Evaluation Sepsis Screening Result: No Definite Risk - Focused Exam Vital Signs: Vital Signs Temp Pulse Resp BP Pulse Ox 03/27/19 14:59 98.6 F 74 16 137/59 L 03/27/19 11:35 99.3 F 72 16 120/56 L 95 03/27/19 07:16 97.8 F 67 16 138/83 96 Date Exam was Performed: 03/27/19 Time Exam was Performed: 16:38 - Problem List Review Problem List Initiated/Reviewed/Updated: Yes - My Orders Last 24 Hours: My Active Orders 03/28/19 05:00 CBC WITH AUTO DIFF [HEME] Timed COMPREHENSIVE METABOLIC PN,CMP [CHEM] Timed 03/28/19 05:11 CRP [C-REACTIVE PROTEIN] [CHEM] AM - Plan Plan:: ASSESSMENT AND PLAN - Diverticulitis-felt to represent most likely cause of her ongoing symptoms and pain. She is feeling better but continues to experience left lower quadrant abdominal pain. Followup CT scan shows fluid collection left lower quadrant to be stable in size -Meropenem -Pain control -Surgical follow-up Dr. Villarreal -Continue probiotic therapy Chronic pain-stable at this time. -Continue usual medications Depression with anxiety-stable at this time. -Continue home medications Maintenance issues - - DVT prophylaxis - mechanical in case she needs a procedure - GI prophylaxis -PPI - Nutrition -full liquids Disposition -I would anticipate discharge home after the hospital stay
[2019-03-28] MEDS: Acetaminophen 325 MG Tab PO PRN ×4 (02:51→15:43)
[2019-03-28] MEDS: HYDROmorphone 2 MG Tab PO PRN ×4 (02:51→19:50)
[2019-03-28] MEDS: Meropenem 500 MG in Sodium Chloride 0.9% 50 ML IV SCH ×4 (03:00→21:23)
[2019-03-28] MEDS: Pantoprazole 40 MG Tab.CR PO SCH ×2 (08:05→15:44)
--- NOTE | 2019-03-28 09:04 | PN ---
DATE OF SERVICE: 03/28/2019 SUBJECTIVE: Maylin continues to have that left lower quadrant pain anywhere from a 6 to 10 out of a pain scale of 10. Vital signs have been stable. Afebrile. Oral intake 2180, urine output 2900, and she had 2 bowel movements on 03/27/19. OBJECTIVE: HEENT: Negative. NECK: Supple. HEART: Regular rate and rhythm. LUNGS: Clear. ABDOMEN: Tenderness in the left lower quadrant. Distention is noted, but the abdomen is soft. EXTREMITIES: Negative. ASSESSMENT: 1. Right colitis. 2. Left diverticulitis. PLAN: N.p.o. after midnight. Check CBC, CMP, and phos in a.m. If no improvement in pain, the patient will be scheduled for a left colon resection in a.m. We will evaluate p.r.n. or in a.m. Piper Montoya PA-C /[id number]
[2019-03-28] MEDS: Lactobacillus Rhamnosus GG (Probiotic) Cap PO SCH ×2 (09:43→20:43)
[2019-03-28] MEDS: Escitalopram 20 MG Tab PO SCH (09:43)
[2019-03-28] MEDS: Gabapentin 300 MG Cap PO SCH ×3 (09:43→20:43)
[2019-03-28] MEDS: cycloSPORINE Ophth Drops U/D Box of 30 EYEBOTH SCH ×2 (09:43→20:44)
--- NOTE | 2019-03-28 13:40 | PCM.PN ---
- General Info Date of Service: 03/28/19 Subjective Update: Ms. Rodarte continues to experience left lower quadrant abdominal pain. Vital signs have remained stable and she has been afebrile. Currently tolerating a soft diet. Functional Status: Reports: Pain Controlled, Tolerating Diet, Ambulating, Urinating - Review of Systems General: Reports: No Symptoms Pulmonary: Reports: No Symptoms Cardiovascular: Reports: No Symptoms Gastrointestinal: Reports: Abdominal Pain. Denies: Diarrhea, Difficulty Swallowing, Nausea, Vomiting - Patient Data Vitals - Most Recent: Last Vital Signs Temp 98.2 F 03/28/19 11:33 Pulse 84 03/28/19 11:33 Resp 20 03/28/19 11:33 BP 138/82 03/28/19 11:33 Pulse Ox 98 03/28/19 11:33 Weight - Most Recent: 202 lb I&O - Last 24 Hours: Intake & Output 03/27/19 03/28/19 03/28/19 22:59 06:59 14:59 Intake Total 2330 50 650 Output Total 444 553 1044 Balance 1930 -850 -350 Lab Results Last 24 Hours: Laboratory Results - last 24 hr 03/28/19 03/28/19 03/28/19 Range/Units 04:15 04:15 04:15 WBC 5.5 (4.5-11.0) K/uL RBC 3.39 (3.30-5.50) M/uL Hgb 10.2 L (12.0-15.0) g/dL Hct 32.5 L (36.0-48.0) % MCV 96 (80-98) fL MCH 30 (27-31) pg MCHC 31 L (32-36) % Plt Count 416 H (150-400) K/uL Neut % (Auto) 50 (36-66) % Lymph % (Auto) 27 (24-44) % [place] % (Auto) 9 H (2-6) % Eos % (Auto) 13 H (2-4) % Baso % (Auto) 1 (0-1) % Sodium 139 L (140-148) mmol/L Potassium 4.7 (3.6-5.2) mmol/L Chloride 102 (100-108) mmol/L Carbon Dioxide 30 (21-32) mmol/L Anion Gap 11.7 (5.0-14.0) mmol/L BUN 5 L D (7-18) mg/dL Creatinine 0.8 (0.6-1.0) mg/dL Est Cr Clr Drug Dosing 68.97 mL/min Estimated GFR (MDRD) > 60 (>60) Glucose 107 H (74-106) mg/dL Calcium 8.4 L (8.5-10.1) mg/dL Total Bilirubin 0.1 L (0.2-1.0) mg/dL AST 16 (15-37) U/L ALT 27 (12-78) U/L Alkaline Phosphatase 285 H (46-116) U/L C-Reactive Protein 0.96 H (0.0-0.3) mg/dL Total Protein 6.7 (6.4-8.2) g/dL Albumin 2.5 L (3.4-5.0) g/dL Globulin 4.2 H (2.3-3.5) g/dL Albumin/Globulin Ratio 0.6 L (1.2-2.2) Castro Results Last 24 Hours: Microbiology 03/25/19 08:48 Stool Culture - Final Stool / Feces - Stool, Liquid NORMAL ENTERIC BALDOMERO. NO SALMONELLA, SHIGELLA , CAMPYLOBACTER OR E.COLI O157 ISOLATED. Shiga Toxin I - Final NEGATIVE FOR SHIGA TOXIN 1 Shiga Toxin II - Final NEGATIVE FOR SHIGA TOXIN 2 REFERENCE RANGE: NEGATIVE Med Orders - Current: Current Medications Acetaminophen (Tylenol) 650 mg PO Q4H PRN PRN Reason: Pain (Mild 1-3)/fever Last Admin: 03/28/19 11:43 Dose: 650 mg Albuterol (Proventil Neb Soln) 2.5 mg NEB Q4H PRN PRN Reason: Shortness Of Breath/wheezing Amitriptyline HCl (Elavil) 50 mg PO BEDTIME [facility] Last Admin: 03/27/19 21:45 Dose: 50 mg Cyclobenzaprine HCl (Flexeril) 10 mg PO TID PRN PRN Reason: Muscle Spasm Last Admin: 03/26/19 19:40 Dose: 10 mg Cyclosporine (Restasis) 1 each EYEBOTH BID [facility] Last Admin: 03/28/19 09:43 Dose: 1 drop Escitalopram Oxalate (Lexapro) 20 mg PO DAILY [facility] Last Admin: 03/28/19 09:43 Dose: 20 mg Gabapentin (Neurontin) 900 mg PO TID [facility] Last Admin: 12/11/19 13:31 Dose: 900 mg Hydromorphone HCl (Dilaudid) 1 mg IVPUSH Q2H PRN PRN Reason: Pain (severe 7-10) Last Admin: 03/27/19 19:38 Dose: 1 mg Hydromorphone HCl (Dilaudid) 2 mg PO Q3H PRN PRN Reason: Pain (moderate 4-6) Last Admin: 03/28/19 11:42 Dose: 2 mg Meropenem 500 mg/ Sodium (Chloride) 50 mls @ 100 mls/hr IV Q6H [facility] Last Admin: 03/28/19 10:37 Dose: 100 mls/hr Lactobacillus Rhamnosus (Culturelle) 1 cap PO BID [facility] Last Admin: 03/28/19 09:43 Dose: 1 cap Lorazepam (Ativan) 0.5 mg PO Q6H PRN PRN Reason: Anxiety Lorazepam (Ativan) 0.5 mg IVPUSH Q4H PRN PRN Reason: Nausea/Vomiting Magnesium Hydroxide (Milk Of Magnesia) 30 ml PO Q12H PRN PRN Reason: Constipation Last Admin: 03/23/19 17:54 Dose: 30 ml Ondansetron HCl (Zofran Odt) 4 mg PO Q6H PRN PRN Reason: Nausea able to take PO Last Admin: 03/23/19 21:19 Dose: 4 mg Ondansetron HCl (Zofran) 4 mg IV Q6H PRN PRN Reason: Nausea/Vomiting Last Admin: 03/24/19 12:13 Dose: 4 mg [facility]op[facility]ole [facility] Last Admin: 03/28/19 08:05 Dose: 40 mg Prazosin HCl (Minpress) 1 mg PO BEDTIME PRN PRN Reason: Insomnia Last Admin: 03/24/19 21:31 Dose: 1 mg Senna/Docusate Sodium (Senna Plus) 1 tab PO BID PRN PRN Reason: Constipation Sodium Chloride (Saline Flush) 10 ml FLUSH ASDIRECTED PRN PRN Reason: Keep Vein Open Last Admin: 03/27/19 11:24 Dose: 10 ml Discontinued Medications Bisacodyl (Dulcolax) 10 mg PO ONETIME ONE Stop: 03/24/19 10:01 Last Admin: 03/24/19 10:31 Dose: 10 mg Bisacodyl (Dulcolax) 10 mg PO ONETIME ONE Stop: 03/24/19 20:01 Last Admin: 03/24/19 19:48 Dose: Not Given Fentanyl (Sublimaze) 50 mcg IVPUSH ONETIME ONE Stop: 03/23/19 10:51 Last Admin: 03/23/19 11:33 Dose: 50 mcg Fentanyl (Sublimaze) 50 mcg IVPUSH ONETIME ONE Stop: 03/23/19 14:04 Last Admin: 03/23/19 14:16 Dose: 50 mcg Fentanyl (Sublimaze) Confirm Administered Dose 100 mcg .ROUTE .STK-MED ONE Stop: 03/25/19 07:24 Hydromorphone HCl (Dilaudid) 1 mg IVPUSH ONETIME ONE Stop: 03/23/19 16:34 Last Admin: 03/23/19 16:42 Dose: 1 mg Lactated Ringer's (Ringers, Lactated) 1,000 mls @ 999 mls/hr IV ASDIRECTED [facility] Last Admin: 03/23/19 11:33 Dose: 999 mls/hr Sodium Chloride (Normal Saline) 81 mls @ 3 mls/sec IV ASDIRECTED [facility] Stop: 03/23/19 14:00 Last Admin: 03/23/19 11:55 Dose: 3 mls/sec Lactated Ringer's (Ringers, Lactated) 1,000 mls @ 250 mls/hr IV BOLUS ONE Stop: 03/23/19 16:47 Last Admin: 03/23/19 12:53 Dose: 250 mls/hr Ceftazidime 1 gm/ Sodium (Chloride) 50 mls @ 100 mls/hr IV ONETIME ONE Stop: 03/23/19 14:13 Last Admin: 03/23/19 14:09 Dose: 100 mls/hr Ceftazidime 1 gm/ Sodium (Chloride) 50 mls @ 100 mls/hr IV Q8H [facility] Last Admin: 03/25/19 05:21 Dose: 100 mls/hr Potassium Chloride/Sodium Chloride (Normal Saline With 20 Meq Kcl) 1,000 mls @ 125 mls/hr IV ASDIRECTED [facility] Last Admin: 03/24/19 02:05 Dose: 125 mls/hr Dextrose/Lactated Ringer's (Dextrose 5%-Lactated Ringers) 1,000 mls @ 100 mls/ hr IV ASDIRECTED [facility] Last Admin: 03/26/19 02:39 Dose: 100 mls/hr Sodium Chloride (Normal Saline) 80 mls @ 3 mls/sec IV ONETIME ONE Stop: 03/27/19 10:24 Last Admin: 03/27/19 11:24 Dose: 3 mls/sec Iohexol (Omnipaque) 30 ml PO . DIRECTED [facility] Stop: 03/27/19 09:16 Last Admin: 03/27/19 09:14 Dose: 30 ml Iopamidol (Isovue-300 (61%)) 136 ml IV . DIRECTED [facility] Stop: 03/23/19 14:00 Last Admin: 03/23/19 11:55 Dose: 123 ml Iopamidol (Isovue-300 (61%)) 30 ml PO ASDIRECTED ONE Stop: 03/27/19 10:24 Last Admin: 03/27/19 11:25 Dose: 30 ml Iopamidol (Isovue-300 (61%)) 138 ml IV . DIRECTED [facility] Stop: 03/27/19 10:31 Last Admin: 03/27/19 11:24 Dose: 138 ml Meropenem (Merrem) Confirm Administered Dose 500 mg .ROUTE .STK-MED ONE Stop: 03/25/19 07:43 Midazolam HCl (Versed 1 Mg/Ml) Confirm Administered Dose 2 mg .ROUTE .STK-MED ONE Stop: 03/25/19 07:24 Ondansetron HCl (Zofran) 4 mg IVPUSH ONETIME ONE Stop: 03/23/19 10:51 Last Admin: 03/23/19 11:33 Dose: 4 mg Polyethylene Glycol (Miralax) 238 gm PO ONETIME ONE Stop: 03/24/19 17:01 Last Admin: 03/24/19 16:58 Dose: 238 gm Propofol (Diprivan 20 Ml) Confirm Administered Dose 200 mg .ROUTE .STK-MED ONE Stop: 03/25/19 07:23 Propofol (Diprivan 20 Ml) Confirm Administered Dose 200 mg .ROUTE .STK-MED ONE Stop: 03/25/19 07:47 Sodium Chloride (Saline Flush) 10 ml FLUSH ONETIME ONE Stop: 03/23/19 11:17 Last Admin: 03/23/19 11:33 Dose: 10 ml Sodium Chloride (Normal Saline) 10 ml FLUSH ONETIME ONE Stop: 03/27/19 10:24 Last Admin: 03/27/19 12:20 Dose: Not Given - Exam General: Alert, Oriented, Cooperative, Moderate Distress Lungs: Clear to Auscultation, Normal Respiratory Effort Cardiovascular: Regular Rate, Regular Rhythm, No Murmurs GI/Abdominal Exam: Soft, No Organomegaly, Tender. No: Distended, Guarding, Rigid, Rebound Extremities: Non-Tender, No Pedal Edema Sepsis Event Note - Evaluation Sepsis Screening Result: No Definite Risk - Focused Exam Vital Signs: Vital Signs Temp Pulse Pulse Resp BP Pulse Ox 03/28/19 11:33 98.2 F 84 20 138/82 98 03/28/19 07:28 98.1 F 67 16 153/95 H 97 03/28/19 02:48 97.2 F 66 18 123/62 97 Date Exam was Performed: 03/28/19 Time Exam was Performed: 13:38 - Problem List Review Problem List Initiated/Reviewed/Updated: Yes - Plan Plan:: ASSESSMENT AND PLAN - Diverticulitis-felt to represent most likely cause of her ongoing symptoms and pain. She is feeling better but continues to experience left lower quadrant abdominal pain. Followup CT scan shows fluid collection left lower quadrant to be stable in size -Meropenem -Pain control -Exploratory laparotomy tomorrow -Surgical follow-up Dr. Villarreal -Continue probiotic therapy Chronic pain-stable at this time. -Continue usual medications Depression with anxiety-stable at this time. -Continue home medications Maintenance issues - - DVT prophylaxis - mechanical in case she needs a procedure - GI prophylaxis -PPI - Nutrition -full liquids Disposition -I would anticipate discharge home after the hospital stay
[2019-03-28] MEDS: HYDROmorphone 1 MG/ML Syringe IVPUSH PRN (15:39)
[2019-03-28] MEDS: Cyclobenzaprine 10 MG Tab PO PRN (15:42)
[2019-03-29] MEDS: HYDROmorphone 2 MG Tab PO PRN ×2 (02:54→07:27)
[2019-03-29] MEDS: Meropenem 500 MG in Sodium Chloride 0.9% 50 ML IV SCH ×4 (04:09→23:00)
[2019-03-29] MEDS: Lactobacillus Rhamnosus GG (Probiotic) Cap PO SCH ×2 (07:28→08:09)
[2019-03-29] MEDS: Pantoprazole 40 MG Tab.CR PO SCH (07:28)
[2019-03-29] MEDS: Escitalopram 20 MG Tab PO SCH ×2 (07:28→08:09)
[2019-03-29] MEDS: cycloSPORINE Ophth Drops U/D Box of 30 EYEBOTH SCH ×3 (07:29→20:20)
[2019-03-29] MEDS: Gabapentin 300 MG Cap PO SCH ×4 (07:29→20:19)
[2019-03-29] MEDS ORDERED: Ketamine 500 MG/5 ML MDV IV SCH ×3 (07:30→10:30)
[2019-03-29] MEDS ORDERED: Neomycin/Polymyxin B 1 ML, Sodium Chloride 0.9% 750 ML IRR ONE ×2 (09:00)
[2019-03-29] MEDS: HYDROmorphone 1 MG/ML Syringe IVPUSH PRN (10:02)
[2019-03-29] MEDS ORDERED: Propofol 200 MG/20 ML SDV ONE (10:26)
[2019-03-29] MEDS ORDERED: Rocuronium 50 MG/5 ML Vial ONE (10:26)
[2019-03-29] MEDS ORDERED: Ondansetron 4 MG/2 ML SDV ONE (10:26)
[2019-03-29] MEDS ORDERED: Neostigmine Methylsulfate 1 MG/ML 5 ML Syringe ONE (10:26)
[2019-03-29] MEDS ORDERED: Dexamethasone 4 MG/ML SDV ONE (10:26)
[2019-03-29] MEDS ORDERED: Glycopyrrolate 0.2 MG/ML 5 ML MDV ONE (10:26)
[2019-03-29] MEDS ORDERED: Succinylcholine 200 MG/10 ML MDV ONE (10:26)
[2019-03-29] MEDS ORDERED: fentaNYL 250 MCG/5 ML SDV ONE ×2 (10:26→12:24)
[2019-03-29] MEDS ORDERED: Ketamine 50 MG in Sodium Chloride 0.9% 49.5 ML IV SCH (10:30)
[2019-03-29] MEDS ORDERED: Ropivacaine 46 ML, dexAMETHasone 8 MG, EPINEPHrine 0.4 MG, Sodium Chloride 0.9% 31.6 ML NERVRT SCH ×4 (10:30)
--- NOTE | 2019-03-29 10:38 | PN ---
DATE OF SERVICE: 03/29/2019 SUBJECTIVE: Maylin continues to have that left lower abdominal pain. She did have a bowel movement this morning. States that this does not make any difference with the pain. She has been n.p.o. since midnight. Temperature max of 99.5. Pain she reports is a 6 or 7. REVIEW OF SYSTEMS: Remainder of review of systems negative for any pertinent positives and negatives. OBJECTIVE: GENERAL: Maylin Rodarte is a 58-year-old female, sitting in chair, color pale. VITAL SIGNS: TPR 99.2, 80, 18. Blood pressure 142/82. HEENT: Negative. NECK: Supple. HEART: Regular rate and rhythm. LUNGS: Clear. ABDOMEN: Remains to be slightly distended. Left lower quadrant abdominal pain. EXTREMITIES: Without peripheral edema. ASSESSMENT: 1. Right abdominal colitis. 2. Left diverticulitis. PLAN: 1. Remain n.p.o. 2. Schedule and have consent signed for diagnostic laparotomy with left colon resection, TAP block, ketamine bolus and drip. Case to follow, 03/29/2019, Lisandro Villarreal MD. 3. To give 750 mL enema at 0900. After preoperative evaluation, discussion of possible risks and possible complications. The patient wishes to proceed with surgical procedure. Piper Montoya PA-C /[id number]
[2019-03-29] MEDS ORDERED: cefOXitin 2 GM Vial ONE ×2 (12:42→12:58)
[2019-03-29] MEDS ORDERED: Lactated Ringers 1,000 ML ONE (12:59)
[2019-03-29] MEDS ORDERED: Naloxone 0.4 MG/ML SDV IVPUSH PRN ×2 (13:33→13:36)
[2019-03-29] MEDS ORDERED: Naloxone 0.4 MG/ML SDV IV PRN (13:36)
[2019-03-29] MEDS: HYDROmorphone/Normal Saline 15 MG/30 ML PCA IV PRN (13:42)
[2019-03-29] MEDS ORDERED: hydrOXYzine HCL 100 MG/2 ML SDV IM ONE (13:59)
[2019-03-29] MEDS ORDERED: LORazepam 2 MG/ML SDV IVPUSH PRN (14:55)
[2019-03-29] MEDS ORDERED: Ondansetron 4 MG/2 ML SDV IV PRN (14:58)
[2019-03-29] MEDS ORDERED: Cyclobenzaprine 10 MG Tab PO PRN (15:00)
[2019-03-29] MEDS ORDERED: hydrOXYzine HCL 100 MG/2 ML SDV IM PRN (15:01)
[2019-03-29] MEDS: Dextrose 5%-Lactated Ringers 1,000 ML IV SCH ×2 (15:11→23:00)
[2019-03-29] MEDS ORDERED: Pantoprazole 40 MG Vial IVPUSH SCH (16:00)
[2019-03-29] MEDS: Acetaminophen 500 MG Tab PO SCH ×2 (16:23→23:01)
[2019-03-29] MEDS: Ibuprofen 400 MG Tab PO SCH (20:16)
[2019-03-29] MEDS: Bisacodyl 5 MG Tab PO SCH (20:18)
[2019-03-29] MEDS: Prazosin 1 MG Cap PO SCH (20:19)
[2019-03-30] MEDS: Meropenem 500 MG in Sodium Chloride 0.9% 50 ML IV SCH ×2 (03:26→11:39)
[2019-03-30] MEDS: Acetaminophen 500 MG Tab PO SCH ×4 (03:27→21:34)
[2019-03-30] MEDS: Ibuprofen 400 MG Tab PO SCH ×4 (03:27→19:54)
[2019-03-30] MEDS: HYDROmorphone/Normal Saline 15 MG/30 ML PCA IV PRN ×2 (05:45→22:57)
[2019-03-30] MEDS: Dextrose 5%-Lactated Ringers 1,000 ML IV SCH ×2 (06:15→15:49)
[2019-03-30] MEDS ORDERED: SUMAtriptan 50 MG Tab PO PRN (07:12)
--- NOTE | 2019-03-30 09:10 | PN ---
DATE OF SERVICE: 03/30/2019 SUBJECTIVE: Maylin is postoperative day #1. Her pain has been controlled. Vital signs stable. She is on a clear liquid diet. Oral intake was 860 and urine output was 1150 via Espitia catheter. One ANTHONY drain, it is draining a light red drainage of 135 mL. Using a RECEP for pain control and she states her pain has been controlled. Denies any other associated signs or symptoms. OBJECTIVE: GENERAL: Maylin is a 58-year-old female, alert, orientated, quite talkative. VITAL SIGNS: TPR is 97.8, 81, 17, blood pressure is 120/73. HEENT: Negative. NECK: Supple. HEART: Regular rate and rhythm. LUNGS: Clear. ABDOMEN: Dressings dry and intact. ANTHONY drain as above. EXTREMITIES: Without peripheral edema. ASSESSMENT: Exploratory laparotomy with lysis of adhesions. 1. Rectosigmoid colon resection and coloproctostomy. 2. Drainage of abscess. 3. Mobilization of omentum into the pelvis for persistent sigmoid colon diverticulitis and pericolonic abscess. 4. Date of surgery: 03/29/2019. Surgeon: Lisandro Villarreal MD. PLAN: 1. Decrease IV to 100 mL per hour. 2. Discontinue Espitia catheter. 3. Check CBC, CMP, mag, and phos in a.m. 4. Ambulate 6 times daily as ordered. Continue use of IS. 5. We will evaluate p.r.n. or in a.m. Piper Montoya PA-C /[id number]
[2019-03-30] MEDS: Bisacodyl 5 MG Tab PO SCH ×2 (09:25→21:34)
[2019-03-30] MEDS: cycloSPORINE Ophth Drops U/D Box of 30 EYEBOTH SCH ×2 (09:25→21:36)
[2019-03-30] MEDS: Gabapentin 300 MG Cap PO SCH ×3 (09:25→21:30)
[2019-03-30] MEDS: Pantoprazole 40 MG Tab.CR PO SCH (15:42)
[2019-03-30] MEDS: Prazosin 1 MG Cap PO SCH (21:35)
[2019-03-31] MEDS: Dextrose 5%-Lactated Ringers 1,000 ML IV SCH (01:53)
[2019-03-31] MEDS: Ibuprofen 400 MG Tab PO SCH ×4 (01:53→19:31)
[2019-03-31] MEDS: Acetaminophen 500 MG Tab PO SCH ×4 (05:02→21:32)
[2019-03-31] MEDS ORDERED: Ondansetron 4 MG Tab.DIS PO PRN (06:48)
[2019-03-31] MEDS: HYDROmorphone 2 MG Tab PO PRN ×3 (08:20→21:34)
[2019-03-31] MEDS: Bisacodyl 5 MG Tab PO SCH ×2 (08:30→21:32)
[2019-03-31] MEDS: Gabapentin 300 MG Cap PO SCH ×3 (08:30→21:33)
[2019-03-31] MEDS: Magnesium Oxide 400 MG Tab PO SCH ×2 (08:30→21:33)
[2019-03-31] MEDS: cycloSPORINE Ophth Drops U/D Box of 30 EYEBOTH SCH ×2 (08:31→21:33)
[2019-03-31] MEDS ORDERED: Magnesium Hydroxide 400 MG/5 ML Susp 30 ML Cup PO ONE (13:05)
[2019-03-31] MEDS: Pantoprazole 40 MG Tab.CR PO SCH (15:45)
[2019-03-31] MEDS: Prazosin 1 MG Cap PO SCH (21:36)
[2019-04-01] MEDS: Ibuprofen 400 MG Tab PO SCH ×2 (02:54→07:09)
[2019-04-01] MEDS: HYDROmorphone 2 MG Tab PO PRN ×3 (02:54→11:45)
[2019-04-01] MEDS: Acetaminophen 500 MG Tab PO SCH ×2 (03:01→09:41)
[2019-04-01] MEDS: Gabapentin 300 MG Cap PO SCH (08:44)
[2019-04-01] MEDS: Magnesium Oxide 400 MG Tab PO SCH (08:44)
[2019-04-01] MEDS: Bisacodyl 5 MG Tab PO SCH (08:44)
[2019-04-01] MEDS: cycloSPORINE Ophth Drops U/D Box of 30 EYEBOTH SCH (08:45)
--- NOTE | 2019-04-01 09:17 | DISCH ---
ADMISSION DIAGNOSES: 1. Right upper abdominal pain. 2. Left lower quadrant with CT showing a 6 cm fluid collection consistent with an abscess, left pelvic area near inguinal opening. 3. Chronic obstructive pulmonary disease. 4. Chronic back pain. 5. Fibromyalgia. 6. Migraine headaches. 7. Anxiety. 8. Depression. 9. History of anemia. 10.Body mass index of 33.3. DISCHARGE DIAGNOSIS: Persistent sigmoid colon diverticulitis and pericolonic abscess. PROCEDURE: 1. Colonoscopy with biopsies, 03/26/2019. 2. Exploratory laparotomy with lysis of adhesions. a. Rectosigmoid colon resection and coloproctostomy. b. Drainage of abscess. c. Mobilization of omentum into the pelvis. Date of surgery 03/29/2019. Surgeon, Lisandro Villarreal MD. HISTORY: Maylin Rodarte was hospitalized on 03/23/2019 with right upper quadrant and flank abdominal pain. She was treated with antibiotics and she had a colonoscopy on 03/26/2019. Pain persisted after IV antibiotics, and after preoperative evaluation and discussion of possible risks and possible complications, she wished to proceed with surgical procedure. HOSPITAL COURSE: Surgery was on 03/29/2019. She had no operative complications. On postoperative day #1, her IV was decreased to 100 mL per hour. Espitia catheter was decreased. She was up ambulating, tolerating a clear liquid diet. On postoperative day 2, she was given an additional bowel stimulation. Vital signs were rechecked. IV was saline locked, and she was changed to oral pain medication. She did have 5 bowel movements in the past 24 hours. Diet was advanced to a full liquid and then to a soft. She tolerated it well. The pain was managed, activity was good, oral intake adequate, afebrile. She was ready to be discharged to home on 04/01/2019. PHYSICAL EXAMINATION: GENERAL: Maylin Rodarte is a 58-year-old female. VITAL SIGNS: Height is 5 feet 5 inches, weight is 202 pounds, BMI is 33. TPR is 97.9, 80, 16. Blood pressure 133/77. HEENT: Negative. NECK: Supple. HEART: Regular rate and rhythm. LUNGS: Clear. ABDOMEN: Aquacel dressing was removed. ANTHONY drain will be removed prior to discharge. Santiago are intact and there is some bruising noted around the staple line, but it is soft, not red, and minimally tender. EXTREMITIES: Without peripheral edema. DISPOSITION: Discharged to home. CONDITION: Stable and improving. FOLLOWUP: Followup appointment with Piper Montoya PA-C, on 04/09/2019 at 9 a.m. HOME MEDICATIONS: 1. Dilaudid 2 mg 1 q.6 hours p.r.n. pain #28, emergency fill. The patient had surgery on 03/29/2019. 2. Tylenol 1000 mg every 6 hours. 3. Magnesium oxide 400 mg b.i.d. for 1 month. She is to resume her home medication of: 1. ProAir 1 puff inhalation every 6 hours. 2. Elavil 50 mg oral at bedtime. 3. Cleocin 600 mg as needed 1 hour prior to dental procedure. 4. Flexeril 10 mg 3 times a day p.r.n. muscle spasms. 5. Vitamin D2 50,000 units weekly. 6. Lexapro 20 mg oral daily. 7. Neurontin 900 mg 3 times a day. 8. Ibuprofen 600 mg q.6 hours p.r.n. pain. 9. Ativan 0.5 mg oral q.6 hours p.r.n. anxiety. 10.Lidocaine 5% topical patch p.r.n. pain. 11.Prilosec 20 mg oral twice daily. 12.Prazosin 1 mg oral at bedtime p.r.n. insomnia. 13.Phenergan 25 mg every 6 hours p.r.n. nausea. 14.Imitrex 25 mg oral p.r.n. headache. 15.Senna S 1 oral daily p.r.n. constipation. DIET: GI, soft, low fiber diet. ACTIVITY: No lifting greater than 10 pounds for 6 weeks. Activity, to walk at least 6 times daily inside your home. Driving: Do not drive for 1 week and while on pain medication. Shower/bathing: May shower. DISCHARGE INSTRUCTIONS: Wear abdominal binder for 6 weeks and then as tolerated. Keep operative site clean and dry. Notify provider if any fever, increased pain, nausea and/or vomiting. Use incentive spirometer 10 times every hour while awake.
[2019-04-01 10:34] VITALS: BP 126/52; PULSE 90
--- NOTE | 2019-04-02 09:18 | PN ---
DATE OF SERVICE: 03/31/2019 SUBJECTIVE: Maylin has been up, ambulating. She has been afebrile. Oral intake 4180 and urine output 2625. ANTHONY drain put out 85 mL of a light pink drainage. She would like to change to oral pain medication, stating when she falls asleep she wakes up and it takes her a while to get her pain under control. Currently is not passing any flatus. Afebrile. Labs this morning; hemoglobin 9.1, potassium 3.7, and magnesium is 1.5. REVIEW OF SYSTEMS: Remainder of review of systems negative for any pertinent positives and negatives. OBJECTIVE: GENERAL: Maylin Rodarte is a pleasant 58-year-old female. VITAL SIGNS: TPR from 0400; 97.7, 77, 18. Blood pressure 126/85. HEENT: Negative. NECK: Supple. HEART: Regular rate and rhythm. LUNGS: Clear. ABDOMEN: Aquacel dressing is on. ANTHONY drain intact. Soft, normally tender. No distention. EXTREMITIES: Without peripheral edema. ASSESSMENT: Exploratory laparotomy with lysis of adhesions and: 1. Rectosigmoid colon resection and coloproctostomy. 2. Drainage of abscess. 3. Mobilization of omentum into the pelvis for persistent sigmoid colon diverticulitis and pericolonic abscess. Date of surgery: 03/29/2019. Surgeon: Lisandro Villarreal MD. PLAN: 1. Rx magnesium oxide 400 mg b.i.d. 2. Saline lock IV. 3. Discontinue [employer]. 4. Dilaudid 2 mg 1 to 2 oral q.4 hours p.r.n. pain. 5. Check CBC, CMP, and mag phos in a.m. 6. Continue to use incentive spirometer and ambulate. 7. We will evaluate p.r.n. or in a.m. Piper Montoya PA-C /[id number]
--- NOTE | 2019-04-02 09:27 | DISCH ---
ADDENDUM: Maylin's culture and sensitivity returned Enterococcus casseliflavus, sensitive to vancomycin and ampicillin. The patient has allergic reaction to penicillin and pharmacy consult recommended oral antibiotic of Levaquin or Zyvox. The patient is also allergic to Levaquin. Maylin was sent home with Zyvox orally, and she is to take it for 10 days as directed.
--- NOTE | 2019-04-04 13:44 | OR ---
CORRECTED REPORT DATE OF PROCEDURE: 03/25/2019 SURGEON: Lisandro Villarreal MD PREOPERATIVE DIAGNOSIS: Abdominal pain associated with suspicion for colitis involving ascending and hepatic flexures of colon. POSTOPERATIVE DIAGNOSES: 1. Patchy colitis involving ascending and hepatic flexures of colon. 2. Focal sigmoid colon diverticulitis. OPERATIVE PROCEDURE: Flexible colonoscopy with: 1. Collection of stool for microbiologic workup. 2. Biopsies of areas of colitis involving the hepatic flexure and ascending colon. ANESTHESIA: IV sedation. INDICATIONS FOR PROCEDURE: This is a 58-year-old presenting with some moderate left-sided abdominal pain. CT scan showed what appeared to be an area of colitis involving the ascending colon and hepatic flexure of the colon. Plan was to proceed with flexible colonoscopy with collection of stool for culture along with biopsies as indicated. Potential risks including bleeding and perforation were discussed, and the patient wishes to proceed. DETAILS OF PROCEDURE: The patient was taken to the operating room and placed in a left lateral decubitus position. IV sedation was administered after which the initial digital rectal exam was performed and was unremarkable. Colonoscope was then passed into the rectum. There was some liquid stool present and this was evacuated and sent for a full microbiologic workup. Following this, the colonoscope was then passed eventually to the level of the cecum. The prep was fairly good. Two specific abnormal areas were noted. First in the sigmoid colon, there was an area of probable diverticulitis. There was quite scant diverticular 1 area of purulent drainage, more or less continuously emanating from its orifice. The scope was then eventually passed proximally and the patchy areas of colitis were noted within the hepatic flexure of colon and ascending colon. These were not actively bleeding, but covered with areas of fibrinous exudate. Multiple biopsies were then obtained from those areas and sent for histologic evaluation. The scope was then withdrawn, the above findings reconfirmed, and the procedure then concluded. Intraoperatively while we identified what appeared to be diverticulitis, we then opted to start giving the patient some meropenem. The meropenem will be added to her postprocedure antibiotic regimen as well. Lisandro Villarreal MD /[id number]
--- NOTE | 2019-04-04 14:34 | OR ---
DATE OF PROCEDURE: 03/29/2019 SURGEON: Lisandro Villarreal MD PREOPERATIVE DIAGNOSIS: Persistent sigmoid colon diverticulitis. POSTOPERATIVE DIAGNOSES: 1. Persistent sigmoid colon diverticulitis. 2. Pericolonic abscess. OPERATIVE PROCEDURE: Exploratory laparotomy with lysis of adhesions and: 1. Rectosigmoid resection with coloproctostomy (57746). 2. Drainage of pericolonic abscess (35077). 3. Mobilization of omentum into pelvis (45271). ANESTHESIA: General. ASSISTANTS: 1. Piper Montoya PA-C. 2. Conrado Valle MS-3. INDICATIONS FOR PROCEDURE: This is a 58-year-old female admitted last weekend with picture of both a right-sided colitis and a sigmoid colon diverticulitis, the latter being confirmed with endoscopy. The right-sided pain has dissipated at this point, and it appears that colitis has probably cleared. She continued to however have significant tenderness in the left lower quadrant and then I pulled the CT scan. Continues to show inflammation in that area. Given this, the plan at this point will be to proceed with exploratory laparotomy and sigmoid resection. The diverticulitis is at a level that a primary anastomosis is anticipated. She will receive an antibiotic-containing enema preoperatively. Otherwise, plan will be to proceed with lower midline incision, lysis of any adhesions present that she might have as she is status post previous hysterectomy through that incision and sigmoid resection. The potential risks of the procedure including bleeding, infection, and leaks from the coloproctostomy resulting in a need for a temporary colostomy were gone over as well as the possibility of cardiopulmonary, septic, or hemorrhagic complications leading to , and the patient wishes to proceed. DETAILS OF PROCEDURE: The patient was taken to the operating room and placed in a supine position. After general endotracheal anesthesia was induced, the abdomen was prepped and draped (of note, epidural anesthesia not used in this case due to underlying infection). The lower midline incision was then reused from the umbilicus down to the level of the pelvis. This was carried down through the skin and subcutaneous tissue and through the fascia and peritoneum. There were fairly extensive adhesions between the omentum and the fat laden abdominal wall and some additional small bowel adhesions in the pelvis. These were all freed up, and this then allowed retraction of those structures out of the pelvis. The area of diverticulitis was easily palpated down within the pelvis as a thickened, indurated area. As this was pulled up, some purulence was encountered, and that abscess drained and cultured. Just below that, the rectum became quite soft, and after being pulled from the mesentery, it was divided with a ISRRAEL curved black load. The sigmoid colon just above the area of diverticulitis also was quite soft, and this was divided with a ISRRAEL black load as well, and the mesentery between the 2 points then divided with a series of mesenteric and vascular ISRRAEL loads. A 28 mm EEA stapler was then selected, and a small opening was made in the divided sigmoid colon and the anvil placed within it, and this was re-stapled off again with a purple load and the main body of the stapler was brought up to the apex of the rectal staple line and united with the anvil and firing, thus creating the coloproctostomy. Upon removal of the stapler, double donuts of mucosa were noted within it with the pelvis being flooded with antibiotic-containing saline solution. Colonoscope was then passed, and this showed an intact anastomosis, and no air bubbles were seen upon air insufflation. The scope was then withdrawn. The coloproctostomy was then reinforced with some 3-0 Vicryl seromuscular stitch along with fibrin sealant. The abdomen was irrigated once again with antibiotic-containing saline solution. A single Sheng-Kern drain was taken out through the right mid abdomen, positioned adjacent to the coloproctostomy, and from there, down into the depths of the pelvis, and the omentum was then sutured down into the pelvis behind the urinary bladder so as to displace the small bowel from those surfaces to limit recurrent pelvic small bowel adhesion formation. The midline fascia was then approximated with a #2 Vicryl stitch, subcutaneous tissue with 2 layers of 3-0 Vicryl stitch deep, and fabio for the skin. Bilateral transversus abdominis plane blocks had also been placed earlier in the case. Off the field, the specimen had been opened, and it was noted to have some diverticular disease, but no evidence of any malignancy: Physician technical administrative assistant, Piper Montoya, played an essential role in assisting in this case, helping to position the patient, retract structures as needed, as well as suturing and cutting sutures when indicated. Her presence improved patient safety and decreased operative time. Lisandro Villarreal MD /[id number]
== END 2019-04-01 12:24 | disposition home health service (06) | DRG 331 ==
LOC: JP.ED 09:58 → JP.MS 14:50
PROVIDERS: ADMIT Internal Medicine; ATTEND Hospitalist
PROC: 0DBK8ZX Excision of Ascending Colon, Via Natural or Artificial Opening Endoscopic, Diagnostic (ICD-10-PCS; 2019-03-25)
PROC: 0DBL8ZX Excision of Transverse Colon, Via Natural or Artificial Opening Endoscopic, Diagnostic (ICD-10-PCS; 2019-03-25)
PROC: 0D1N0ZP Bypass Sigmoid Colon to Rectum, Open Approach (ICD-10-PCS; principal; 2019-03-29)
PROC: 0DNW0ZZ Release Peritoneum, Open Approach (ICD-10-PCS; 2019-03-29)
PROC: 0DTP0ZZ Resection of Rectum, Open Approach (ICD-10-PCS; 2019-03-29)
PROC: 0DTN0ZZ Resection of Sigmoid Colon, Open Approach (ICD-10-PCS; 2019-03-29)
PROC: 0D1N0ZP Bypass Sigmoid Colon to Rectum, Open Approach (ICD-10-PCS; 2019-03-29)
PROC: 0W9G0ZZ Drainage of Peritoneal Cavity, Open Approach (ICD-10-PCS; 2019-03-29)
DX: K57.20 Diverticulitis of large intestine with perforation and abscess without bleeding (principal); K52.9 Noninfective gastroenteritis and colitis, unspecified; J44.9 Chronic obstructive pulmonary disease, unspecified; G89.29 Other chronic pain; M54.9 Dorsalgia, unspecified; M79.7 Fibromyalgia; G43.909 Migraine, unspecified, not intractable, without status migrainosus; F41.9 Anxiety disorder, unspecified; H54.7 Unspecified visual loss; H04.123 Dry eye syndrome of bilateral lacrimal glands; K59.00 Constipation, unspecified; K21.9 Gastro-esophageal reflux disease without esophagitis; E66.9 Obesity, unspecified; E53.9 Vitamin B deficiency, unspecified; Z96.652 Presence of left artificial knee joint; F32.9 Major depressive disorder, single episode, unspecified; Z68.33 Body mass index [BMI] 33.0-33.9, adult; Z88.0 Allergy status to penicillin; Z88.8 Allergy status to other drugs, medicaments and biological substances; Z88.7 Allergy status to serum and vaccine; Z88.1 Allergy status to other antibiotic agents; Z88.6 Allergy status to analgesic agent; Z88.5 Allergy status to narcotic agent; Z79.899 Other long term (current) drug therapy; Z87.01 Personal history of pneumonia (recurrent); Z90.49 Acquired absence of other specified parts of digestive tract; Z90.710 Acquired absence of both cervix and uterus
CPT/HCPCS: 36415; 74019; 74177; 80048; 80053; 81001; 83605; 83690; 83735; 84100; 85025; 85027; 86140; 87046; 87070; 87075; 87077; 87177; 87186; 87205; 87209; 87493; 87899; 88305; 88307; 88341; 88342; 89055; 94762; 96361; 96365; 96375; 96376; 99285-25; A9270-GY; C9113; J0171; J0330; J0694; J0713; J1100; J1170; J2185; J2250; J2405; J2704; J2710; J2795; J3010; J3410; J3480; J3490; J7050; J7120; J7121; Q9967

== ENCOUNTER 2019-05-25 08:24 | Day surgery (SDC) | payer MEDICAID ==
[~2019-05-25 08:24] MED LIST changes: -Bupivacaine 0.5%/EPINEPHrine 1:200,000 50 ML MDV ONE; +Midazolam 1 MG/ML 2 ML SDV ONE; +Propofol 200 MG/20 ML SDV ONE; +fentaNYL 100 MCG/2 ML SDV ONE
[2019-05-25] MEDS: Bupivacaine 0.5% 50 ML MDV ONE ×2 (08:30→08:46)
[2019-05-25] MEDS: Lidocaine 1% with EPINEPHrine 1:100,000 50 ML MDV ONE ×2 (08:31→08:46)
[2019-05-25] MEDS ORDERED: Linezolid 600 MG in Premix Bag 1 BAG IV ONE (09:15)
[2019-05-25] MEDS ORDERED: Dextrose 5%-Lactated Ringers 1,000 ML IV SCH (09:30)
[2019-05-25] MEDS ORDERED: Propofol 200 MG/20 ML SDV ONE ×2 (09:44→09:48)
[2019-05-25] MEDS ORDERED: fentaNYL 100 MCG/2 ML SDV IVPUSH ONE (10:01)
[2019-05-25 11:16] VITALS: BP 132/83; PULSE 75
--- NOTE | 2019-06-04 09:07 | OR ---
DATE OF PROCEDURE: 05/25/2019 SURGEON: Lisandro Villarreal MD PREOPERATIVE DIAGNOSIS: Seroma at the level of abdominal incision. POSTOPERATIVE DIAGNOSIS: Inflammatory fluid collection versus an infection involving the lower abdominal incision with focal extension into the intraabdominal location with associated focal fascial dehiscence. OPERATIVE PROCEDURES: Exploration of the area of the seroma of the lower abdominal wall with: 1. Incision and drainage of partial intraabdominal inflammatory fluid collection versus abscess (91503). 2. Closure of focal fascial dehiscence (03966). ANESTHESIA: General. INDICATION FOR PROCEDURE: This is a 58-year-old female, status post surgical resection of sigmoid diverticulitis in March, presents now with a painful area of seroma formation in the lower midline incision. Plan is to proceed with opening of this incision and drainage and packing of the area most likely. Potential risks including bleeding, infection, injury to underlying viscera, as well as possible poor healing of the area were all reviewed, and the patient wishes to proceed. DETAILS OF PROCEDURE: The patient was taken to the operating room, placed in a supine position. After general endotracheal anesthesia was induced, the abdomen was prepped and draped. An elliptical incision over the area that had been marked in the lower midline incision and just below the umbilicus was made and carried down through the skin and subcutaneous tissue. Some cloudy fluid was then evacuated, culture of this was obtained. The fluid was not a clear serous fluid but not overly purulent. The sheth of the cavity did have quite a bit of obvious inflammation. As one tracked this fluid collection downward, there was underlying focal fascial dehiscence and this fluid collection extended perhaps 1.5 cm to 2 cm into the intraabdominal location. There did not appear to have any connection to the bowel per se. Once the fluid was evacuated, the area was irrigated with meropenem- containing saline solution. The focal fascial dehiscence was then closed, which included closure of the area where the fluid was extending into the intraabdominal location with care taken to have those stitches not pass further deep into that location so as to avoid potential underlying viscera. These sutures were 0 Vicryl stitch, and once this was completed, we opted then to pack the wound open with iodoform gauze, and the patient will be sent home with a dressing change in the clinic tomorrow. The patient was taken to the recovery room in satisfactory condition. There were no evident complications. Lisandro Villarreal MD /[id number]
== END 2019-05-25 11:15 | disposition home or self-care (01) ==
LOC: JP.SDS 08:24
PROVIDERS: ATTEND Surgery
DX: K91.872 Postprocedural seroma of a digestive system organ or structure following a digestive system procedure (principal); T81.30XA Disruption of wound, unspecified, initial encounter; J44.9 Chronic obstructive pulmonary disease, unspecified; F17.200 Nicotine dependence, unspecified, uncomplicated; Z88.8 Allergy status to other drugs, medicaments and biological substances; Z88.6 Allergy status to analgesic agent; Z88.1 Allergy status to other antibiotic agents; Z91.048 Other nonmedicinal substance allergy status
CPT/HCPCS: 49020; 49900; J2020; J2250; J2704; J3010; J3490; J7121; J2185

== ENCOUNTER 2019-08-10 08:19 | Inpatient (IN) | payer MEDICAID ==
[~2019-08-10 08:19] MED LIST changes: +Acetaminophen 500 MG Tab PO ONE; +Bupivacaine 0.5% 50 ML MDV ONE; +Gabapentin 300 MG Cap PO ONE; +Lidocaine 1% with EPINEPHrine 1:100,000 50 ML MDV ONE; -Meropenem 500 MG SDV ONE; -Midazolam 1 MG/ML 2 ML SDV ONE; -Propofol 200 MG/20 ML SDV ONE; -fentaNYL 100 MCG/2 ML SDV ONE
[2019-08-10] MEDS ORDERED: Dextrose 5%-Lactated Ringers 1,000 ML IV SCH (08:45)
[2019-08-10] MEDS ORDERED: fentaNYL 250 MCG/5 ML SDV ONE ×2 (09:03→12:29)
[2019-08-10] MEDS ORDERED: Rocuronium 50 MG/5 ML Vial ONE ×2 (09:04→12:29)
[2019-08-10] MEDS ORDERED: Dexamethasone 4 MG/ML SDV ONE (09:04)
[2019-08-10] MEDS ORDERED: Glycopyrrolate 0.2 MG/ML 5 ML MDV ONE (09:04)
[2019-08-10] MEDS ORDERED: Succinylcholine 200 MG/10 ML MDV ONE (09:04)
[2019-08-10] MEDS ORDERED: Neostigmine Methylsulfate 1 MG/ML 5 ML Syringe ONE (09:04)
[2019-08-10] MEDS ORDERED: Ondansetron 4 MG/2 ML SDV ONE (09:04)
[2019-08-10] MEDS ORDERED: Propofol 200 MG/20 ML SDV ONE (09:04)
[2019-08-10] MEDS ORDERED: Albuterol/Ipratropium 3.0-0.5 MG/3 ML Neb Soln NEB ONE (09:30)
[2019-08-10] MEDS ORDERED: Meropenem 500 MG in Sodium Chloride 0.9% 50 ML IV ONE (09:45)
[2019-08-10] MEDS ORDERED: Ondansetron 4 MG/2 ML SDV IVPUSH PRN ×2 (10:04→15:32)
[2019-08-10] MEDS ORDERED: diphenhydrAMINE 50 MG/ML SDV IVPUSH PRN ×2 (10:04→15:32)
[2019-08-10] MEDS ORDERED: Naloxone 0.4 MG/ML SDV IVPUSH PRN (10:04)
[2019-08-10] MEDS ORDERED: diphenhydrAMINE 25 MG Cap PO PRN (10:04)
[2019-08-10] MEDS ORDERED: Naloxone 0.4 MG/ML SDV IV PRN (10:11)
[2019-08-10] MEDS: HYDROmorphone/Normal Saline 15 MG/30 ML PCA IV PRN (10:45)
[2019-08-10] MEDS ORDERED: Ketamine 50 MG in Sodium Chloride 0.9% 49.5 ML IV SCH (11:00)
[2019-08-10] MEDS ORDERED: Ketamine 500 MG/5 ML MDV IV SCH (11:00)
[2019-08-10] MEDS ORDERED: Ropivacaine 46 ML, dexAMETHasone 8 MG, EPINEPHrine 0.4 MG, Sodium Chloride 0.9% 31.6 ML NERVRT SCH ×4 (11:00)
[2019-08-10] MEDS ORDERED: Meropenem 500 MG SDV ONE (11:52)
[2019-08-10] MEDS ORDERED: Lactated Ringers 1,000 ML ONE (13:17)
[2019-08-10] MEDS ORDERED: hydrOXYzine HCL 100 MG/2 ML SDV IM ONE (14:16)
[2019-08-10] MEDS ORDERED: Albuterol/Ipratropium 3.0-0.5 MG/3 ML Neb Soln INH PRN (15:32)
[2019-08-10] MEDS ORDERED: Metoclopramide 10 MG/2 ML SDV IVPUSH PRN (15:32)
[2019-08-10] MEDS ORDERED: Prazosin 1 MG Cap PO PRN (15:47)
[2019-08-10] MEDS ORDERED: SUMAtriptan 50 MG Tab PO PRN (15:48)
[2019-08-10] MEDS: Dextrose 5%-Lactated Ringers 1,000 ML IV SCH ×2 (16:12→21:46)
[2019-08-10] MEDS: Pantoprazole 40 MG Vial IVPUSH SCH (17:06)
[2019-08-10] MEDS: Acetaminophen 500 MG Tab PO SCH (19:15)
[2019-08-10] MEDS: Meropenem 500 MG in Sodium Chloride 0.9% 50 ML IV SCH (19:17)
[2019-08-10] MEDS: Ibuprofen 600 MG Tab PO SCH (20:30)
[2019-08-10] MEDS: Gabapentin 400 MG Cap PO SCH (20:30)
[2019-08-10] MEDS: RESTASIS EYEBOTH SCH (20:31)
[2019-08-10] MEDS: OLANZapine 5 MG Tab PO SCH (20:31)
[2019-08-10] MEDS: Albuterol/Ipratropium 3.0-0.5 MG/3 ML Neb Soln INH SCH (20:35)
[2019-08-11] MEDS: Acetaminophen 500 MG Tab PO SCH ×4 (00:53→17:31)
[2019-08-11] MEDS: Meropenem 500 MG in Sodium Chloride 0.9% 50 ML IV SCH ×4 (01:01→20:10)
[2019-08-11] MEDS: Cyclobenzaprine 10 MG Tab PO PRN ×3 (01:05→17:30)
[2019-08-11] MEDS: Linezolid 600 MG in Premix Bag 1 BAG IV SCH ×2 (02:34→13:28)
[2019-08-11] MEDS: Ibuprofen 600 MG Tab PO SCH ×4 (04:29→20:15)
[2019-08-11] MEDS: Dextrose 5%-Lactated Ringers 1,000 ML IV SCH ×3 (04:40→20:11)
[2019-08-11] MEDS: hydrOXYzine HCL 100 MG/2 ML SDV IM PRN ×2 (08:05→17:49)
[2019-08-11] MEDS: Escitalopram 20 MG Tab PO SCH (08:11)
[2019-08-11] MEDS: Gabapentin 400 MG Cap PO SCH ×3 (08:14→20:14)
[2019-08-11] MEDS: RESTASIS EYEBOTH SCH ×2 (08:16→20:15)
[2019-08-11] MEDS ORDERED: Celecoxib 200 MG Cap PO SCH (09:00)
[2019-08-11] MEDS: Albuterol/Ipratropium 3.0-0.5 MG/3 ML Neb Soln INH SCH ×4 (09:50→20:08)
[2019-08-11] MEDS: Magnesium Sulfate/Water 2 GM in Premix Bag 1 BAG IV SCH ×3 (10:41→21:21)
[2019-08-11] MEDS: Lactobacillus Rhamnosus GG (Probiotic) Cap PO SCH ×2 (10:42→20:16)
[2019-08-11] MEDS: Docusate Sodium 100 MG Cap PO SCH ×2 (10:42→20:14)
[2019-08-11] MEDS: Bisacodyl 5 MG Tab PO SCH ×2 (10:42→20:14)
[2019-08-11] MEDS: HYDROmorphone/Normal Saline 15 MG/30 ML PCA IV PRN (12:49)
[2019-08-11] MEDS: Pantoprazole 40 MG Vial IVPUSH SCH (17:30)
[2019-08-11] MEDS: OLANZapine 5 MG Tab PO SCH (20:15)
[2019-08-12] MEDS: Acetaminophen 500 MG Tab PO SCH ×4 (00:58→17:12)
[2019-08-12] MEDS: Meropenem 500 MG in Sodium Chloride 0.9% 50 ML IV SCH ×4 (00:59→19:47)
[2019-08-12] MEDS: Ibuprofen 600 MG Tab PO SCH ×4 (02:18→21:12)
[2019-08-12] MEDS: Linezolid 600 MG in Premix Bag 1 BAG IV SCH ×2 (02:18→14:59)
[2019-08-12] MEDS: Magnesium Sulfate/Water 2 GM in Premix Bag 1 BAG IV SCH ×4 (04:51→21:14)
[2019-08-12] MEDS: Albuterol/Ipratropium 3.0-0.5 MG/3 ML Neb Soln INH SCH ×4 (06:59→21:17)
[2019-08-12] MEDS: Cyclobenzaprine 10 MG Tab PO PRN ×2 (07:57→16:17)
[2019-08-12] MEDS: RESTASIS EYEBOTH SCH ×2 (07:59→21:13)
[2019-08-12] MEDS: Lactobacillus Rhamnosus GG (Probiotic) Cap PO SCH ×2 (08:00→21:11)
[2019-08-12] MEDS: Bisacodyl 5 MG Tab PO SCH ×2 (08:00→21:12)
[2019-08-12] MEDS: Docusate Sodium 100 MG Cap PO SCH ×2 (08:01→21:12)
[2019-08-12] MEDS: Gabapentin 400 MG Cap PO SCH ×3 (08:01→21:13)
[2019-08-12] MEDS: Escitalopram 20 MG Tab PO SCH (08:01)
--- NOTE | 2019-08-12 08:15 | PN ---
DATE OF SERVICE: 08/11/2019 The patient is status post complex abdominal surgery as outlined in an operative report on the chart. Clinically, she is doing quite well. Her pain control appears to be fairly satisfactory and will go up to a full liquid diet today, if tolerated that, and not try to take way too much in. Urine output is good and we will leave the Espitia catheter in until Tuesday due to the bladder repair that was part of the procedure yesterday. Otherwise, begin some bowel stimulation and probiotic capsules as the patient reports she has had problems in the past with antibiotic use. We will leave the present antibiotics in place pending some C and S results. All the Gram stains came back negative for organisms but I suspect something will probably grow out, as there is grossly purulent material both from the abdominal wall as well as in the omental abscess. The labs did show a hemoglobin of 11.6 and white count 11.1 and liver function tests were up mildly and BNP is at 246, magnesium is slightly low at 1.6. The plan will be to back down the IV rate, begin the full liquid diet, begin some ongoing bowel stimulation and probiotic capsules and magnesium supplementation. Otherwise, work with increasing activity and pulmonary toilet. We will plan to do a delayed primary closure of the abdominal incision on Tuesday. Lisandro Villarreal MD /[id number] MTDD
[2019-08-12] MEDS: Dextrose 5%-Lactated Ringers 1,000 ML IV SCH (15:01)
[2019-08-12] MEDS: HYDROmorphone/Normal Saline 15 MG/30 ML PCA IV PRN (15:24)
[2019-08-12] MEDS: Pantoprazole 40 MG Vial IVPUSH SCH (16:14)
[2019-08-12] MEDS: OLANZapine 5 MG Tab PO SCH (21:13)
[2019-08-13] MEDS: Meropenem 500 MG in Sodium Chloride 0.9% 50 ML IV SCH ×4 (01:09→20:30)
[2019-08-13] MEDS: Acetaminophen 500 MG Tab PO SCH ×4 (01:09→18:02)
[2019-08-13] MEDS: Linezolid 600 MG in Premix Bag 1 BAG IV SCH ×2 (02:21→15:21)
[2019-08-13] MEDS: Ibuprofen 600 MG Tab PO SCH ×4 (03:32→20:45)
[2019-08-13] MEDS: Magnesium Sulfate/Water 2 GM in Premix Bag 1 BAG IV SCH ×4 (03:35→22:55)
[2019-08-13] MEDS ORDERED: Lidocaine 1% with EPINEPHrine 1:100,000 50 ML MDV ONE (06:33)
[2019-08-13] MEDS ORDERED: Bupivacaine 0.5% 50 ML MDV ONE ×2 (06:33→06:34)
[2019-08-13] MEDS ORDERED: Meropenem 500 MG SDV ONE (06:33)
[2019-08-13] MEDS: Dextrose 5%-Lactated Ringers 1,000 ML IV SCH (07:06)
[2019-08-13] MEDS ORDERED: Midazolam 1 MG/ML 2 ML SDV ONE (07:07)
[2019-08-13] MEDS ORDERED: Propofol 200 MG/20 ML SDV ONE ×2 (07:07→07:42)
[2019-08-13] MEDS ORDERED: fentaNYL 100 MCG/2 ML SDV ONE (07:07)
[2019-08-13] MEDS: Albuterol/Ipratropium 3.0-0.5 MG/3 ML Neb Soln INH SCH ×4 (07:23→21:12)
[2019-08-13] MEDS ORDERED: Sodium Chloride 0.9% 10 ML Syringe IV PRN (08:51)
[2019-08-13] MEDS: Docusate Sodium 100 MG Cap PO SCH ×2 (08:52→20:38)
[2019-08-13] MEDS: Lactobacillus Rhamnosus GG (Probiotic) Cap PO SCH ×2 (08:54→20:43)
[2019-08-13] MEDS: Escitalopram 20 MG Tab PO SCH (08:54)
[2019-08-13] MEDS: Gabapentin 400 MG Cap PO SCH ×3 (08:55→20:46)
[2019-08-13] MEDS: RESTASIS EYEBOTH SCH ×2 (08:56→20:47)
[2019-08-13] MEDS: HYDROmorphone 2 MG Tab PO PRN ×3 (11:13→21:49)
[2019-08-13] MEDS: Pantoprazole 40 MG Tab.CR PO SCH (11:13)
--- NOTE | 2019-08-13 11:14 | US ---
VL Duplex Lwr Ext Veins Ltd Lt INDICATION: R/O DVT FINDINGS: Ultrasound examination of the lower extremity using Doppler and compressive technique demonstrates that the common femoral, femoral, and popliteal veins are patent, and compressible. The calf veins were segmentally visualized and are negative where seen. IMPRESSION: Negative for deep venous thrombosis.
[2019-08-13] MEDS: LORazepam 2 MG/ML SDV IVPUSH PRN ×2 (14:25→21:48)
--- NOTE | 2019-08-13 16:40 | PN ---
DATE OF SERVICE: 08/13/2019 SUBJECTIVE: Maylin is n.p.o. for delayed primary closure today. Vital signs have been stable. She has been afebrile. Oral intake 4520, urine output via Espitia catheter 2700. She has had 100% of breakfast and lunch and 75% of dinner. Bowel movements in the past 24 hours 5. ANTHONY drain put out 60 mL of a light red drainage. Reports pain to the left of her mid incision. She states that has always been the tender spot since this started. REVIEW OF SYSTEMS: Remainder of review of systems negative for any pertinent positives and negatives. OBJECTIVE: GENERAL: Maylin Rodarte is a pleasant 58-year-old female, alert, orientated. VITAL SIGNS: TPR is 97.3, 87, 18, blood pressure 99/54. HEENT: Negative. NECK: Supple. HEART: Regular rate and rhythm. LUNGS: Clear. ABDOMEN: Dressings dry and intact. ANTHONY drain intact. EXTREMITIES: With trace peripheral edema. Reports more swelling in the left upper thigh, and it is swollen, nontender. Homans' sign is negative. ASSESSMENT: Exploratory laparotomy with: 1. Drainage of intra-abdominal abscess. 2. Omentectomy. 3. Removal of intraperitoneal mesh. 4. Small bowel resection. 5. Small bowel strictureplasty. 6. Repair of deserosalized omentum over urinary bladder. 7. Debridement of abdominal wall. 8. Mobilization of the omentum into pelvis and lower abdominal wall. POSTOPERATIVE DIAGNOSES: 1. Intra-abdominal abscess draining through abdominal wall with contamination of intra- abdominal mesh and encapsulated by omentum. 2. Small bowel and urinary bladder adherent to intraperitoneal mesh. 3. Small bowel stricture. 4. Focally necrotic abdominal wall. Date of Surgery: 08/10/2019. Surgeon: Lisandro Villarreal M.D. PLAN: The patient is ready to have delayed primary closure. Consents are signed. Orders to be written postoperatively. Piper Montoya PA-C /[id number]
[2019-08-13] MEDS: Nicotine 14 MG/24 Hr Patch TRDERM SCH (17:59)
[2019-08-13] MEDS: OLANZapine 5 MG Tab PO SCH (20:47)
[2019-08-14] MEDS: Acetaminophen 500 MG Tab PO SCH ×2 (01:59→05:13)
[2019-08-14] MEDS: Meropenem 500 MG in Sodium Chloride 0.9% 50 ML IV SCH ×2 (02:00→08:07)
[2019-08-14] MEDS: Linezolid 600 MG in Premix Bag 1 BAG IV SCH (02:55)
[2019-08-14] MEDS: Ibuprofen 600 MG Tab PO SCH ×2 (03:14→08:06)
[2019-08-14] MEDS: Magnesium Sulfate/Water 2 GM in Premix Bag 1 BAG IV SCH (04:37)
[2019-08-14] MEDS: LORazepam 2 MG/ML SDV IVPUSH PRN (05:12)
[2019-08-14] MEDS: Albuterol/Ipratropium 3.0-0.5 MG/3 ML Neb Soln INH SCH (07:04)
[2019-08-14 07:27] VITALS: BP 148/68; PULSE 97
[2019-08-14] MEDS: HYDROmorphone 2 MG Tab PO PRN (08:05)
[2019-08-14] MEDS: Pantoprazole 40 MG Tab.CR PO SCH (08:07)
[2019-08-14] MEDS: Docusate Sodium 100 MG Cap PO SCH (08:08)
[2019-08-14] MEDS: Lactobacillus Rhamnosus GG (Probiotic) Cap PO SCH (08:08)
[2019-08-14] MEDS: Nicotine 14 MG/24 Hr Patch TRDERM SCH ×2 (08:08→08:22)
[2019-08-14] MEDS: Gabapentin 400 MG Cap PO SCH (08:09)
[2019-08-14] MEDS: RESTASIS EYEBOTH SCH (08:09)
[2019-08-14] MEDS: Escitalopram 20 MG Tab PO SCH (09:32)
--- NOTE | 2019-08-14 11:05 | DISCH ---
ADMISSION DIAGNOSES: 1. Abdominal abscess. 2. Fibromyalgia. 3. Chronic obstructive pulmonary disease. 4. History of anemia. 5. Tobacco dependence. 6. Alcohol dependence, in remission. DISCHARGE DIAGNOSES: Exploratory laparotomy with: 1. Drainage of intraabdominal abscess. 2. Omentectomy. 3. Removal of intraperitoneal mesh. 4. Small bowel resection. 5. Small bowel strictureplasty. 6. Repair of deserosalized omentum over urinary bladder. 7. Debridement of abdominal wall. 8. Mobilization of omentum into pelvis and lower abdominal wall. POSTOPERATIVE DIAGNOSES: 1. Intraabdominal abscess draining through abdominal wall with contamination of intraabdominal mesh and encapsulated by omentum. 2. Small bowel and urinary bladder adherent to intraperitoneal mesh. 3. Small bowel stricture. 4. Focally necrotic abdominal wall. Date of Surgery: 08/10/2019; surgeon, Lisandro Villarreal M.D. Delayed primary closure for open abdominal incision. Date of surgery: 08/13/2019; Surgeon, Lisandro Villarreal. HISTORY: Maylin Rodarte is a 58-year-old female who developed pain, redness and firmness at her incision site. After preoperative evaluation and discussion of possible risks and possible complications, she wished to proceed with surgical procedure. HOSPITAL COURSE: Maylin had her surgery on 08/10/2019. She had no operative complications. On postoperative day #1, her IV was decreased. She was started on a full liquid diet. Her magnesium was supplemented, and she was started on bowel stimulation. On 08/12/2019, her IV was decreased further. She was up ambulating. Pain was controlled. On 08/13/2019, she had delayed primary closure. Bowels started to function. She was on regular diet. Pain was well managed with oral pain medication and vital signs remained stable and she was active and alert. On 08/14/2019, Maylin was able to be discharged to home with home health care. PHYSICAL EXAMINATION: GENERAL: Maylin is a pleasant 58-year-old female. VITAL SIGNS: Height is 5 feet 5 inches, weight is 200 pounds. TPR at 0724 is 96.8, 97, 16. Blood pressure 148/68. HEENT: Negative. NECK: Supple. HEART: Regular rate and rhythm. LUNGS: Clear. ABDOMEN: Aquacel dressing is on with small shadowing of dark red. Abdominal binder has been on. EXTREMITIES: Without peripheral edema. DISPOSITION: Discharged to home with home health care. CONDITION: Stable and improving. FOLLOWUP: Followup appointment with Lisandro Villarreal at [facility], 08/22/2019 at 8:30 a.m. NEW PRESCRIPTIONS: 1. Tylenol 1000 mg every 6 hours p.r.n. pain. 2. Diflucan 100 mg oral daily, 5 days. 3. Dilaudid 2 mg every 4 hours p.r.n., pain #42. 4. Ibuprofen 600 mg q.6 hours p.r.n. pain, #56. 5. Culturelle, 2 capsules twice daily, #120 with 1 refill. To resume home medications; 1. ProAir 2 puffs inhalation every 6 hours p.r.n. shortness of breath. 2. Combivent Respimat, 1 puff inhalation every 4 hours p.r.n. wheezing. 3. Flexeril 10 mg, 3 times daily p.r.n. muscle spasms. 4. Bentyl 10 mg, 3 times daily with meals p.r.n. bloating and gas. 5. Vitamin D2 50,000 International Units every 7 days. 6. Lexapro 20 mg oral daily. 7. Neurontin 800 mg oral 3 times daily. 8. Ativan 0.5 mg 3 times daily p.r.n. anxiety. 9. Zyprexa 2.5 oral at bedtime. 10.Omeprazole 20 mg oral twice daily. 11.Prazosin HCl 1 mg oral at bedtime p.r.n. insomnia. 12.Imitrex 25 mg, take as directed p.r.n. headache. 13.Senna docusate sodium tablet, 1 oral daily p.r.n. constipation. 14.Cleocin 600 mg oral as needed prior to dental procedures. 15.Restasis 1 drop twice daily in each eye. DIET: Usual diet as tolerated. Drink 8 to 10 glasses of water a day. ACTIVITY: No lifting over 10 pounds for 6 weeks. OTHER ACTIVITY: Walk 6 times daily inside your home. DRIVING: Do not drive for 1 week. SHOWER/BATHING: May shower. DISCHARGE INSTRUCTIONS: Notify provider if any fever, increased pain, swelling, redness, drainage, nausea, or vomiting. Wound incision care; keep site clean and dry. SPECIAL INSTRUCTIONS: 1. Home Health Care will change Aquacel dressing on 08/17/2019 and put on a new one. 2. Take off Aquacel dressing on 08/21/2019 and put a small piece of gauze over the fabio. 3. Wear abdominal binder for 6 weeks. 4. Use incentive spirometer 10 times every hour while awake for 1 week.
--- NOTE | 2019-08-20 13:37 | PN ---
DATE OF SERVICE: 08/12/2019 The patient has been afebrile with stable vital signs. Oral intake has been fairly good without any nausea. We will keep her on a full liquid diet today. Otherwise, continue the present antibiotics. Awaiting C and S results, and we will plan to proceed with delayed primary closure of abdominal incision tomorrow. Lisandro Villarreal MD /[id number]
--- NOTE | 2019-08-22 14:17 | OR ---
DATE OF PROCEDURE: 08/10/2019 SURGEON: Lisandro Villarreal MD PREOPERATIVE DIAGNOSIS: Intraabdominal abscess with spontaneous drainage through the abdominal wall. POSTOPERATIVE DIAGNOSES: 1. Intraabdominal abscess draining through abdominal wall with partial encapsulation of the abscess by the omentum. 2. Contamination of the intraabdominal mesh. 3. Small bowel and urinary bladder adherent to intraperitoneal mesh. 4. Small bowel stricture. 5. Focally necrotic abdominal wall. OPERATIVE PROCEDURES: Exploratory laparotomy with: 1. Drainage of intraabdominal abscess (88239). 2. Omentectomy (24979). 3. Removal of intraperitoneal mesh (28520). 4. Small bowel resection (56575). 5. Small bowel stricturoplasty (48260). 6. Repair of deserosalized area of urinary bladder (49157). 7. Debridement of abdominal wall (88013). 8. Mobilization of omentum into the lower abdomen and pelvis to limit recurrent adhesion formation (81695). ANESTHESIA: General. SUPERVISOR TYPE DISK QUALITY CONTROL: Piper Montoya PA-C. INDICATIONS FOR PROCEDURE: This is a 58-year-old presenting with some spontaneous purulent drainage through the abdominal wall. This, on CT scan, appears to track down into the intraperitoneal location, more or less tracking down to the lower midline and from there into the pelvis. The plan is to proceed with exploratory laparotomy and drainage of the abscess and other procedures as indicated. Potential risks including bleeding and perforation were discussed, and the patient wishes to proceed. DETAILS OF PROCEDURE: The patient was taken to the operating room after general endotracheal anesthesia was induced. The Espitia catheter was inserted, and the abdomen prepped and draped. The previous midline incision was then reused and carried down from just above the umbilicus down to just above the pubis. The abscess cavity was then encountered as one went through the fascia. Initially, some purulent drainage was identified and two sets of cultures were obtained. Inferior to that, the abscess was more or less encapsulated by the omentum with this portion of the omentum coming downward underneath the midline and then veering slightly off as it went down into the pelvis. This was mobilized upward and freed up from adhesions and the omentum involving the abscess encapsulation was then excised with a ISRRAEL stapler and that specimen delivered from the field. The patient was noted to have had this abscess tract through the previously placed intraperitoneal mesh, and at that point, quite a bit in the way of adhesions were noted between the mesh and an area of small bowel, as well as urinary bladder. As those areas were dissected, a significant amount of small bowel was deserosalized upon its dissection away from the mesh. Once this was freed up, the involved small bowel was divided proximally and distally to the area of involvement with the ISRRAEL stapler, as was the underlying mesentery. Small bowel continuity was then accomplished with a [id number] enteroenterostomy with 60 mm ISRRAEL stapler, common opening closed transversely with the same stapler, angles anastomosed and mesenteric defect approximated with some 3-0 Vicryl stitch. The mesh also was adherent to the dome of the bladder, and this portion was somewhat deserosalized. A small amount of musculature of the bladder appeared to come off adherent to the mesh as well during the dissection. This urinary bladder area was then repaired with a series of [id number] stitches of 2-0 Vicryl stitch. The patient was also noted to have a separate small-bowel stricture where some adhesions had been taken down. Stricturoplasty was accomplished in this area with the opening of the antimesenteric aspect of the small-bowel stricture and firing of ISRRAEL stapler 60 mm in length on each side of the bowel, common opening closed transversely, angles of anastomosis were reinforced with 3-0 Vicryl stitch, and by definition, there was no mesenteric defect in the site of the stricturoplasty. At this point, the intraperitoneal mesh was then removed with a combination of blunt and cautery dissection. All of the mesh which extended from above the umbilicus and well across the lower abdomen was removed to its obvious contamination at this point. The abdomen was then irrigated with meropenem and Zyvox containing saline solution. A single Sheng- Kern drain was then placed in the right mid abdomen, taken down from there into the area of dissection into the pelvis. The remaining omentum was then mobilized down into the pelvis, sutured there with some 3-0 Vicryl stitch so as to provide some separation between the small bowel and the abdominal wall closure. There was some necrotic area of the skin, subcutaneous tissue, and fascia of the abdominal wall, which was debrided at this point as well. The fascia closure was then accomplished with #2 Vicryl stitch and the skin and subcutaneous tissue were obviously contaminated and left open, and the patient was taken to the recovery room in satisfactory condition. There were no evident complications. Physician certified medical technician assistant, Piper Montoya PA-C, played an essential role in assisting in this case helping to position the patient, retract structures as needed, as well as suturing and cutting sutures when indicated. Her presence improved patient safety and decreased operative time. Lisandro Villarreal MD /[id number] MTDD
--- NOTE | 2019-08-26 12:33 | OR ---
DATE OF PROCEDURE: 08/13/2019 SURGEON: Lisandro Villarreal MD PREOPERATIVE DIAGNOSIS: Open abdominal incision. POSTOPERATIVE DIAGNOSIS: Open abdominal incision. OPERATIVE PROCEDURE: Delayed primary closure of open abdominal incision. ANESTHESIA: IV sedation plus local. INDICATIONS FOR PROCEDURE: The patient is status post laparotomy, which there was an adherent contamination of the skin and subcutaneous tissue, and to avoid high risk for wound infection, those were packed open and a planned delayed primary closure scheduled for this time. Potential risks of the procedure including bleeding and infection were reviewed, and the patient wishes to proceed. DETAILS OF PROCEDURE: The patient was taken to the operating room and placed in a supine position. IV sedation was administered, after which the operative dressing was taken down. The wound was judged to be satisfactory for closure. Area was then prepped and draped, anesthetized with 1% lidocaine mixed with Marcaine. Bilateral transversus abdominis plane blocks were then placed using ultrasound guidance and the incision irrigated with antibiotic- containing saline solution. The incision was then closed with 2 layers of 3-0 and 4-0 Vicryl stitch deep and then fabio for the skin. Dressing was applied. The patient was taken to the recovery room in satisfactory condition. Lisandro Villarreal MD /[id number]
== END 2019-08-14 10:30 | disposition home health service (06) | DRG 330 ==
LOC: JP.SDSSCHI 08:19 → JP.SDS 08:19 → EDSTATUS 10:45 → JP.SDSSCHI 15:00 → UNDOADMIN 15:00 → JP.SDSSCHI 15:26 → JP.MS 15:26
PROVIDERS: ADMIT Surgery; ATTEND Surgery
PROC: 0W9G0ZZ Drainage of Peritoneal Cavity, Open Approach (ICD-10-PCS; principal; 2019-08-10)
PROC: 0DB80ZZ Excision of Small Intestine, Open Approach (ICD-10-PCS; 2019-08-10)
PROC: 0DBU0ZZ Excision of Omentum, Open Approach (ICD-10-PCS; 2019-08-10)
PROC: 0WPF0JZ Removal of Synthetic Substitute from Abdominal Wall, Open Approach (ICD-10-PCS; 2019-08-10)
PROC: 0TQB0ZZ Repair Bladder, Open Approach (ICD-10-PCS; 2019-08-10)
PROC: 0JB80ZZ Excision of Abdomen Subcutaneous Tissue and Fascia, Open Approach (ICD-10-PCS; 2019-08-10)
PROC: 0WQF0ZZ Repair Abdominal Wall, Open Approach (ICD-10-PCS; 2019-08-13)
DX: K65.1 Peritoneal abscess (principal); K56.609 Unspecified intestinal obstruction, unspecified as to partial versus complete obstruction; M79.7 Fibromyalgia; J44.9 Chronic obstructive pulmonary disease, unspecified; F17.210 Nicotine dependence, cigarettes, uncomplicated; D64.9 Anemia, unspecified; F10.21 Alcohol dependence, in remission; Z88.1 Allergy status to other antibiotic agents; Z88.6 Allergy status to analgesic agent; Z88.5 Allergy status to narcotic agent; Z88.0 Allergy status to penicillin; Z88.7 Allergy status to serum and vaccine; Z88.8 Allergy status to other drugs, medicaments and biological substances
CPT/HCPCS: 36415; 80053; 83735; 83880; 84100; 85025; 87070; 87075; 87205; 88307; 93971-26-LT; 93971-LT; 94640; 94762; A9270-GY; C9113; J0171; J0330; J1100; J1170; J2020; J2060; J2185; J2250; J2405; J2704; J2710; J2795; J3010; J3410; J3475; J3490; J7050; J7120; J7121; J7620-GY

== ENCOUNTER 2019-11-06 09:10 | Day surgery (SDC) | payer MEDICAID ==
[~2019-11-06 09:10] MED LIST changes: -Acetaminophen 500 MG Tab PO ONE; +Dexamethasone 4 MG/ML SDV ONE; -Gabapentin 300 MG Cap PO ONE; +Glycopyrrolate 0.2 MG/ML 5 ML MDV ONE; +Meropenem 500 MG SDV ONE; +Neostigmine Methylsulfate 1 MG/ML 5 ML Syringe ONE; +Ondansetron 4 MG/2 ML SDV ONE; +Propofol 200 MG/20 ML SDV ONE; +Rocuronium 50 MG/5 ML Vial ONE; +Succinylcholine 200 MG/10 ML MDV ONE; +fentaNYL 250 MCG/5 ML SDV ONE
[2019-11-06] MEDS ORDERED: Gabapentin 400 MG Cap PO ONE (09:15)
[2019-11-06] MEDS ORDERED: Acetaminophen 500 MG Tab PO ONE (09:15)
[2019-11-06] MEDS ORDERED: Albuterol/Ipratropium 4 GM Inhalation Spray INH ONE (10:00)
[2019-11-06] MEDS ORDERED: Linezolid 600 MG in Premix Bag 1 BAG IV ONE (10:45)
[2019-11-06] MEDS ORDERED: Ketamine 50 MG in Sodium Chloride 0.9% 49.5 ML IV SCH ×2 (11:00→15:00)
[2019-11-06] MEDS ORDERED: Ketamine 500 MG/5 ML MDV IV SCH ×2 (11:00→15:00)
[2019-11-06] MEDS ORDERED: fentaNYL 250 MCG/5 ML SDV ONE (12:12)
[2019-11-06] MEDS ORDERED: Rocuronium 50 MG/5 ML Vial ONE (12:13)
[2019-11-06] MEDS ORDERED: Dexamethasone 4 MG/ML SDV ONE (12:13)
[2019-11-06] MEDS ORDERED: Ondansetron 4 MG/2 ML SDV ONE (12:13)
[2019-11-06] MEDS ORDERED: Glycopyrrolate 0.2 MG/ML 5 ML MDV ONE (12:13)
[2019-11-06] MEDS ORDERED: Propofol 200 MG/20 ML SDV ONE (12:13)
[2019-11-06] MEDS ORDERED: Succinylcholine 200 MG/10 ML MDV ONE (12:14)
[2019-11-06] MEDS: Dextrose 5%-Lactated Ringers 1,000 ML IV SCH ×2 (12:54→19:23)
[2019-11-06] MEDS ORDERED: Neostigmine Methylsulfate 1 MG/ML 5 ML Syringe ONE (13:35)
[2019-11-06] MEDS ORDERED: Bupivacaine 0.5%/EPINEPHrine 1:200,000 50 ML MDV ONE (13:58)
[2019-11-06] MEDS ORDERED: HYDROmorphone 1 MG/ML Syringe IV PRN (15:19)
[2019-11-06] MEDS ORDERED: HYDROmorphone 0.5 MG/0.5 ML Syringe IVPUSH PRN (15:19)
[2019-11-06] MEDS ORDERED: oxyCODONE 5 MG Tab PO PRN (15:19)
[2019-11-06] MEDS ORDERED: Ondansetron 4 MG/2 ML SDV IVPUSH PRN (15:20)
[2019-11-06] MEDS ORDERED: Prazosin 1 MG Cap PO PRN (15:35)
[2019-11-06] MEDS ORDERED: ALBUTEROL INH PRN (15:39)
[2019-11-06] MEDS ORDERED: IPRATROPIUM INH PRN (15:39)
[2019-11-06] MEDS ORDERED: Acetaminophen 1,000 MG in Premix Bag 1 BAG IV SCH (16:00)
[2019-11-06] MEDS: Acetaminophen 500 MG Tab PO SCH ×2 (16:21→21:57)
[2019-11-06] MEDS: Nicotine 7 MG/24 Hr Patch TRDERM SCH (18:22)
[2019-11-06] MEDS: HYDROmorphone 2 MG Tab PO PRN (19:14)
[2019-11-06] MEDS: Gabapentin 400 MG Cap PO SCH (20:35)
[2019-11-06] MEDS: OPTH EYEBOTH SCH (20:36)
[2019-11-06] MEDS: RESTASIS 0.05% EYEBOTH SCH (20:36)
[2019-11-06] MEDS ORDERED: Pantoprazole 40 MG Tab.CR PO SCH (21:00)
[2019-11-06] MEDS ORDERED: OLANZapine 5 MG Tab PO SCH (21:00)
[2019-11-07] MEDS: HYDROmorphone 2 MG Tab PO PRN ×3 (01:14→12:39)
[2019-11-07] MEDS: Linezolid 600 MG in Premix Bag 1 BAG IV SCH ×2 (01:15→14:26)
[2019-11-07] MEDS: Acetaminophen 500 MG Tab PO SCH ×2 (03:58→11:10)
[2019-11-07] MEDS: Dextrose 5%-Lactated Ringers 1,000 ML IV SCH (05:12)
[2019-11-07] MEDS: Nicotine 7 MG/24 Hr Patch TRDERM SCH (08:03)
[2019-11-07] MEDS: Gabapentin 400 MG Cap PO SCH ×2 (08:04→14:26)
[2019-11-07] MEDS: RESTASIS 0.05% EYEBOTH SCH (08:05)
[2019-11-07] MEDS: OPTH EYEBOTH SCH (08:05)
[2019-11-07] MEDS ORDERED: Escitalopram 20 MG Tab PO SCH (09:00)
--- NOTE | 2019-11-07 11:25 | DISCH ---
ADMISSION DIAGNOSIS: Soft-tissue mass, right periumbilical abdominal wall. DISCHARGE DIAGNOSIS: Excision of soft tissue mass, right periumbilical abdominal wall involving fascia and muscle, 5.4 cm. HISTORY: Maylin Rodarte is a 59-year-old female with a palpable soft tissue mass. After preoperative evaluation and discussion of possible risks and possible complications, she wished to proceed with surgical procedure. HOSPITAL COURSE: Maylin had her surgical procedure on 11/06/2019. She had no operative complications. On postoperative day #1, she was afebrile, oral intake adequate, activity good, and pain was well managed. She was able to be discharged to home. PHYSICAL EXAMINATION: GENERAL: Maylin Rodarte is a pleasant 59-year-old female. VITAL SIGNS: Height is 5 feet 5 inches, weight is 196 pounds, BMI is 32.6. TPR at 0601, 96.2; 81; 16; blood pressure 126/67. HEENT: Negative. NECK: Supple. HEART: Regular rate and rhythm. LUNGS: Clear. ABDOMEN: Dressings dry and intact. Abdominal binder is on. EXTREMITIES: Without peripheral edema. DISPOSITION: Discharged to home. CONDITION: Stable and improving. FOLLOWUP: Appointment with Lisandro Villarreal MD, at [facility] on 11/14/2019 at 8:45 a.m. HOME MEDICATIONS: 1. Dilaudid 2 mg every 6 hours p.r.n. pain, #28. 2. She is to resume all her other home medication. DIET: Usual diet as tolerated. Drink 8 to 10 glasses of water a day. ACTIVITY: No lifting over 10 pounds for 2 weeks. May shower on 11/08/2019. DISCHARGE INSTRUCTIONS: Keep operative site clean and dry. Take off dressing tomorrow, , 11/08/2019 and may shower. Wear abdominal binder as tolerated for 2 weeks. Notify provider if any fever, increased pain, swelling, drainage. SPECIAL INSTRUCTION: Use incentive spirometer 10 times every hour while awake for 1 week.
[2019-11-07 11:29] VITALS: BP 154/84; PULSE 80
--- NOTE | 2019-11-11 14:26 | OR ---
DATE OF PROCEDURE: 11/06/2019 SURGEON: Lisandro Villarreal MD PREOPERATIVE DIAGNOSIS: Soft tissue mass, right periumbilical abdominal wall. POSTOPERATIVE DIAGNOSIS: Soft tissue mass, right periumbilical abdominal wall involving the fascia and muscle. OPERATIVE PROCEDURE: Excision of soft tissue mass, right periumbilical abdominal wall (24054). ANESTHESIA: General. KICKING MACHINE OPERATOR: Piper Montoya PA-C INDICATION FOR PROCEDURE: The patient presents with an increasingly sized and uncomfortable mass in the area just to the right of the midline incision in the periumbilical area. This appeared to be a complex soft tissue mass on preoperative imaging. Plan is to proceed with excision of this maintaining a small margin of normal tissue around it. The potential risks of procedure including bleeding, infection, injury to underlying viscera, possible hernia formation, or recurrence of lesion in the area were reviewed, and the patient wishes to proceed. Issue of whether this patient is experiencing Dercum's disease has been raised by the patient's primary physician, Dr. Magali Manuel, and that issue will be raised on the pathology request on the excised tissue. DETAILS OF PROCEDURE: The patient was taken to the operating room and placed in a supine position. After general endotracheal anesthesia was induced, the abdomen was prepped and draped and a transversely-oriented incision was then made over the mass. This was carried down through the skin and subcutaneous tissue. When approached the mass, plane of subcutaneous tissue was maintained around which was normal in appearance and dissection continued down to the level of the fascia. The mass was adherent to the fascia and the mass along with some of the underlying fascia and musculature was excised maintaining again a small margin of normal-appearing tissue around the lesion. The lesion was then removed intact. At the end of the procedure, the lesion was partially bisected and cultures obtained from within it. The mass itself measured 5.4 cm in diameter. At that point, the fascia was then approximated with a #2 Vicryl stitch, the subcutaneous tissue with 3-0 Vicryl stitch and skin with fabio. The transversus abdominis plane blocks were placed with ultrasound guidance and the patient was taken to the recovery room in satisfactory condition. Physician special ed assistant, Piper Montoya, played an essential role in assisting in this case helping to position the patient, retract structures as needed, as well as suturing and cutting sutures when indicated. Her presence improved patient safety and decreased operative time. Lisandro Villarreal MD /[id number]
== END 2019-11-07 12:45 | disposition home or self-care (01) ==
LOC: JP.SDSSCHI 09:10 → JP.SDS 09:10 → UNDOADMIN 09:10 → JP.MS 14:30 → JP.SDSSCHI 14:30 → JP.MS 16:00 → JP.SDS 11-07 12:45
PROVIDERS: ATTEND Surgery
DX: K65.4 Sclerosing mesenteritis (principal); J44.9 Chronic obstructive pulmonary disease, unspecified; F17.200 Nicotine dependence, unspecified, uncomplicated; G43.109 Migraine with aura, not intractable, without status migrainosus; F41.9 Anxiety disorder, unspecified; E66.9 Obesity, unspecified; F33.1 Major depressive disorder, recurrent, moderate; F17.210 Nicotine dependence, cigarettes, uncomplicated; F43.10 Post-traumatic stress disorder, unspecified; Z88.1 Allergy status to other antibiotic agents; Z88.7 Allergy status to serum and vaccine; Z88.8 Allergy status to other drugs, medicaments and biological substances; Z88.5 Allergy status to narcotic agent; Z68.32 Body mass index [BMI] 32.0-32.9, adult
CPT/HCPCS: 13101; 22903; 36415; 80053; 83735; 84100; 85027; 87070; 87075; 87205; 88305; 94640; 94762; A9270; J0171; J0330; J1100; J1170; J2020; J2405; J2704; J2710; J2795; J3010; J3490; J7050; J7121; J2185

== ENCOUNTER 2020-02-18 23:08 | Emergency (ER) | payer MEDICAID ==
[2020-02-18 23:22] VITALS: BP 135/80; PULSE 76
[2020-02-18] MEDS ORDERED: Ketorolac 60 MG/2 ML SDV IM ONE (23:55)
[2020-02-19] MEDS ORDERED: Lidocaine 5% 700 MG Patch TOP ONE (00:20)
--- NOTE | 2020-02-19 00:32 | EDM.PDOC ---
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 Has an appt to see Dr. Villarreal who has removed them in the past, but is not getting relief from her Tramadol so came tonight to the ER. Has not called her primary about her Tramadol not working. Is wondering if her lipoma could be putting dangerous pressure on her other organs or if it could rupture? Onset: Gradual Duration: Week(s):, Getting Worse Location: Reports: Abdomen Quality: Reports: Dull Severity: Moderate Improves with: Reports: Medication Worsens with: Reports: Other (time) Context: Reports: Other (See HPI) Associated Symptoms: Reports: No Other Symptoms Treatments GRAIN MILLER HELPER: Reports: Other (see below) (Last dose of tramadol over 12 hrs ago) - Related Data Allergies Allergy/AdvReac Type Severity Reaction Status Date / Time Penicillins Allergy Intermediate Airway Verified 02/18/20 23:26 Tightness tiotropium bromide Allergy Intermediate Difficulty Verified 02/18/20 23:26 [From Spiriva with Breathing HandiHaler] adhesive tape Allergy Blisters Verified 02/18/20 23:26 bupropion [From Wellbutrin] Allergy Cannot Verified 02/18/20 23:26 Remember cortisone [Cortisone] Allergy Itching Verified 02/18/20 23:26 escitalopram Allergy Other Verified 02/18/20 23:26 fluoxetine HCl [From Prozac] Allergy Excitabilit Verified 02/18/20 23:26 y Influenza Virus Vaccines Allergy Cannot Verified 02/18/20 23:26 Remember levofloxacin [From Levaquin] Allergy Cannot Verified 02/18/20 23:26 Remember tiotropium Allergy Other Verified 02/18/20 23:26 aspirin AdvReac Nausea Verified 02/18/20 23:26 bupropion HCl AdvReac Tremors Verified 02/18/20 23:26 [From Wellbutrin] codeine AdvReac Vomiting Verified 02/18/20 23:26 duloxetine HCl AdvReac Hallucinati Verified 02/18/20 23:26 [From Cymbalta] ons Home Meds: Home Meds Prazosin HCl [Prazosin] 2 mg PO BEDTIME PRN 05/01/14 [History] Omeprazole [Prilosec] 20 mg PO BID PRN 09/04/14 [History] Escitalopram [Lexapro] 20 mg PO DAILY 12/19/18 [History] Albuterol/Ipratropium [Combivent Respimat] 1 puff IH Q4H PRN 05/24/19 [History] Albuterol Sulfate [Proair Hfa] 2 puff IH Q6H PRN 08/09/19 [History] OLANZapine [ZyPREXA] 2.5 mg PO BEDTIME 08/09/19 [History] Acetaminophen [Tylenol Extra Strength] 1,000 mg PO Q6H tablet 11/07/19 [Rx] traMADol [Ultram] 50 mg PO Q6H PRN 02/18/20 [History] Past Medical History HEENT History: Reports: Impaired Vision Other HEENT History: Dry eyes Cardiovascular History: Reports: None Respiratory History: Reports: COPD, Pneumonia, Recurrent Gastrointestinal History: Reports: Cholelithiasis, Diverticulosis, GERD, Other (See Below) Other Gastrointestinal History: omentum infection Genitourinary History: Reports: Pyelonephritis CONSULTING NETWORKING ENGINEER History: Reports: , Spontaneous Musculoskeletal History: Reports: Arthritis, Back Pain, Chronic, Fibromyalgia Neurological History: Reports: Concussion, Migraines Psychiatric History: Reports: Anxiety, Depression, Suicide Attempt Endocrine/Metabolic History: Reports: Obesity/BMI 30+, Other (See Below) Other Endocrine/Metabolic History: Graves disease in the s Hematologic History: Reports: Anemia, B12 Deficiency, Iron Deficiency Immunologic History: Reports: Immunosuppression, Other (See Below) Other Immunologic History: Durkum's disease Oncologic (Cancer) History: Reports: None Dermatologic History: Reports: Other (See Below) Other Dermatologic History: scabies - Infectious Disease History Infectious Disease History: Reports: Chicken Pox, Measles, Mumps - Past Surgical History Other HEENT Surgeries/Procedures: wisdom teeth removal Cardiovascular Surgical History: Reports: None Respiratory Surgical History: Reports: None GI Surgical History: Reports: Appendectomy, Cholecystectomy, Colonoscopy, EGD, Hernia Repair/Other, Small Bowel, Other (See Below) Other GI Surgeries/Procedures: fatty tumor removed, colon resection for diverticulitis Female Surgical History: Reports: Breast Biopsy, Hysterectomy, Salpingo- Oophorectomy Endocrine Surgical History: Reports: None Neurological Surgical History: Reports: None Musculoskeletal Surgical History: Reports: Arthroscopic Procedure, Knee Replacement, Shoulder Surgery, Other (See Below) Other Musculoskeletal Surgeries/Procedures:: Left knee replacement 10/13/16, hand surgery (tumor removed) Oncologic Surgical History: Reports: None Dermatological Surgical History: Reports: None Social & Family History - Family History Family Medical History: Unobtainable - Tobacco Use Tobacco Use Status *Q: Current Every Day Tobacco User Years of Tobacco use: 30 Packs/Tins Daily: 0.5 - Caffeine Use Caffeine Use: Reports: None Caffeine Use Comment: 2-3 daily - Alcohol Use Days Per Week of Alcohol Use: 2 Number of Drinks Per Day: 1 Total Drinks Per Week: 2 - Recreational Drug Use Recreational Drug Use: Yes Recreational Drug Type: Reports: Marijuana/Hashish Recreational Drug Use Frequency: Rarely ED ROS GENERAL - Review of Systems Review Of Systems: See Below Constitutional: Reports: No Symptoms Respiratory: Reports: No Symptoms Cardiovascular: Reports: No Symptoms GI/Abdominal: Reports: Abdominal Pain (wall tenderness). Denies: Constipation, Diarrhea, Melena, Nausea, Vomiting Skin: Reports: Lumps (soft tissue over abdomen) Neurological: Reports: No Symptoms ED EXAM, GI/ABD - Physical Exam Exam: See Below Exam Limited By: No Limitations General Appearance: Alert, WD/WN, No Apparent Distress Respiratory/Chest: No Respiratory Distress, Lungs Clear, Normal Breath Sounds, No Accessory Muscle Use Cardiovascular: Regular Rate, Rhythm, No Edema GI/Abdominal Exam: Normal Bowel Sounds, Soft, No Distention, Tender (just over a very soft ? lipoma near the umbilicus, no redness). No: Hernia Extremities: No Pedal Edema Neurological: Alert, Oriented, CN II-XII Intact, Normal Cognition, No Motor/Sensory Deficits Psychiatric: Normal Affect, Normal Mood Skin Exam: Warm, Dry, Intact, Normal Color, No Rash Course - Vital Signs Last Recorded V/S: Last Vital Signs Temp 35.8 C L 02/18/20 23:21 Pulse 76 02/18/20 23:21 Resp 18 02/18/20 23:21 BP 135/80 02/18/20 23:21 Pulse Ox 96 02/18/20 23:21 - Orders/Labs/Meds Orders: Active Orders 24 hr Category Date Time Status Lidocaine 5% [Lidoderm 5%] Med 02/19/20 00:20 Once 700 mg TOP ONETIME ONE Meds: Medications Discontinued Medications Generic Name Dose Route Start Last Admin Trade Name Rafael PRN Reason Stop Dose Admin Ketorolac Tromethamine 60 mg 02/18/20 23:55 02/19/20 00:00 Toradol IM 02/18/20 23:56 60 mg ONETIME ONE Administration Departure - Departure Time of Disposition: 00:34 Disposition: Home, Self-Care 01 Condition: Good Clinical Impression: Dercum's disease - Discharge Information *PRESCRIPTION DRUG MONITORING PROGRAM REVIEWED*: No *COPY OF PRESCRIPTION DRUG MONITORING REPORT IN PATIENT FANY: No Referrals: Magali Manuel DO [Primary Care Provider] - Additional Instructions: If the lidocaine patch helps your pain you can either discuss with your primary care provider or buy them over the counter. See Dr. Villarreal as scheduled. Sepsis Event Note (ED) - Evaluation Sepsis Screening Result: No Definite Risk - Focused Exam Vital Signs: Vital Signs Temp Pulse Resp BP Pulse Ox 02/18/20 23:21 35.8 C L 76 18 135/80 96 - My Orders Last 24 Hours: My Active Orders 02/19/20 00:20 Lidocaine 5% [Lidoderm 5%] 700 mg TOP ONETIME ONE - Assessment/Plan Last 24 Hours: My Active Orders 02/19/20 00:20 Lidocaine 5% [Lidoderm 5%] 700 mg TOP ONETIME ONE
== END 2020-02-19 01:04 | disposition home or self-care (01) ==
LOC: JP.ED 23:08
DX: E88.2 Lipomatosis, not elsewhere classified (principal); J44.9 Chronic obstructive pulmonary disease, unspecified; K21.9 Gastro-esophageal reflux disease without esophagitis; F41.9 Anxiety disorder, unspecified; F32.9 Major depressive disorder, single episode, unspecified; F17.210 Nicotine dependence, cigarettes, uncomplicated; Z88.0 Allergy status to penicillin; Z91.048 Other nonmedicinal substance allergy status; Z88.8 Allergy status to other drugs, medicaments and biological substances; Z88.7 Allergy status to serum and vaccine; Z88.1 Allergy status to other antibiotic agents; Z88.6 Allergy status to analgesic agent; Z79.899 Other long term (current) drug therapy
CPT/HCPCS: 96372; 99283; A9270; J1885

== ENCOUNTER 2020-03-14 07:00 | Inpatient (IN) | payer MEDICAID ==
[~2020-03-14 07:00] MED LIST changes: -Dexamethasone 4 MG/ML SDV ONE; -Glycopyrrolate 0.2 MG/ML 5 ML MDV ONE; -Neostigmine Methylsulfate 1 MG/ML 5 ML Syringe ONE; -Ondansetron 4 MG/2 ML SDV ONE; -Propofol 200 MG/20 ML SDV ONE; -Rocuronium 50 MG/5 ML Vial ONE; -Succinylcholine 200 MG/10 ML MDV ONE; -fentaNYL 250 MCG/5 ML SDV ONE
[2020-03-14] MEDS ORDERED: HYDROmorphone/Normal Saline 15 MG/30 ML PCA IV PRN (07:26)
[2020-03-14] MEDS ORDERED: Acetaminophen 500 MG Tab PO ONE (07:30)
[2020-03-14] MEDS ORDERED: Dextrose 5%-Lactated Ringers 1,000 ML IV SCH (07:30)
[2020-03-14] MEDS ORDERED: Albuterol/Ipratropium 3.0-0.5 MG/3 ML Neb Soln NEB ONE (07:30)
[2020-03-14] MEDS: Gabapentin 400 MG Cap PO SCH ×4 (07:38→21:36)
[2020-03-14] MEDS ORDERED: Rocuronium 50 MG/5 ML Vial ONE (07:39)
[2020-03-14] MEDS ORDERED: Neostigmine Methylsulfate 1 MG/ML 5 ML Syringe ONE (07:39)
[2020-03-14] MEDS ORDERED: Propofol 200 MG/20 ML SDV ONE (07:39)
[2020-03-14] MEDS ORDERED: Glycopyrrolate 0.2 MG/ML 5 ML MDV ONE (07:39)
[2020-03-14] MEDS ORDERED: Succinylcholine 200 MG/10 ML MDV ONE (07:39)
[2020-03-14] MEDS ORDERED: fentaNYL 250 MCG/5 ML SDV ONE ×2 (07:39→09:40)
[2020-03-14] MEDS ORDERED: Dexamethasone 4 MG/ML SDV ONE (07:39)
[2020-03-14] MEDS ORDERED: Ondansetron 4 MG/2 ML SDV ONE (07:39)
[2020-03-14] MEDS ORDERED: Naloxone 0.4 MG/ML SDV IV PRN (08:30)
[2020-03-14] MEDS ORDERED: Linezolid 600 MG in Premix Bag 1 BAG IV ONE (08:45)
[2020-03-14] MEDS ORDERED: Ketamine 50 MG in Sodium Chloride 0.9% 49.5 ML IV SCH (09:00)
[2020-03-14] MEDS ORDERED: Ropivacaine 46 ML, dexAMETHasone 8 MG, EPINEPHrine 0.4 MG, Sodium Chloride 0.9% 31.6 ML NERVRT SCH ×4 (09:00)
[2020-03-14] MEDS ORDERED: Ketamine 500 MG/5 ML MDV IV SCH (09:00)
[2020-03-14] MEDS ORDERED: hydrOXYzine HCL 100 MG/2 ML SDV IM ONE (10:39)
[2020-03-14] MEDS: Dextrose 5%-Lactated Ringers 1,000 ML IV SCH ×2 (11:45→18:30)
[2020-03-14] MEDS ORDERED: Ondansetron 4 MG/2 ML SDV IVPUSH PRN (12:01)
[2020-03-14] MEDS ORDERED: hydrOXYzine HCL 100 MG/2 ML SDV IM PRN (12:03)
[2020-03-14] MEDS ORDERED: Albuterol/Ipratropium 3.0-0.5 MG/3 ML Neb Soln INH PRN (12:03)
[2020-03-14] MEDS: Albuterol/Ipratropium 3.0-0.5 MG/3 ML Neb Soln INH SCH ×2 (14:54→21:35)
[2020-03-14] MEDS: Pantoprazole 40 MG Tab.CR PO SCH (15:36)
[2020-03-14] MEDS: Escitalopram 20 MG Tab PO SCH (15:36)
[2020-03-14] MEDS: Ibuprofen 600 MG Tab PO SCH ×2 (16:26→21:36)
[2020-03-14] MEDS: Acetaminophen 500 MG Tab PO SCH ×2 (16:26→21:35)
[2020-03-14] MEDS: Prazosin 1 MG Cap PO SCH (21:35)
[2020-03-14] MEDS: Linezolid 600 MG in Premix Bag 1 BAG IV SCH (21:35)
[2020-03-14] MEDS: OLANZapine 5 MG Tab PO SCH (21:36)
[2020-03-15] MEDS: Dextrose 5%-Lactated Ringers 1,000 ML IV SCH (02:16)
[2020-03-15] MEDS: Acetaminophen 500 MG Tab PO SCH ×4 (04:12→21:28)
[2020-03-15] MEDS: Ibuprofen 600 MG Tab PO SCH ×4 (04:12→21:28)
[2020-03-15] MEDS ORDERED: Dextrose 5%-Lactated Ringers 1,000 ML IV SCH (07:15)
[2020-03-15] MEDS: Albuterol/Ipratropium 3.0-0.5 MG/3 ML Neb Soln INH SCH ×4 (07:23→20:00)
--- NOTE | 2020-03-15 08:20 | PN ---
DATE OF SERVICE: 03/15/2020 SUBJECTIVE: Maylin is postop day 1. She has been up ambulating. Pain has been controlled with her CAR RETARDER OPERATOR. Espitia was discontinued. Oral intake was 4452. Urine output 2475. Vital signs have been stable. Has no questions or concerns. OBJECTIVE: GENERAL: Maylin Rodarte is a pleasant 59-year-old female. VITAL SIGNS: TPR is 96.4, 81, 16, blood pressure 118/63. HEENT: Negative. NECK: Supple. HEART: Regular rate and rhythm. LUNGS: Clear. ABDOMEN: Dressings dry and intact. Abdominal binder is on. EXTREMITIES: SCDs are on. ASSESSMENT: Open repair of recurrent incarcerated incisional hernia, recurrent incarcerated umbilical hernia, peritoneal implant over right mid abdominal wall 8 cm. Date of procedure: 03/14/2020. Surgeon: Lisandro Villarreal MD. PLAN: 1. Discontinue CAR RETARDER OPERATOR, continuous pulse ox. 2. Dilaudid 2 to 4 mg every 4 hours p.r.n. pain. 3. Decrease IV rate to 80 mL per hour. 4. Regular diet. 5. May shower. 6. Colace 100 mg p.o. b.i.d. 7. Dulcolax 10 mg tabs b.i.d. p.o. May discontinue when the patient has a bowel movement. Piper Montoya PA-C /[id number]
[2020-03-15] MEDS: HYDROmorphone 2 MG Tab PO PRN ×4 (08:51→21:28)
[2020-03-15] MEDS: Pantoprazole 40 MG Tab.CR PO SCH (08:52)
[2020-03-15] MEDS: Docusate Sodium 100 MG Cap PO SCH ×2 (08:53→20:00)
[2020-03-15] MEDS: Gabapentin 400 MG Cap PO SCH ×3 (08:53→19:59)
[2020-03-15] MEDS: Escitalopram 20 MG Tab PO SCH (08:53)
[2020-03-15] MEDS: Bisacodyl 5 MG Tab PO SCH ×2 (08:53→20:00)
[2020-03-15] MEDS: Linezolid 600 MG in Premix Bag 1 BAG IV SCH ×2 (08:55→20:01)
[2020-03-15] MEDS: Prazosin 1 MG Cap PO SCH (20:00)
[2020-03-15] MEDS: OLANZapine 5 MG Tab PO SCH (20:00)
[2020-03-16] MEDS ORDERED: Ondansetron 4 MG Tab.DIS PO ONE (00:54)
[2020-03-16] MEDS: HYDROmorphone 2 MG Tab PO PRN (01:56)
[2020-03-16] MEDS ORDERED: Sodium Chloride 0.9% 80 ML IV STA (03:18)
[2020-03-16] MEDS ORDERED: Iopamidol 612 MG/ML 150 ML Bottle IV STA (03:18)
--- NOTE | 2020-03-16 04:14 | CRLCT ---
INDICATION: Increased abdominal pain status post hernia repair 2 days prior. TECHNIQUE: Axial images were obtained from the diaphragm to the pubic symphysis. Reformats were obtained in the coronal and sagittal plane. IV Contrast: 134 cc Isovue-300 Oral Contrast: None COMPARISON: Abdomen and pelvis CT 08/09/2019 FINDINGS: Lower chest: Bandlike areas of discoid atelectasis lung bases. Liver: Unremarkable. Normal in size and attenuation. No masses. Gallbladder and bile ducts: Status post cholecystectomy. Spleen: Unremarkable. Normal in size without mass. Pancreas: Unremarkable. No mass or inflammation. Adrenal glands: Unremarkable. No nodules. Kidneys: Unremarkable. No masses, stones, or hydronephrosis. Vasculature: Atherosclerosis without abdominal aortic aneurysm. GI tract: The patient is status post interval ventral hernia repair within new ventral hernia mesh in the midline. There is associated pneumoperitoneum as well as a small amount of fluid. Much of this tracks along the anterior abdomen. Free fluid is low-density. There a few areas of slightly more loculated fluid although without significant rim enhancement. Note is also made of extensive subcutaneous air across the anterior abdomen as well as skin fabio. Some subcutaneous hematoma noted measuring 2.0 centimeters. The patient is status post small bowel surgery and sigmoid surgery without evidence of obstruction. Pelvis: Bladder unremarkable. No adnexal mass. Prior left inguinal hernia repair. Bones: Unremarkable for age. IMPRESSION: 1. Status post ventral hernia repair with small amount of free fluid with some loculated areas although without discrete abscess. Small amount of pneumoperitoneum, within expected limits for postoperative day 2. 2. Extensive subcutaneous air, presumably secondary to the recent surgery with 2.0 centimeter subcutaneous hematoma deep to the staple line. 3. Status post small bowel and sigmoid surgery without evidence for obstruction. Please note that all CT scans at this facility use dose modulation, iterative reconstruction, and/or weight-based dosing when appropriate to reduce radiation dose to as low as reasonably achievable. Dictated by Santo Luna MD @ Mar 16 2020 4:04AM Signed by Dr. Santo Luna @ Mar 16 2020 4:12AM
[2020-03-16] MEDS: Acetaminophen 500 MG Tab PO SCH (04:45)
[2020-03-16] MEDS: Ibuprofen 600 MG Tab PO SCH (04:45)
[2020-03-16] MEDS ORDERED: HYDROmorphone 1 MG/ML Syringe IVPUSH PRN (06:22)
[2020-03-16] MEDS ORDERED: Naloxone 0.4 MG/ML SDV IVPUSH PRN (07:05)
[2020-03-16] MEDS: Albuterol/Ipratropium 3.0-0.5 MG/3 ML Neb Soln INH SCH ×4 (07:31→20:09)
--- NOTE | 2020-03-16 08:18 | PN ---
DATE OF SERVICE: 03/16/2020 SUBJECTIVE: Maylin is postop day 2. Yesterday, she had 3 emesis totaling 700 mL. Prior to that, she had oral intake of 2059 and output of 2900. She started the emesis after getting prune juice with butter from nursing staff. She continues to feel nauseated, is quite bloated, reports pain on the right side of her abdomen. Vital signs have been stable. Afebrile. REVIEW OF SYSTEMS: Remainder of review of systems negative for any pertinent positives and negatives. OBJECTIVE: GENERAL: Maylin Rodarte is a pleasant 59-year-old female. She is somewhat confused, very sleepy. VITAL SIGNS: TPR at 0149, 97.9, 108, 20, blood pressure 116/54. HEENT: Negative. NECK: Supple. HEART: Regular rate and rhythm. LUNGS: Clear. ABDOMEN: Quite distended and tender. Binder is on. EXTREMITIES: Without peripheral edema. ASSESSMENT: 1. Postop ileus. CT scan negative. 2. Open repair of recurrent incarcerated incisional hernia, recurrent incarcerated umbilical hernia, and removal of peritoneal implant over right mid abdominal wall, 8 cm. Date of procedure: 03/14/2020. Surgeon: Lisandro Villarreal MD. PLAN: 1. Place NG. 2. Dilaudid EVAPORATOR HELPER. 3. Abdominal one-view upright and chest upright stat after NG is placed. Check CBC, CMP, mag, phos in a.m. Protonix 40 mg IV daily. Pulse oximetry continuous. Abdominal 2- view flat and upright series x7. 4. Increase D5 LR to 125 mL/hour. 5. Hold Tylenol, Colace, Senna Plus, oral Dilaudid, and Motrin. Discontinue regular diet. Protonix 40 mg IV q.24 hours. Continue good pulmonary function with use of incentive spirometer. Keep head of bed elevated 30 to 45 degrees. We will evaluate p.r.n. or in a.m. Piper Montyoa PA-C /[id number]
[2020-03-16] MEDS: HYDROmorphone/Normal Saline 15 MG/30 ML PCA IV SCH (08:53)
--- NOTE | 2020-03-16 09:08 | CRLCR ---
HISTORY: Nasogastric tube placement. TECHNIQUE: One-view the abdomen. COMPARISON: CT 03/16/2020. FINDINGS: Nasogastric tube terminates within the mid stomach. Abdominal wall fabio. Findings of hernia repair. Soft tissue emphysema involving the abdominal wall correlating with that on recent CT. Left lower lobe atelectasis. IMPRESSION: 1. Nasogastric tube terminates within the mid stomach. 2. Soft tissue emphysema involving the abdominal wall correlating with that seen on recent CT. Dictated by Oscar Meadows MD @ 03/16/2020 9:05:45 AM Dictated by: Oscar Meadows MD @ 03/16/2020 09:05:49 (Electronically Signed)
[2020-03-16] MEDS: Pantoprazole 40 MG Vial IVPUSH SCH (10:22)
[2020-03-16] MEDS: Gabapentin 400 MG Cap PO SCH ×3 (10:22→20:06)
[2020-03-16] MEDS: Escitalopram 20 MG Tab PO SCH (10:23)
[2020-03-16] MEDS: Docusate Sodium 100 MG Cap PO SCH ×2 (10:23→20:05)
[2020-03-16] MEDS: Dextrose 5%-Lactated Ringers 1,000 ML IV SCH ×2 (14:19→21:44)
[2020-03-16] MEDS: Prazosin 1 MG Cap PO SCH (20:06)
[2020-03-16] MEDS: OLANZapine 5 MG Tab PO SCH (20:07)
--- NOTE | 2020-03-17 05:10 | CRLCR ---
Indication: Postop ileus Technique: Abdomen 2 view, 4 films Comparison: Abdomen 03/16/2020 Findings/Impression: Nasogastric tube is present with the tip in the body of the stomach. Bowel loops are upper normal in caliber with air seen to the level of the sigmoid colon. Skin fabio and hernia mesh re- demonstrated in the midline. Lucency at the diaphragm consistent with small residual pneumoperitoneum. Extensive subcutaneous emphysema redemonstrated, similar to the prior exam. Dictated by Santo Luna MD @ Mar 17 2020 5:06AM Signed by Dr. Santo Luna @ Mar 17 2020 5:09AM
[2020-03-17] MEDS: Dextrose 5%-Lactated Ringers 1,000 ML IV SCH ×2 (05:33→16:30)
[2020-03-17] MEDS ORDERED: Potassium Phosphates 30 MMOLE in Sodium Chloride 0.9% 250 ML IV ONE (06:45)
[2020-03-17] MEDS ORDERED: Lactated Ringers 500 ML IV ONE (06:45)
[2020-03-17] MEDS ORDERED: Metoclopramide 10 MG/2 ML SDV IVPUSH SCH (07:00)
[2020-03-17] MEDS ORDERED: Azithromycin 125 MG in Sodium Chloride 0.9% 150 ML IV SCH (07:00)
--- NOTE | 2020-03-17 07:08 | PN ---
DATE OF SERVICE: 03/17/2020 SUBJECTIVE: Maylin has been having just ice chips. Has not started passing flatus. Her pain is controlled with the SOLAR SALES REP. Labs this morning; hemoglobin 10, calcium 7.8, mag 1.5. Has no other concerns or questions. OBJECTIVE: GENERAL: Maylin is a pleasant 59-year-old female. VITAL SIGNS: TPR at 0407 is 99, 111, 18, blood pressure 104/57, and O2 is 93% by pulse oximetry on 2 L of O2. During the night; her blood pressure was 86/43 and 80/50 with a pulse 88 to 107. It did come up in 3 hours to 104/57, pulse was 111. HEENT: Negative. NECK: Supple. HEART: Regular rate and rhythm. LUNGS: Clear. ABDOMEN: Remains to be distended, but it is a little bit softer. NG in place. NG put out 1300 of a thick bile. There is thick dark green substance. EXTREMITIES: Without peripheral edema. ASSESSMENT: 1. Postoperative ileus. 2. Open repair of recurrent incarcerated incisional hernia, recurrent incarcerated umbilical hernia and removal of peritoneal implant over right mid abdominal wall, 8 cm. DATE OF PROCEDURE: 03/14/2020. SURGEON: Lisandro Villarreal MD. PLAN: 1. Magnesium 2 g IV q.6 hours x48 hours. 2. Lactated Ringer's 500 mL bolus to run over 2 hours. 3. K-Phos 30 mmol IV 1 time. 4. Colace hold. 5. Reglan 5 mg q.6 hours scheduled. 6. Zithromax 125 mg IV daily. 7. Check CBC, CMP, and phos in a.m. 8. Encouraged ambulation and use of incentive spirometer. 9. We will evaluate p.r.n. or in a.m. Piper Montoya PA-C /[id number]
[2020-03-17] MEDS: Metoclopramide 10 MG/2 ML SDV IVPUSH SCH ×3 (07:18→20:06)
[2020-03-17] MEDS: Albuterol/Ipratropium 3.0-0.5 MG/3 ML Neb Soln INH SCH ×4 (07:36→20:50)
[2020-03-17] MEDS: Potassium Phos in 0.9 % NaCl 15 MMOL in Premix Bag 1 BAG IV SCH ×4 (08:05→10:21)
[2020-03-17] MEDS: Magnesium Sulfate/Water 2 GM in Premix Bag 1 BAG IV SCH ×3 (08:09→20:05)
[2020-03-17] MEDS: Pantoprazole 40 MG Vial IVPUSH SCH (08:12)
[2020-03-17] MEDS: Gabapentin 400 MG Cap PO SCH ×3 (09:32→20:05)
[2020-03-17] MEDS: Escitalopram 20 MG Tab PO SCH (09:32)
[2020-03-17] MEDS: Azithromycin 125 MG in Sodium Chloride 0.9% 150 ML IV SCH (10:00)
[2020-03-17] MEDS: Prazosin 1 MG Cap PO SCH (20:04)
[2020-03-17] MEDS: OLANZapine 5 MG Tab PO SCH (20:04)
[2020-03-18] MEDS: Dextrose 5%-Lactated Ringers 1,000 ML IV SCH ×3 (02:36→22:17)
[2020-03-18] MEDS: Magnesium Sulfate/Water 2 GM in Premix Bag 1 BAG IV SCH ×4 (02:37→20:30)
[2020-03-18] MEDS: Metoclopramide 10 MG/2 ML SDV IVPUSH SCH ×4 (02:38→20:31)
[2020-03-18] MEDS: HYDROmorphone/Normal Saline 15 MG/30 ML PCA IV SCH (04:48)
--- NOTE | 2020-03-18 05:21 | CRLCR ---
Indication: Postoperative ileus Technique: Upright and supine views of the abdomen Comparison: Upright and supine abdominal radiographs 03/17/2020 Findings/Impression: 1. Distal end of gastric tube lies in the stomach. 2. Again noted are surgical changes of ventral hernia repair with subcutaneous emphysema in the abdominal wall. 3. There is persistent mild pneumoperitoneum, similar to prior. 4. No abnormally distended air-filled small bowel loops are appreciated. There is mild scattered in the colon. Dictated by Jocelyn Holden MD @ Mar 18 2020 5:14AM Signed by Dr. Jocelyn Holden @ Mar 18 2020 5:19AM
[2020-03-18] MEDS: Albuterol/Ipratropium 3.0-0.5 MG/3 ML Neb Soln INH SCH ×4 (07:12→20:32)
--- NOTE | 2020-03-18 07:15 | PN ---
DATE OF SERVICE: 03/18/2020 SUBJECTIVE: Maylin had a temp max of 99.7. NG put out 200 mL, output 1700, has not had a bowel movement in the past 24 hours. X-ray did show some right atelectasis. Pain is controlled with SEED TECHNICIAN. REVIEW OF SYSTEMS: Remainder of review of systems negative for any pertinent positives and negatives. OBJECTIVE: GENERAL: Maylin Rodarte is a pleasant 59-year-old female. VITAL SIGNS: TPR at 0244; 97.6, 93, 18. Blood pressure 93/51. HEENT: Negative. NECK: Supple. HEART: Regular rate and rhythm. LUNGS: Revealed decreased breath sounds in the right lower lobe. No wheezing, rales or rhonchi. ABDOMEN: Distended. Abdominal binder is on. EXTREMITIES: Without peripheral edema. ASSESSMENT: Right lung atelectasis, postoperative ileus and open repair of recurrent incarcerated incisional hernia, recurrent incarcerated umbilical hernia and removal of peritoneal implant over the right abdominal wall, 8 cm. Date of procedure 03/14/2020. Surgeon: Lisandro Villarreal MD. PLAN: 1. Discontinue NG. 2. Continue ice chips with sips of water sparingly. 3. Lasix 10 mg IV 1 time now. 4. Ambulate frequently and use incentive spirometer frequently as directed for right atelectasis. 5. We will evaluate p.r.n. or in a.m. Piper Montoya PA-C /[id number]
[2020-03-18] MEDS ORDERED: Furosemide 20 MG/2 ML VIAL IVPUSH ONE (08:00)
[2020-03-18] MEDS: Escitalopram 20 MG Tab PO SCH (09:29)
[2020-03-18] MEDS: Gabapentin 400 MG Cap PO SCH ×3 (09:29→20:32)
[2020-03-18] MEDS: Pantoprazole 40 MG Vial IVPUSH SCH (09:29)
[2020-03-18] MEDS: Azithromycin 125 MG in Sodium Chloride 0.9% 150 ML IV SCH (09:36)
[2020-03-18] MEDS: Acetaminophen 500 MG Tab PO SCH ×3 (09:54→22:14)
[2020-03-18] MEDS: Prazosin 1 MG Cap PO SCH (20:31)
[2020-03-18] MEDS: OLANZapine 5 MG Tab PO SCH (20:32)
[2020-03-19] MEDS: Metoclopramide 10 MG/2 ML SDV IVPUSH SCH ×4 (02:28→19:41)
[2020-03-19] MEDS: Magnesium Sulfate/Water 2 GM in Premix Bag 1 BAG IV SCH (02:31)
[2020-03-19] MEDS: Acetaminophen 500 MG Tab PO SCH ×4 (05:04→21:13)
--- NOTE | 2020-03-19 05:57 | CRLCR ---
Indication: Postoperative gliosis Technique: Upright and supine views of the abdomen Comparison: Abdominal radiograph 03/18/2020 Findings/Impression: 1. No abnormally distended small bowel loops are demonstrated. Scattered air is noted in the colon. Gastric tube has been removed. 2. Surgical changes are again noted in the abdomen. Abdominal wall subcutaneous emphysema similar to prior. Pneumoperitoneum is no longer appreciated. Dictated by Jocelyn Holden MD @ Mar 19 2020 5:53AM Signed by Dr. Jocelyn Holden @ Mar 19 2020 5:56AM
[2020-03-19] MEDS: Dextrose 5%-Lactated Ringers 1,000 ML IV SCH (06:39)
[2020-03-19] MEDS: Albuterol/Ipratropium 3.0-0.5 MG/3 ML Neb Soln INH SCH ×5 (07:22→20:23)
[2020-03-19] MEDS: Pantoprazole 40 MG Vial IVPUSH SCH (08:08)
[2020-03-19] MEDS: Gabapentin 400 MG Cap PO SCH ×4 (08:08→20:23)
[2020-03-19] MEDS: Escitalopram 20 MG Tab PO SCH (08:08)
[2020-03-19] MEDS: Azithromycin 125 MG in Sodium Chloride 0.9% 150 ML IV SCH (10:21)
[2020-03-19] MEDS: Bisacodyl 5 MG Tab PO SCH ×3 (10:21→20:23)
--- NOTE | 2020-03-19 12:23 | PN ---
DATE OF SERVICE: 03/19/2020 SUBJECTIVE: Maylin's upper GI and flat plate x-ray looked good. Abdomen is less distended. She passed flatus 3 times. Vital signs have been stable. Oral intake on sips of clear liquids and ice chips, 1600, and urine output 2000. REVIEW OF SYSTEMS: Remainder of review of systems negative for any pertinent positives or negatives. OBJECTIVE: GENERAL: Maylin Rodarte is a pleasant 59-year-old female. VITAL SIGNS: TPR at 0234; 99, 78, 18, blood pressure 123/56, and O2 sats by pulse oximetry is 93%. HEENT: Negative. NECK: Supple. HEART: Regular rate and rhythm. LUNGS: Reveal decreased breath sounds in bases, right greater than left. ABDOMEN: Dressing is dry and intact. Aquacel is on. EXTREMITIES: Without peripheral edema. ASSESSMENT: 1. Postoperative ileus. 2. Right lung atelectasis. 3. Open repair of recurrent incarcerated incisional hernia. 4. Repair of recurrent incarcerated umbilical hernia. 5. Removal of peritoneal implant over the right abdominal wall, 8 cm. DATE OF PROCEDURE: 03/14/2020. SURGEON: Lisandro Villarreal MD. POSTOPERATIVE DIAGNOSES: 1. Recurrent incarcerated incisional hernia. 2. Recurrent incarcerated umbilical hernia. 3. Peritoneal implant over the right abdominal wall, 8 cm. PLAN: 1. Clear liquid diet. Change Aquacel dressing. Dulcolax tablets 10 mg p.o. b.i.d. to stop when patient has a bowel movement. Continue to aggressively work on incentive spirometer and ambulation. 2. We will evaluate p.r.n. or in the a.m. Piper Montoya PA-C /[id number]
[2020-03-19] MEDS ORDERED: oxyCODONE 5 MG Tab PO PRN (13:47)
[2020-03-19] MEDS: Linezolid 600 MG in Premix Bag 1 BAG IV SCH (14:41)
[2020-03-19] MEDS: Ibuprofen 600 MG Tab PO PRN (14:42)
[2020-03-19] MEDS: Meropenem 500 MG in Sodium Chloride 0.9% 50 ML IV SCH ×2 (15:54→21:12)
[2020-03-19] MEDS: HYDROmorphone 2 MG Tab PO PRN ×2 (18:04→23:26)
[2020-03-19] MEDS: Cyclobenzaprine 10 MG Tab PO PRN (19:38)
[2020-03-19] MEDS: OLANZapine 5 MG Tab PO SCH ×2 (19:41→20:23)
[2020-03-19] MEDS: Prazosin 1 MG Cap PO SCH (21:11)
[2020-03-20] MEDS: Linezolid 600 MG in Premix Bag 1 BAG IV SCH ×2 (03:12→14:58)
[2020-03-20] MEDS: Metoclopramide 10 MG/2 ML SDV IVPUSH SCH ×4 (03:12→20:06)
[2020-03-20] MEDS: Acetaminophen 500 MG Tab PO SCH ×4 (03:16→22:01)
[2020-03-20] MEDS: Meropenem 500 MG in Sodium Chloride 0.9% 50 ML IV SCH ×4 (03:16→22:01)
[2020-03-20] MEDS: Ibuprofen 600 MG Tab PO PRN (03:54)
[2020-03-20] MEDS: Cyclobenzaprine 10 MG Tab PO PRN (03:54)
--- NOTE | 2020-03-20 05:43 | CRLCR ---
Indication: Postop ileus, hernia repair Technique: Upright and supine AP views of the abdomen Comparison: Abdominal radiograph 03/19/2020 Findings/Impression: 1. Scattered air in the colon is similar to prior. No abnormally distended small bowel loops are demonstrated. 2. No free air under the diaphragm on upright view. Surgical changes are again noted, with subcutaneous emphysema is in the abdominal. 3. Small right pleural effusion. Left lung base atelectasis. Dictated by Jocelyn Holden MD @ Mar 20 2020 5:39AM Signed by Dr. Jocelyn Holden @ Mar 20 2020 5:42AM
[2020-03-20] MEDS ORDERED: Iopamidol 612 MG/ML 150 ML Bottle IV STA (06:43)
[2020-03-20] MEDS ORDERED: Sodium Chloride 0.9% 80 ML IV STA (06:44)
[2020-03-20] MEDS: Albuterol/Ipratropium 3.0-0.5 MG/3 ML Neb Soln INH SCH ×4 (07:24→21:54)
[2020-03-20] MEDS: Bisacodyl 5 MG Tab PO SCH ×2 (08:44→22:01)
[2020-03-20] MEDS: Escitalopram 20 MG Tab PO SCH (09:10)
--- NOTE | 2020-03-20 09:10 | PN ---
DATE OF SERVICE: 03/20/2020 SUBJECTIVE: Maylin states her pain is controlled. She states that she has had 1 bowel movement and is passing flatus. Oral intake 2390 and urine output 2500. There is an area of redness and warmth on the right side of her incision. This was marked and looks like it is decreasing. REVIEW OF SYSTEMS: Remainder of review of systems negative for any pertinent positives and negatives. OBJECTIVE: GENERAL: Maylin Rodarte is a pleasant 59-year-old female. She is alert, orientated. Looks like she is feeling much better today. VITAL SIGNS: TPR is 97.1; 79; 18; blood pressure 124/55. HEENT: Negative. NECK: Supple. HEART: Regular rate and rhythm. LUNGS: Clear. ABDOMEN: Soft. Incision fabio intact. There is an area extending to the right of her staple line that is reddened in the irregular pattern, but is pink, slightly warm. Abdominal binder has been on. EXTREMITIES: Without peripheral edema. ASSESSMENT: 1. Postop ileus, resolving. 2. Right lung atelectasis. 3. Open repair of recurrent incarcerated hernia. a. Repair of recurrent incarcerated umbilical hernia. b. Removal of peritoneal implant over the right abdominal wall, 8 cm. 4. Date of procedure: 03/14/2020. Surgeon: Lisandro Villarreal MD. PLAN: 1. Check CT of abdomen and pelvis with IV and oral contrast stat. Call Dr. Villarreal with the results. 2. Check CBC, CMP, mag, phos in a.m. 3. Continue to use incentive spirometer and to ambulate. 4. We will evaluate p.r.n. or in a.m. Piper Montoya PA-C /[id number]
[2020-03-20] MEDS: Gabapentin 400 MG Cap PO SCH ×3 (09:11→22:01)
[2020-03-20] MEDS: Pantoprazole 40 MG Vial IVPUSH SCH (09:12)
--- NOTE | 2020-03-20 09:14 | CRLCT ---
INDICATION: Abscess. Status post recent hernia repair. TECHNIQUE: CT of the abdomen and pelvis with 134 cc Isovue-300 IV contrast. Coronal and sagittal reconstructions. COMPARISON: CT of the abdomen and pelvis 03/16/2020. FINDINGS: Postoperative changes of ventral hernia repair with mesh. There is extensive subcutaneous emphysema within the anterior and lateral abdominal sheth which is decreased compared to prior exam. There is a large peripherally enhancing gas and fluid collection in the anterior abdomen compatible with an abscess. This measures approximately 5 x 19 x 18 cm (series 2, image 69 and series 4, image 75). An additional component of the abscess extends inferiorly within the right abdomen with another collection anterior to the bladder in the pelvis (series 2, image 124 and series 3, image 23). These collections are connected. Small amount of intraperitoneal free air layering in the upper abdomen. Small amount of non loculated subcutaneous fluid in the midline anterior abdominal wall. The liver, spleen, pancreas, and adrenal glands are negative. Hepatic and portal veins are patent. Cholecystectomy. No biliary dilation. Symmetric enhancement of the kidneys. No hydronephrosis. No obstructing urinary calculi. Distended urinary bladder. No bowel dilation. Small bowel anastomosis in the left abdomen. Sigmoid colon anastomosis. Probable appendectomy. Fluid throughout the colon which can be seen with diarrhea. Aortoiliac vascular calcifications. Mildly prominent gastrohepatic and periaortic lymph nodes may be reactive. No lymphadenopathy by size criteria. There is a stable small soft tissue nodule in the right retroperitoneum adjacent to the psoas muscle of uncertain significance (series 2, image 79). New small bilateral pleural effusions. Consolidation in the left lower lobe may represent atelectasis or infiltrate. Scattered atelectasis throughout remainder of the lung bases. IMPRESSION: 1. Large abscess in the anterior abdomen measuring approximately 5 x 19 x 18 cm. There is additional loculation which extends into the anterior pelvis. 2. Extensive subcutaneous emphysema in the abdominal wall which has decreased compared to prior exam. 3. Small amount of intraperitoneal free air in the upper abdomen. 4. Fluid-filled colon which can be seen with diarrhea. 5. New small bilateral pleural effusions. 6. Consolidation in the left lower lobe may represent atelectasis or infiltrate. Please note that all CT scans at this facility use dose modulation, iterative reconstruction, and/or weight-based dosing when appropriate to reduce radiation dose to as low as reasonably achievable. Dictated by Piper Zamora MD @ Mar 20 2020 8:50AM Signed by Dr. Piper Zamora @ Mar 20 2020 9:13AM
[2020-03-20] MEDS ORDERED: Ketamine 50 MG in Sodium Chloride 0.9% 49.5 ML IV SCH (11:00)
[2020-03-20] MEDS: HYDROmorphone 2 MG Tab PO PRN ×3 (11:33→22:08)
[2020-03-20] MEDS: Potassium Phos in 0.9 % NaCl 15 MMOL in Premix Bag 1 BAG IV SCH ×8 (11:54→18:04)
[2020-03-20] MEDS: OLANZapine 5 MG Tab PO SCH (21:55)
[2020-03-20] MEDS: Prazosin 1 MG Cap PO SCH (21:55)
[2020-03-21] MEDS: Dextrose 5%-Lactated Ringers 1,000 ML IV SCH ×3 (02:32→22:52)
[2020-03-21] MEDS: Linezolid 600 MG in Premix Bag 1 BAG IV SCH ×2 (02:36→16:04)
[2020-03-21] MEDS: Metoclopramide 10 MG/2 ML SDV IVPUSH SCH ×4 (02:40→20:52)
[2020-03-21] MEDS: HYDROmorphone 2 MG Tab PO PRN (02:44)
[2020-03-21] MEDS: Meropenem 500 MG in Sodium Chloride 0.9% 50 ML IV SCH ×4 (04:20→22:43)
[2020-03-21] MEDS: Acetaminophen 500 MG Tab PO SCH ×4 (04:20→22:42)
[2020-03-21] MEDS ORDERED: Bupivacaine 0.5% 50 ML MDV ONE (05:39)
[2020-03-21] MEDS ORDERED: Meropenem 500 MG SDV ONE (05:39)
[2020-03-21] MEDS ORDERED: Lidocaine 1% with EPINEPHrine 1:100,000 50 ML MDV ONE (05:39)
[2020-03-21] MEDS ORDERED: fentaNYL 250 MCG/5 ML SDV ONE ×4 (06:16→09:26)
[2020-03-21] MEDS ORDERED: Ondansetron 4 MG/2 ML SDV ONE (06:17)
[2020-03-21] MEDS ORDERED: Propofol 200 MG/20 ML SDV ONE (06:17)
[2020-03-21] MEDS ORDERED: Rocuronium 50 MG/5 ML Vial ONE (06:17)
[2020-03-21] MEDS ORDERED: Dexamethasone 4 MG/ML SDV ONE (06:17)
[2020-03-21] MEDS ORDERED: Glycopyrrolate 0.2 MG/ML 5 ML MDV ONE (06:17)
[2020-03-21] MEDS ORDERED: Neostigmine Methylsulfate 1 MG/ML 5 ML Syringe ONE (06:17)
[2020-03-21] MEDS ORDERED: Succinylcholine 200 MG/10 ML MDV ONE (06:17)
[2020-03-21] MEDS ORDERED: Lactated Ringers 1,000 ML ONE (06:36)
[2020-03-21] MEDS ORDERED: Naloxone 0.4 MG/ML SDV IVPUSH PRN (07:03)
[2020-03-21] MEDS ORDERED: diphenhydrAMINE 25 MG Cap PO PRN (07:03)
[2020-03-21] MEDS ORDERED: Ondansetron 4 MG/2 ML SDV IVPUSH PRN (07:03)
[2020-03-21] MEDS ORDERED: diphenhydrAMINE 50 MG/ML SDV IVPUSH PRN (07:03)
--- NOTE | 2020-03-21 07:10 | CRLCR ---
INDICATION: Postoperative ileus COMPARISON: Two-view abdomen dated 03/20/2020 TECHNIQUE: Two view abdomen. FINDINGS: There is continued evidence of subcutaneous emphysema within the abdominal wall but I do not see clear cut evidence of free intraperitoneal air. There are air-filled mildly dilated loops of small bowel with air-fluid levels. Findings would be consistent with a postoperative ileus. He is tender to the recent exam. No pathologic calcifications are identified. There is left basilar pulmonary atelectasis. IMPRESSION: No interval change in the appearance of the abdomen. The mildly dilated bowel loops would be compatible with postoperative ileus. There is persistent subcutaneous emphysema which may reflect laparoscopic surgery. Dictated by Adonay Juarez MD @ 03/21/2020 7:07:56 AM Dictated by: Adonay Juarez MD @ 03/21/2020 07:08:01 (Electronically Signed)
[2020-03-21] MEDS: HYDROmorphone/Normal Saline 15 MG/30 ML PCA IV PRN (07:20)
[2020-03-21] MEDS ORDERED: Ketamine 500 MG/5 ML MDV IV SCH (08:00)
[2020-03-21] MEDS ORDERED: Ketamine 50 MG in Sodium Chloride 0.9% 49.5 ML IV SCH (08:00)
[2020-03-21] MEDS ORDERED: Ropivacaine 46 ML, dexAMETHasone 8 MG, EPINEPHrine 0.4 MG, Sodium Chloride 0.9% 31.6 ML NERVRT SCH ×4 (08:00)
[2020-03-21] MEDS ORDERED: Labetalol 20 MG/4 ML Syringe ONE (09:09)
[2020-03-21] MEDS: Albuterol/Ipratropium 3.0-0.5 MG/3 ML Neb Soln INH SCH ×4 (10:14→20:56)
[2020-03-21] MEDS: Pantoprazole 40 MG Tab.CR PO SCH (10:41)
[2020-03-21] MEDS: Bisacodyl 5 MG Tab PO SCH ×2 (10:42→21:03)
[2020-03-21] MEDS: Gabapentin 400 MG Cap PO SCH ×3 (10:42→21:02)
[2020-03-21] MEDS: Escitalopram 20 MG Tab PO SCH (10:42)
[2020-03-21] MEDS: Nystatin Susp 100,000 Unit/ML 5 ML UD Cup PO SCH ×3 (10:43→22:43)
--- NOTE | 2020-03-21 13:12 | PN ---
DATE OF SERVICE: 03/21/2020 SUBJECTIVE: Maylin will be going down to OR this morning. She has a fluid collection and abscess in her anterior abdomen. Currently, n.p.o. Denies pain. Vital signs have been stable. She has been n.p.o. since midnight. Remainder of review of systems negative for any pertinent positives and negatives. The patient reports a red, sore tongue. OBJECTIVE: GENERAL: Maylin Rodarte is a pleasant 59-year-old female. VITAL SIGNS: TPR 97.9, 98, 16; blood pressure 179/77. HEENT: Negative. NECK: Supple. HEART: Regular rate and rhythm. LUNGS: Clear. ABDOMEN: There is redness noted to the right of the incision, pink, warm. Abdominal binder has been on. EXTREMITIES: Without peripheral edema. ASSESSMENT: 1. Abdominal abscess. 2. Postop ileus, resolved. 3. Right lung atelectasis. 4. Open repair of recurrent incarcerated hernia: a. Repair of recurrent incarcerated umbilical hernia. b. Removal of peritoneal implant over the right abdominal wall, 8 cm. 5. Date of procedure 03/14/2020. Surgeon: Lisandro Villarreal MD. PLAN: Orders to be written postoperatively. Piper Montoya PA-C /[id number]
[2020-03-21] MEDS: OLANZapine 5 MG Tab PO SCH (21:02)
[2020-03-21] MEDS: Prazosin 1 MG Cap PO SCH (21:03)
[2020-03-22] MEDS: Metoclopramide 10 MG/2 ML SDV IVPUSH SCH ×4 (02:53→20:43)
[2020-03-22] MEDS: Linezolid 600 MG in Premix Bag 1 BAG IV SCH ×2 (02:56→15:58)
[2020-03-22] MEDS: Acetaminophen 500 MG Tab PO SCH ×4 (04:18→22:30)
[2020-03-22] MEDS: Meropenem 500 MG in Sodium Chloride 0.9% 50 ML IV SCH ×4 (04:19→22:26)
[2020-03-22] MEDS: Nystatin Susp 100,000 Unit/ML 5 ML UD Cup PO SCH ×4 (05:08→22:30)
[2020-03-22] MEDS: Albuterol/Ipratropium 3.0-0.5 MG/3 ML Neb Soln INH SCH ×4 (07:08→21:00)
[2020-03-22] MEDS: HYDROmorphone/Normal Saline 15 MG/30 ML PCA IV PRN (07:24)
[2020-03-22] MEDS: Pantoprazole 40 MG Tab.CR PO SCH (07:37)
[2020-03-22] MEDS: Docusate Sodium 100 MG Cap PO SCH ×2 (09:43→20:51)
[2020-03-22] MEDS: Bisacodyl 5 MG Tab PO SCH ×2 (09:43→20:51)
[2020-03-22] MEDS: Gabapentin 400 MG Cap PO SCH ×3 (09:43→20:51)
[2020-03-22] MEDS: Escitalopram 20 MG Tab PO SCH (09:43)
[2020-03-22] MEDS: Dextrose 5%-Lactated Ringers 1,000 ML IV SCH (11:03)
[2020-03-22] MEDS: OLANZapine 5 MG Tab PO SCH (20:50)
[2020-03-22] MEDS: Prazosin 1 MG Cap PO SCH (20:51)
[2020-03-23] MEDS: Dextrose 5%-Lactated Ringers 1,000 ML IV SCH (00:27)
[2020-03-23] MEDS: Metoclopramide 10 MG/2 ML SDV IVPUSH SCH ×4 (02:20→19:29)
[2020-03-23] MEDS: Linezolid 600 MG in Premix Bag 1 BAG IV SCH (02:22)
[2020-03-23] MEDS: Acetaminophen 500 MG Tab PO SCH ×4 (03:58→21:10)
[2020-03-23] MEDS: Nystatin Susp 100,000 Unit/ML 5 ML UD Cup PO SCH ×5 (04:00→21:10)
[2020-03-23] MEDS: Meropenem 500 MG in Sodium Chloride 0.9% 50 ML IV SCH ×4 (04:52→21:11)
[2020-03-23] MEDS: HYDROmorphone/Normal Saline 15 MG/30 ML PCA IV PRN (04:54)
[2020-03-23] MEDS ORDERED: Bupivacaine 0.5% 50 ML MDV ONE (06:20)
[2020-03-23] MEDS ORDERED: Lidocaine 1% with EPINEPHrine 1:100,000 50 ML MDV ONE (06:20)
[2020-03-23] MEDS ORDERED: Meropenem 500 MG SDV ONE (06:20)
[2020-03-23] MEDS ORDERED: Propofol 200 MG/20 ML SDV ONE ×2 (07:21→07:49)
[2020-03-23] MEDS ORDERED: fentaNYL 100 MCG/2 ML SDV ONE (07:21)
[2020-03-23] MEDS ORDERED: Lidocaine 1% 2 ML ONE (07:30)
[2020-03-23] MEDS ORDERED: Ropivacaine 46 ML, dexAMETHasone 8 MG, EPINEPHrine 0.4 MG, Sodium Chloride 0.9% 31.6 ML NERVRT SCH ×4 (07:45)
[2020-03-23] MEDS: Pantoprazole 40 MG Tab.CR PO SCH (09:02)
[2020-03-23] MEDS: Albuterol/Ipratropium 3.0-0.5 MG/3 ML Neb Soln INH SCH ×4 (09:25→21:08)
[2020-03-23] MEDS ORDERED: Dextrose 5%-Lactated Ringers 1,000 ML IV SCH (09:42)
--- NOTE | 2020-03-23 10:05 | OR ---
DATE OF PROCEDURE: 03/14/2020 SURGEON: Lisandro Villarreal MD PREOPERATIVE DIAGNOSIS: Recurrent incisional hernia. POSTOPERATIVE DIAGNOSES: 1. Recurrent incarcerated incisional hernia. 2. Recurrent incarcerated umbilical hernia. 3. Peritoneal implant underlying right mid abdominal wall (8 cm). OPERATIVE PROCEDURE: Exploratory laparotomy with: 1. Repair of recurrent incarcerated incisional hernia with mesh (99917, 26334). 2. Repair of incarcerated recurrent umbilical hernia (03574). 3. Excision of peritoneal nodule overlying the right abdominal wall (16117). 4. Placement of Interceed mesh to limit recurrent adhesion formation between pelvic and abdominal wall and underlying viscera (36402). ANESTHESIA: General. INDICATION FOR PROCEDURE: This is a 59-year-old presenting with recurrent incisional hernia located in the epigastrium. The plan was to proceed with open repair with mesh technique. Potential risks including bleeding, infection, injury to underlying viscera, problems with mesh becoming infected or the hernia recurring as well as the remote possibility of cardiopulmonary, septic, or hemorrhagic complications leading to were discussed, and the patient wishes to proceed. DETAILS OF PROCEDURE: The patient was taken to the operating room, and after general endotracheal anesthesia was induced, a Espitia catheter inserted, and the abdomen prepped and draped. The previous upper midline incision was then made extending from the umbilicus roughly a handsbreadth toward the xiphoid. This was carried down through the skin and subcutaneous tissue. The hernia sac was encountered and then dissected down to the level of the fascia inferiorly. This extended down to the area underlying the umbilicus, i.e. this combined the incisional and umbilical hernia. Once the hernia sac was dissected free, this was opened, some incarcerated components of both sections of the hernia were encountered with the adhesions being taken down and the viscera being replaced back into the peritoneal cavity. Upon its dissection, the hernia sacs were then removed. During the course of dissection, a roughly 8 cm linear peritoneal implant on the underside of the right abdominal wall adjacent to the incision was encountered. This again measured 8 cm and was excised and sent for histologic evaluation. Significant adhesions were then dissected circumferentially such that would allow adequate mesh placement. Once this was accomplished, a Ventrio ST hernia patch measuring 15.5 cm x 25.7 cm was selected. Based on the configuration of the hernia, the decision was made to fully split the long axis in the transverse orientation in 5 cm intervals around its circumference. 2-0 Vicryl sutures were placed on the polypropylene side of the mesh and the mesh was soaked in antibiotic-containing saline solution. Stab wounds were then placed on the abdominal wall where the sutures would be pulled up, thus fixing the mesh well away from the fascial defect. The left side of the abdomen was then initially used for fixation of the mesh. Once this was uncovered, 2 Interceed meshes were placed, one on the left and one on the right side to limit recurrent adhesion formation between the pelvic and abdominal wall, intraabdominal mesh, and the underlying viscera. Once these were in place, the remaining sutures were then pulled up and the mesh then extended in a position well away from the fascial defect at all the locations. The mesh to this point had been intermittently irrigated with a meropenem and Zyvox-containing saline solution. Once again, it was irrigated with that. The underside of the mesh itself was then fixed to the abdominal wall circumferentially with titanium tacking screws as well and at that point no further problems were noted. The midline fascia was then approximated with #2 Vicryl stitch which included the repair of the herniated fascial layer. The subcutaneous tissue was then approximated with some 3-0 and 4-0 Vicryl stitch deep and fabio for the skin. Prior to closure, bilateral transversus abdominis plane blocks had been placed and the incision anesthetized also with some 1% lidocaine mixed with Marcaine. The patient was taken to the recovery room in satisfactory condition. Lisandro Villarreal MD /[id number]
[2020-03-23] MEDS: Docusate Sodium 100 MG Cap PO SCH ×2 (10:17→21:07)
[2020-03-23] MEDS: Escitalopram 20 MG Tab PO SCH (10:22)
[2020-03-23] MEDS: Lactobacillus Rhamnosus GG (Probiotic) Cap PO SCH ×2 (10:22→21:07)
[2020-03-23] MEDS: Gabapentin 400 MG Cap PO SCH ×3 (10:22→21:09)
--- NOTE | 2020-03-23 12:02 | PN ---
DATE OF SERVICE: 03/22/2020 The patient has been afebrile with stable vital signs. No major problems have been noted overnight. The Gram stain and cultures did not show any organisms, but gram-negative rods are growing out on both sets of cultures. We will continue the meropenem and Zyvox results. Otherwise, the patient with hemoglobin of 8.1 this morning. We will give her 1 unit of packed RBCs. Her albumin was quite low, we will begin supplementing the albumin over the next 3 days as well. The patient to undergo a delayed primary closure of abdominal incision tomorrow. Lisandro Villarreal MD /[id number]
[2020-03-23] MEDS: Prazosin 1 MG Cap PO SCH (21:08)
[2020-03-23] MEDS: OLANZapine 5 MG Tab PO SCH (21:09)
[2020-03-24] MEDS: Metoclopramide 10 MG/2 ML SDV IVPUSH SCH ×4 (02:44→20:03)
[2020-03-24] MEDS: Meropenem 500 MG in Sodium Chloride 0.9% 50 ML IV SCH ×4 (03:28→21:39)
[2020-03-24] MEDS: Acetaminophen 500 MG Tab PO SCH ×4 (04:17→21:42)
[2020-03-24] MEDS: HYDROmorphone/Normal Saline 15 MG/30 ML PCA IV PRN (05:33)
[2020-03-24] MEDS: Nystatin Susp 100,000 Unit/ML 5 ML UD Cup PO SCH ×4 (05:36→21:42)
[2020-03-24] MEDS: Albuterol/Ipratropium 3.0-0.5 MG/3 ML Neb Soln INH SCH ×4 (07:02→20:16)
--- NOTE | 2020-03-24 07:30 | PN ---
DATE OF SERVICE: 03/23/2020 The patient has been afebrile with stable vital signs. She has moved her bowels overnight. Her cultures came back showing E coli, so we will discontinue the Zyvox and add Azactam for 2nd antibiotic covering the gram-negative rods. Otherwise, we will add some probiotics. Espitia catheter will be coming out today and delayed primary closure of abdominal incision today. Lisandro Villarreal MD /[id number]
[2020-03-24] MEDS: Docusate Sodium 100 MG Cap PO SCH ×2 (09:04→20:04)
[2020-03-24] MEDS: Lactobacillus Rhamnosus GG (Probiotic) Cap PO SCH ×2 (09:04→20:04)
[2020-03-24] MEDS: Pantoprazole 40 MG Tab.CR PO SCH (09:04)
[2020-03-24] MEDS: Escitalopram 20 MG Tab PO SCH (09:05)
[2020-03-24] MEDS: Gabapentin 400 MG Cap PO SCH ×3 (09:05→20:17)
--- NOTE | 2020-03-24 10:07 | PN ---
DATE OF SERVICE: 03/24/2020 SUBJECTIVE: Maylin reports her pain is controlled. She is sitting up in the chair. Vital signs have been stable. Oral intake 1580, urine output 4500. On ANTHONY drain 1 to 4, she put out 16, 6, 63, and 50 respectively, and she has had 2 bowel movements. REVIEW OF SYSTEMS: Remainder review of systems negative for any pertinent positives and negatives. OBJECTIVE: GENERAL: Maylin Rodarte is a pleasant, 59-year-old female. She is alert and orientated, quite talkative. VITAL SIGNS: TPR is 97.5, 95, 16, and blood pressure 126/64. HEENT: Negative. NECK: Supple. HEART: Regular rate and rhythm. LUNGS: Clear. ABDOMEN: Soft. ANTHONY drains intact and Aquacel dressing is on. ASSESSMENT: Exploratory laparotomy with: 1. Repair of recurrent incarcerated incisional hernia with mesh. 2. Repair of incarcerated recurrent umbilical hernia. 3. Excision of peritoneal nodule overlying the right abdominal wall. 4. Placement of Interceed mesh to limit recurrent adhesion formation between pelvic and abdominal wall and underlying viscera. Postoperative Diagnoses: 1. Recurrent incarcerated incisional hernia. 2. Recurrent incarcerated umbilical hernia. 3. Peritoneal implant overlying right mid abdominal wall. 4. Date of procedure: 03/14/2020. Surgeon: Lisandro Villarreal MD. Postop ileus. 1. Exploratory laparotomy with: a. Drainage of infected intraabdominal seroma. b. Removal of intraperitoneal mesh. c. Repair of recurrent incisional hernia. Postoperative Diagnoses: 1. Infected intraabdominal seroma with contaminated mesh and recurrent incisional hernia. Date of procedure: 03/21/2020. Surgeon: Lisandro Villarreal MD. 2. Delayed primary closure for open abdominal incision. 03/23/2020. Surgeon: Lisandro Villarreal MD. PLAN: 1. Discontinue TALENT BUYER. 2. Dilaudid 2 to 4 mg every 4 hours p.r.n. pain. 3. Continue antibiotics of meropenem and for wound culture of E coli and Klebsiella pneumoniae. 4. Discontinue TALENT BUYER and continuous pulse ox. 5. We will evaluate p.r.n. or in a.m. Piper Montoya PA-C /[id number]
[2020-03-24] MEDS: HYDROmorphone 2 MG Tab PO PRN ×3 (10:28→19:56)
[2020-03-24] MEDS: Ibuprofen 600 MG Tab PO PRN (13:24)
[2020-03-24] MEDS ORDERED: Furosemide 40 MG/4 ML VIAL IVPUSH ONE (15:35)
[2020-03-24] MEDS: Prazosin 1 MG Cap PO SCH (20:04)
[2020-03-24] MEDS: OLANZapine 5 MG Tab PO SCH (20:05)
[2020-03-24] MEDS: Cyclobenzaprine 10 MG Tab PO PRN (21:44)
[2020-03-25] MEDS: HYDROmorphone 2 MG Tab PO PRN ×5 (00:52→21:34)
[2020-03-25] MEDS: Metoclopramide 10 MG/2 ML SDV IVPUSH SCH ×2 (00:59→08:10)
[2020-03-25] MEDS: Meropenem 500 MG in Sodium Chloride 0.9% 50 ML IV SCH ×2 (04:03→09:23)
[2020-03-25] MEDS: Acetaminophen 500 MG Tab PO SCH ×4 (04:45→21:37)
[2020-03-25] MEDS: Nystatin Susp 100,000 Unit/ML 5 ML UD Cup PO SCH ×4 (05:03→21:25)
[2020-03-25] MEDS: Albuterol/Ipratropium 3.0-0.5 MG/3 ML Neb Soln INH SCH ×4 (07:09→21:37)
[2020-03-25] MEDS ORDERED: Levofloxacin 500 MG Tab PO SCH (07:30)
[2020-03-25] MEDS: Gabapentin 400 MG Cap PO SCH ×3 (08:09→21:24)
[2020-03-25] MEDS: Docusate Sodium 100 MG Cap PO SCH ×2 (08:09→21:24)
[2020-03-25] MEDS: Escitalopram 20 MG Tab PO SCH (08:09)
[2020-03-25] MEDS: Lactobacillus Rhamnosus GG (Probiotic) Cap PO SCH ×2 (08:10→21:22)
[2020-03-25] MEDS: Pantoprazole 40 MG Tab.CR PO SCH (08:10)
[2020-03-25] MEDS ORDERED: LORazepam 1 MG Tab PO ONE ×2 (09:00→13:00)
[2020-03-25] MEDS ORDERED: Furosemide 40 MG Tab PO ONE (09:00)
[2020-03-25] MEDS: Potassium Chloride 10 MEQ Cap.ER PO SCH ×2 (09:22→16:18)
--- NOTE | 2020-03-25 11:32 | PN ---
DATE OF SERVICE: 03/25/2020 SUBJECTIVE: Maylin has had some fluid retention with a little bit of shortness of breath and high blood pressure. She was given some Lasix yesterday. Her total output was 4850. She did have four BMs. Blood pressure has been running within normal limits and afebrile. Oral intake 1800 and total urine output was 5250. Her four ANTHONY drains put out serosanguineous drainage of 10, 20, 60, and 45 respectively. Pain has been controlled. REVIEW OF SYSTEMS: Remainder of review of systems negative for any pertinent positives and negatives. OBJECTIVE: GENERAL: Maylin is a pleasant 59-year-old female. She is alert and orientated. VITAL SIGNS: TPR 96.8, 91, 18; blood pressure 131/59. HEENT: Negative. NECK: Supple. HEART: Regular rate and rhythm. LUNGS: Clear. ABDOMEN: Negative. Aquacel dressings on. Four ANTHONY drains are intact. EXTREMITIES: Without peripheral edema. ASSESSMENT: Exploratory laparotomy with: 1. Repair of recurrent incarcerated incisional hernia with mesh. 2. Repair of incarcerated recurrent umbilical hernia. 3. Excision of peritoneal nodule overlying the right abdominal wall. 4. Placement of Interceed mesh to limit recurrent adhesion formation between the pelvic and abdominal wall and underlying viscera. Postoperative Diagnoses: 1. Recurrent incarcerated incisional hernia. 2. Recurrent incarcerated umbilical hernia. 3. Peritoneal implant overlying right mid abdominal wall. 4. Date of procedure, 03/14/2020. Surgeon, Lisandro Villarreal MD. Postop ileus. Exploratory laparotomy with: 1. Drainage of infected intraabdominal seroma. 2. Removal of intraperitoneal mesh. 3. Repair of incisional hernia. Postoperative Diagnoses: 1. Infected intraabdominal seroma with contaminated mesh and recurrent incisional hernia. Date of procedure, 03/21/2020. Surgeon, Lisandro Villarreal. 2. Delayed primary closure for open abdominal incision, 03/23/2020. Surgeon, Lisandro Villarreal MD. PLAN: 1. Lasix 40 mg p.o. daily. 2. KCl 60 mEq p.o. today. 3. CBC, CMP, mag, phos in a.m. 4. Discontinue ANTHONY drains x4. Give Ativan 1 mg p.o. about 30 minutes before removal of ANHTONY drains. 5. Continue use of incentive spirometer and ambulation. IV was discontinued because of infiltration. Oral IV antibiotic will be ordered after consulting with Lisandro Villarreal MD. We will evaluate p.r.n. or in a.m. Piper Montoya PA-C /[id number]
[2020-03-25] MEDS: Ibuprofen 600 MG Tab PO PRN (18:02)
[2020-03-25] MEDS: Cyclobenzaprine 10 MG Tab PO PRN (19:34)
[2020-03-25] MEDS: Prazosin 1 MG Cap PO SCH (21:23)
[2020-03-25] MEDS: OLANZapine 5 MG Tab PO SCH (21:24)
[2020-03-26] MEDS: HYDROmorphone 2 MG Tab PO PRN (02:18)
[2020-03-26] MEDS: Acetaminophen 500 MG Tab PO SCH (04:00)
[2020-03-26] MEDS: Nystatin Susp 100,000 Unit/ML 5 ML UD Cup PO SCH ×2 (06:00→08:39)
[2020-03-26] MEDS: Albuterol/Ipratropium 3.0-0.5 MG/3 ML Neb Soln INH SCH (07:11)
[2020-03-26 07:13] VITALS: PULSE 88
[2020-03-26 07:26] VITALS: BP 115/61
[2020-03-26] MEDS: Potassium Chloride 10 MEQ Cap.ER PO SCH (08:38)
[2020-03-26] MEDS: Escitalopram 20 MG Tab PO SCH (08:40)
[2020-03-26] MEDS: Pantoprazole 40 MG Tab.CR PO SCH (08:40)
[2020-03-26] MEDS: Docusate Sodium 100 MG Cap PO SCH (08:40)
[2020-03-26] MEDS: Gabapentin 400 MG Cap PO SCH (08:40)
[2020-03-26] MEDS: Lactobacillus Rhamnosus GG (Probiotic) Cap PO SCH (08:41)
--- NOTE | 2020-03-26 11:25 | DISCH ---
ADMISSION DIAGNOSIS: Recurrent incisional hernia. DISCHARGE DIAGNOSES: Exploratory laparotomy with: 1. Repair of recurrent incarcerated incisional hernia with mesh. 2. Recurrent incarcerated umbilical hernia. 3. Excision of peritoneal nodule overlying the right abdominal wall. 4. Placement of Interceed mesh to limit recurrent adhesion formation between the pelvic and abdominal wall and underlying viscera. POSTOPERATIVE DIAGNOSES: 1. Recurrent incarcerated incisional hernia. 2. Recurrent incarcerated umbilical hernia. 3. Peritoneal implant overlying right mid abdominal wall. 4. Date of procedure: 03/14/2020. Surgeon: Lisandro Villarreal MD. 5. Postop ileus. 6. Exploratory laparotomy with: a. Drainage of infected intraabdominal seroma. b. Removal of intraperitoneal mesh. c. Repair of incisional hernia. 7. Infected intraabdominal seroma with contaminated mesh and recurrent incisional hernia. Date of procedure: 03/21/2020. Surgeon: Lisandro Villarreal MD. 8. Delayed primary closure for open abdominal incision on 03/23/2020. Lisandro Villarreal MD. HISTORY: Maylin Rodarte is a 59-year-old female who had a recurrent incarcerated incisional hernia. She had her surgery on 03/14/2020. She had no operative complications. She did develop a postop ileus, an NG was placed, and she was n.p.o. The ileus did resolve, but then she developed a temperature, and CT was obtained and did show an abscess. Second surgery was on 03/21/2020. No operative complications. She was covered with appropriate antibiotics and delayed primary closure on 03/23. After her delayed primary closure, afebrile, she did have a bowel movement. The cultures did show Escherichia coli, and she was started on Azactam in addition to meropenem. On 03/25/2020, IV infiltrated. She was started on oral Ceftin, tolerated it well. She did have some fluid retention and was given Lasix and supplemented with KCl. ANTHONY drains were discontinued. Pain was well managed with the oral Dilaudid and she was able to be discharged to home on 03/26/2020 with no complications. PHYSICAL EXAMINATION: GENERAL: Maylin Rodarte is a pleasant 59-year-old female. VITAL SIGNS: Height is 5 feet 4.96 inches, weight is 240 pounds, BMI is 40. TPR is 97.5, 97, 20, blood pressure 115/61. HEENT: Negative. NECK: Supple. HEART: Regular rate and rhythm. LUNGS: Clear. ABDOMEN: Aquacel dressings on. 4x4s over the 4 ANTHONY drain sites. Abdominal binder is on. EXTREMITIES: Without peripheral edema. DISPOSITION: Discharged to home. CONDITION: Stable and improving. FOLLOWUP: With Lisandro Villarreal MD, on 04/02/2020 at 12 p.m. HOME MEDICATIONS: 1. Ceftin 500 mg oral b.i.d. for 10 days. 2. Culturelle 2 capsules oral twice daily for 1 month. 3. Dilaudid 2 mg 1 every 6 hours p.r.n. pain, #28. 4. Lasix 40 mg oral daily. 5. Motrin 600 mg oral q.6 hours p.r.n. pain. 6. Nystatin 5 mL oral 4 times a day for 10 days. 7. Potassium chloride 40 mEq once daily. 8. Tylenol Extra Strength 1000 mg every 6 hours p.r.n. pain. 9. To resume home medication: a. ProAir 2 puffs every 6 hours p.r.n. shortness of breath. b. Combivent 1 puff inhalation every 4 hours p.r.n. wheezing. c. Vitamin D3 mcg oral daily. d. Flexeril 10 mg oral 3 times a day for spasms. e. Lexapro 20 mg oral daily. f. Diflucan 100 mg oral daily. g. Neurontin 800 mg oral 3 times a day. h. Ativan 0.5 mg oral 3 times a day p.r.n. anxiety. i. Zyprexa 2.5 mg oral at bedtime. j. Prilosec 20 mg oral twice daily p.r.n. heartburn. k. Zofran ODT 4 mg every 8 hours p.r.n. nausea. l. Prazosin 2 mg oral at bedtime. m. Rizatriptan benzoate 10 mg oral p.r.n. headache, may repeat in 2 hours if needed. n. Imitrex 25 mg oral daily p.r.n. migraine headache 2 tablets 1 time as needed for migraine, may repeat in 2 hours. o. Senna S 1 daily. p. Restasis 1 drop in each eye twice daily. q. Discontinue tramadol while on Dilaudid pain medication. DIET: Usual diet as tolerated. ACTIVITY: No lifting greater than 10 pounds for 6 weeks. Driving: Do not drive for 1 week. Shower/bathing: May shower. DISCHARGE INSTRUCTIONS: Notify provider if any fever, increased pain, swelling, redness, nausea, or vomiting. Wound incision care, keep site clean and dry. Wear abdominal binder for 6 weeks and then as tolerated. Take off Aquacel dressing on 03/29/2020. SPECIAL INSTRUCTION: Use incentive spirometer 10 times every hour while awake for 1 week. /[id number]
--- NOTE | 2020-03-30 11:08 | OR ---
DATE OF PROCEDURE: 03/21/2020 SURGEON: Lisandro Villarreal MD PREOPERATIVE DIAGNOSIS: Probable intraabdominal infection below previously placed intraabdominal mesh. POSTOPERATIVE DIAGNOSES: 1. Infected intraperitoneal seroma with contaminated intraperitoneal mesh. 2. Recurrent incisional hernia. OPERATIVE PROCEDURES: Exploratory laparotomy with: 1. Drainage of infected intraabdominal seroma (41386). 2. Removal of intraperitoneal mesh (34184). 3. Repair of recurrent incisional hernia (06903). ANESTHESIA: General. EXPLOSIVE OPERATOR GRENADE: Piper Montoya PA-C. INDICATIONS FOR PROCEDURE: The patient is recently status post mesh repair of a large incisional hernia. She has developed now some abdominal distention and discomfort, and a CT scan showed a large fluid collection with some air within it, though the mesh does have some possible infected seroma or postoperative hematoma. Plan is to proceed with exploratory laparotomy with most likely drainage of the infected fluid collection and concurrent removal of the mesh. Potential risks including bleeding, infection, injury to underlying viscera, as well as the possibility of cardiopulmonary, septic, or hemorrhagic complications leading to were discussed. I think that the hernia would need to be re-repaired without mesh and a high recurrence rate would be associated with this was also gone over, and the patient wishes to proceed. DETAILS OF PROCEDURE: The patient was taken to the operating room and placed in a supine position. After general endotracheal anesthesia was induced, a Espitia catheter was inserted and the abdomen prepped and draped. The previously placed midline fabio and subcutaneous tissue and fascial sutures were then all removed. As one entered the area in the deeper subcutaneous tissue, some thorne fluid was present. Cultures of this were obtained. As one then entered the preperitoneal cavity, there was obviously some thin, infected-type material present over the mesh and then underlying the mesh. The mesh was then detached from some of the attachments. There was no underlying visceral injury that could be seen, and in fact the wall of omentum surrounding the entire fluid collection there were no GI tract contents evident. The mesh was then detached from its attachment to the abdominal wall the rest of the way and delivered from the field. The area was then irrigated with broad-spectrum antibiotic containing saline solution until all return was unclear. Four Sheng-Kern drains were placed, two on each side, one going up, and one going down in the midline fascia which included repair of recurrent incisional hernia was then accomplished with a #2-0 Vicryl stitch . Bilateral transversus abdominis plane blocks had been placed, and the midline fascia was then approximated with a #2 Vicryl stitch. The fascial closure appeared to be reasonably satisfactory, and the skin and subcutaneous tissue were packed open for delayed primary closure in 48 to 72 hours as closure at this time would be associated with very high risk of wound infection. The patient was taken to the recovery room in satisfactory condition. Physician professional nursing assistant, Piper Montoya, played an essential role in assisting in this case, helping to position the patient, retract structures as needed, as well as suturing and cutting sutures when indicated. Her presence improved patient safety and decreased operative time. Lisandro Villarreal MD /[id number]
--- NOTE | 2020-03-30 12:11 | OR ---
DATE OF PROCEDURE: 03/23/2020 SURGEON: Lisandro Villarreal MD PREOPERATIVE DIAGNOSIS: Open abdominal incision. POSTOPERATIVE DIAGNOSIS: Open abdominal incision. OPERATIVE PROCEDURE: Delayed primary closure of open abdominal incision. ANESTHESIA: Local plus IV sedation. INDICATION FOR PROCEDURE: The patient is status post drainage of an infected seroma, and at that time, the skin and subcutaneous tissue were left open for a planned delayed primary closure at this time. The potential risks of the procedure including bleeding and infection were reviewed, and the patient wishes to proceed. DETAILS OF PROCEDURE: The patient was taken to the operating room and placed in the supine position. IV sedation was administered after which the operative dressing was taken down and the wound inspected and found to be clean. The wound was then prepped and draped and anesthetized with 1% lidocaine with Marcaine and irrigated with meropenem-containing saline solution. Using ultrasound guidance, bilateral transversus abdominis plane blocks were placed, and the subcutaneous tissue was then approximated with 2 layers of 3-0 and 4-0 Vicryl stitch deep and fabio for the skin. Dressing was applied. The patient was taken to the recovery room in satisfactory condition. Lisandro Villarreal MD /[id number]
== END 2020-03-26 10:15 | disposition home health service (06) | DRG 353 ==
LOC: JP.SDS 07:00 → JP.MS 07:00 → EDSTATUS 08:45 → JP.MS 10:50
PROVIDERS: ADMIT Surgery; ATTEND Surgery
PROC: 0WUF0JZ Supplement Abdominal Wall with Synthetic Substitute, Open Approach (ICD-10-PCS; principal; 2020-03-14)
PROC: 0WUF0JZ Supplement Abdominal Wall with Synthetic Substitute, Open Approach (ICD-10-PCS; 2020-03-14)
PROC: 0DBW0ZZ Excision of Peritoneum, Open Approach (ICD-10-PCS; 2020-03-14)
PROC: 3E0M05Z Introduction of Adhesion Barrier into Peritoneal Cavity, Open Approach (ICD-10-PCS; 2020-03-14)
PROC: XW033N5 Introduction of Meropenem-vaborbactam Anti-infective into Peripheral Vein, Percutaneous Approach, New Technology Group 5 (ICD-10-PCS; 2020-03-21)
PROC: 0W9G0ZZ Drainage of Peritoneal Cavity, Open Approach (ICD-10-PCS; 2020-03-21)
PROC: 0WQF0ZZ Repair Abdominal Wall, Open Approach (ICD-10-PCS; 2020-03-21)
PROC: 0WCG0ZZ Extirpation of Matter from Peritoneal Cavity, Open Approach (ICD-10-PCS; 2020-03-21)
PROC: 30233N1 Transfusion of Nonautologous Red Blood Cells into Peripheral Vein, Percutaneous Approach (ICD-10-PCS; 2020-03-22)
PROC: 0WQF0ZZ Repair Abdominal Wall, Open Approach (ICD-10-PCS; 2020-03-23)
DX: K43.0 Incisional hernia with obstruction, without gangrene (principal); K65.1 Peritoneal abscess; K56.7 Ileus, unspecified; K91.873 Postprocedural seroma of a digestive system organ or structure following other procedure; J98.11 Atelectasis; T85.79XA Infection and inflammatory reaction due to other internal prosthetic devices, implants and grafts, initial encounter; K42.0 Umbilical hernia with obstruction, without gangrene
CPT/HCPCS: 36415; 36430; 51702; 74018; 74019; 74177; 80053; 83735; 83880; 84100; 85025; 85027; 86850; 86900; 86901; 86920; 86922; 87070; 87075; 87077; 87186; 87205; 88300; 88302; 88305; 94640; 94762; A9270-GY; C1713; C1781; C9113; J0171; J0330; J0456; J1100; J1170; J1940; J2001; J2020; J2185; J2405; J2704; J2710; J2765; J2795; J3010; J3410; J3475; J3490; J7050; J7120; J7121; J7620-GY; P9016; P9047; Q9967

== ENCOUNTER 2021-09-21 03:34 | Emergency (ER) | payer MEDICAID ==
[2021-09-21 03:44] VITALS: BP 132/89; PULSE 113
== END 2021-09-21 04:18 | disposition home or self-care (01) ==
LOC: JP.ED 03:34
DX: K04.7 Periapical abscess without sinus (principal); J44.9 Chronic obstructive pulmonary disease, unspecified; F17.210 Nicotine dependence, cigarettes, uncomplicated; Z88.0 Allergy status to penicillin; Z91.048 Other nonmedicinal substance allergy status; Z88.8 Allergy status to other drugs, medicaments and biological substances; Z88.1 Allergy status to other antibiotic agents; Z88.7 Allergy status to serum and vaccine
CPT/HCPCS: 99282

== ENCOUNTER 2021-09-23 10:19 | Emergency (ER) | payer MEDICAID ==
[2021-09-23 10:52] VITALS: BP 152/90; PULSE 94
[2021-09-23] MEDS: Ketorolac 10 MG Tab PO ONE (13:16)
== END 2021-09-23 13:20 | disposition home or self-care (01) ==
LOC: JP.ED 10:19
DX: S39.011A Strain of muscle, fascia and tendon of abdomen, initial encounter (principal); J44.9 Chronic obstructive pulmonary disease, unspecified; F17.210 Nicotine dependence, cigarettes, uncomplicated; E66.9 Obesity, unspecified; Z68.34 Body mass index [BMI] 34.0-34.9, adult; Z86.16 Personal history of COVID-19; Z90.49 Acquired absence of other specified parts of digestive tract; Z90.710 Acquired absence of both cervix and uterus; Z79.899 Other long term (current) drug therapy; Z88.0 Allergy status to penicillin; Z88.8 Allergy status to other drugs, medicaments and biological substances; Z91.048 Other nonmedicinal substance allergy status; Z88.7 Allergy status to serum and vaccine; Z88.6 Allergy status to analgesic agent; Z88.1 Allergy status to other antibiotic agents; Z88.5 Allergy status to narcotic agent
CPT/HCPCS: 74176; 74176-26; 99282; 99284-25; A9270-GY

== ENCOUNTER 2022-05-31 16:39 | Emergency (ER) | payer MEDICAID ==
[2022-05-31 18:24] LABS: ESTIMATED GFR 84 mL/min (>60)
[2022-05-31 19:07] VITALS: BP 150/84; PULSE 75
== END 2022-05-31 18:58 | disposition home or self-care (01) ==
LOC: JP.ED 16:39
DX: R19.7 Diarrhea, unspecified (principal); J44.9 Chronic obstructive pulmonary disease, unspecified; K21.9 Gastro-esophageal reflux disease without esophagitis; F17.210 Nicotine dependence, cigarettes, uncomplicated; E66.9 Obesity, unspecified; Z88.0 Allergy status to penicillin; Z88.7 Allergy status to serum and vaccine; Z88.5 Allergy status to narcotic agent; Z88.8 Allergy status to other drugs, medicaments and biological substances; Z88.1 Allergy status to other antibiotic agents; Z91.048 Other nonmedicinal substance allergy status; Z86.16 Personal history of COVID-19; Z68.33 Body mass index [BMI] 33.0-33.9, adult
CPT/HCPCS: 36415; 80048; 82272; 83605; 85025; 85610; 85730; 86140; 99283

== ENCOUNTER 2022-07-23 14:08 | Emergency (ER) | payer MEDICAID ==
[2022-07-23 14:25] VITALS: BP 124/67
[2022-07-23 14:31] VITALS: PULSE 86
[2022-07-23] MEDS ORDERED: Alum Hydrox/Mag Hydrox/Simeth 15 ML, Lidocaine 2% 15 ML PO ONE ×2 (14:35)
[2022-07-23 15:09] LABS: ESTIMATED GFR 84 mL/min (>60); TROPONIN I HIGH SENSITIVITY 7.2 pg/mL (<=60.3)
== END 2022-07-23 16:09 | disposition home or self-care (01) ==
LOC: JP.ED 14:08
DX: R07.89 Other chest pain (principal); K22.4 Dyskinesia of esophagus; J44.9 Chronic obstructive pulmonary disease, unspecified; E66.9 Obesity, unspecified; Z86.16 Personal history of COVID-19; Z88.0 Allergy status to penicillin; Z91.048 Other nonmedicinal substance allergy status; Z88.7 Allergy status to serum and vaccine; Z88.5 Allergy status to narcotic agent; Z88.8 Allergy status to other drugs, medicaments and biological substances; Z88.1 Allergy status to other antibiotic agents; Z72.0 Tobacco use; Z68.33 Body mass index [BMI] 33.0-33.9, adult
CPT/HCPCS: 36415; 71046; 80053; 80305; 81001; 84484; 85025; 99285; A9270